=== PATIENT | male | born 1940 | race Caucasian/White ===

== ENCOUNTER 2020-04-26 23:43 | Inpatient (IN) | payer MEDICARE, SELFPAY ==
--- NOTE | ~2020-04-26 | CT_ITS ---
EXAMINATION: CT brain wo con INDICATION: Right-sided facial droop COMPARISON: None TECHNIQUE: Standard unenhanced head CT. The dose-length product (DLP) was 681.00 mGy-cm. The mA was a djusted according to patient size. Iterative reconstruction technique was employed. FINDINGS: There is no acute intraparenchymal hemorrhage. No evidence of mass lesion. No evidence of a cute infarction. There is moderate periventricular and subcortical hypodensity probably related to sm all vessel ischemic disease. There is moderate prominence of the sulci and ventricles related to cere bral atrophy. Intracranial calcified cerebral atherosclerosis is noted. There are no extra-axial henry ections. There is no mass effect or midline shift. The orbits and soft tissues are unremarkable. The re is mild mucosal thickening of the paranasal sinuses. IMPRESSION: 1. No acute intracranial abnormality. 2. Age related findings. As per stroke protocol, I called these results to the Emergency Department, and discussed with Dr. Yolanda Guajardo MD at 2350 hours on 04/26/2020. Reviewed, dictated and finalized at location A. E MANUFACTURE SUPERVISOR IMPRESSION: 1. No acute intracranial abnormality. 2. Age related findings. As per stroke protocol, I called these results to the Emergency Department, and discussed with Dr. Donte Guajardo MD at 2350 hours on 04/26/2020.
--- NOTE | ~2020-04-26 | XR_ITS ---
EXAMINATION: XR chest 1V portable DATE: 04/28/2020 08:43 INDICATION: COVID-19 pneumonia. Congestive heart failure. TECHNIQUE: A single frontal view of the chest was obtained. COMPARISON: Chest 2 views 04/27/2020 FINDINGS: There are airspace opacities in all lung zones bilaterally with a peripheral and lower lung predominance. No pleural effusion or pneumothorax. The heart size is normal. IMPRESSION: 1. Worsened diffuse lung disease, consistent with pneumonia. Reviewed, dictated and finalized at location B. ING MACHINE OPERATOR HELPER
--- NOTE | ~2020-04-26 | XR_ITS ---
EXAMINATION: XR chest 2V DATE: 04/27/2020 01:08 INDICATION: Shortness of breath TECHNIQUE: frontal and lateral views of the chest were obtained. COMPARISON: None FINDINGS: Evaluation particularly at the lower lung zones mildly limited by patient body habitus. Mild opacitie s at the lung bases which is better appreciated on the lateral projection. No pleural effusion or pne umothorax. The cardiomediastinal silhouette is within normal limits for AP technique. Small sliding-t ype hiatal hernia. 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 IMPRESSION: 1. Mild bibasilar opacities which could represent atelectasis, mild pulmonary edema, pneumonia or juliocesar e combination thereof. 2. Moderate-sized hiatal hernia. Reviewed, dictated and finalized at location A. ET SWEEPER OPERATOR IMPRESSION: 1. Mild bibasilar opacities which could represent atelectasis, mild pulmonary e lynn, pneumonia or some combination thereof. 2. Moderate-sized hiatal hernia.
[2020-04-26 23:43] VITALS: BP 150/84; PULSE 71; RESP 25; TEMP 36.8; O2SAT 81
--- NOTE | 2020-04-26 23:56 | ECG_ITS ---
Measurements Intervals [place] Rate: 71 P: 0 MD: 212 QRS: 25 QRSD: 136 T: 157 QT: 438 QTc: 477 Interpretive Statements SINUS RHYTHM WITH FIRST DEGREE AV BLOCK LEFT BUNDLE BRANCH BLOCK BASELINE ARTIFACT- I, II, AVR, AVL, AVF ABNORMAL ECG Electronically Signed On 04-27-2020 6:54:43 CAB DRIVER by Angel Dawn D.O.
[2020-04-27] VITALS (8 sets, daily range): BP systolic 97–157; BP diastolic 48–76; PULSE 70–89; RESP 18–20; TEMP 36.6–37.1; O2SAT 90–95; BMI 37.3
[2020-04-27 00:08] LABS: Glucose Point of Care 55 (65-105)
[2020-04-27 00:08] LABS: Glucose Point of Care 136 (65-105)
[2020-04-27] MEDS: DEXTROSE 50% 25 GM/50 ML SYRINGE (00:08)
--- NOTE | 2020-04-27 00:29 | PCRCNOTE ---
RT in room for ABG draw at 0010. Pt unavailable and out of room and continues to be out of room past 20 minutes
[2020-04-27 00:33] LABS: Basophils Percent Auto 0.1 % (0.2-1.2); Eosinophils Percent Auto 0.1 % (0-4.4); Hematocrit 37.2 % (42.0-52.0); Hemoglobin 12.4 g/dL (14.0-18.0); Immature Granulocyte Absolute 0.05 K/mm3 (0.00-0.031); Immature Granulocyte Percent A 0.6 % (0-0.5); Immature Platelet Fraction Pct 6.6 % (0.9-11.2); Lymphocytes Absolute Auto 1.01 K/mm3 (0.9-3.2); Lymphocytes Percent Auto 13.1 % (18.3-44.2); Mean Corpuscular HGB Conc 33.3 g/dl (32-36); Mean Corpuscular Hemoglobin 28.9 pg (26-34); Mean Corpuscular Volume 86.7 fl (80-100); Mean Platelet Volume 11.1 fl (7.4-10.4); Monocytes Absolute Auto 0.7 K/mm3 (0.1-0.6); Monocytes Percent Auto 9.1 % (2.6-8.5); Platelet Count Result 118 k/mm3 (150-375); Red Blood Count 4.29 M/mm3 (4.6-6.20); Red Cell Distribution Width 12.8 % (11.5-14.5); White Blood Count 7.7 K/mm3 (4.5-10.0)
[2020-04-27 00:35] LABS: INR 1.1; Prothrombin Time 14.3 Seconds (11.1-14.7)
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
[2020-04-27 00:38] LABS: Alanine Aminotransferase 38 U/L (4-50); Albumin Level 3.5 g/dL (3.5-5.1); Alkaline Phosphatase 72 U/L (38-126); Anion Gap 10 mmol/L (8-16); Aspartate Amino Transferase 68 U/L (17-59); Bilirubin,Total 1.2 mg/dL (0.2-1.3); Blood Urea Nitrogen 22 mg/dL (9-20); Calcium 8.4 mg/dL (8.4-10.2); Carbon Dioxide 22 mmol/L (22-30); Chloride 100 mmol/L (98-107); Estimated Glomerular Filt Rate > 60; Glucose 150 mg/dL (75-110); Potassium 4.6 mmol/L (3.4-5.0); Sodium 132 mmol/L (137-145)
[2020-04-27 00:47] LABS: NT Pro B Type Natriuretic Pept 1350 PG/ML (5-100)
[2020-04-27 00:50] LABS: Troponin I 0.022 ng/mL (0.000-0.034)
[2020-04-27 01:09] LABS: Atypical Lymphocytes Present
[2020-04-27 01:15] LABS: Base Excess ABG -1.6 mEq/l (+/-2.0); Carboxyhemoglobin 0.5 % THb (0-2.0); Fractional Inspired Oxygen 40 %; HCO3 ABG 20.6 mEq/l (22.0-26.0); Methemoglobin ABG 0.1 %THb (0-1.5); Oxygen Content ABG 17.3 %vol (16.0-22.0); Oxygen Saturation ABG 91.1 % (95.0-100.0); Oxyhemoglobin 89.7 % THb (90.0-100.0); PCO2 ABG 28.3 mmHg (35.0-45.0); PO2 ABG 54.7 mmHg (80.0-100.0); PO2 FiO2 Ratio Arterial Blood 1.37 %; Reduced Hemoglobin 9.7 %THb (0-5.0); Total Hemoglobin 13.7 g/dL (12.0-18.0)
[2020-04-27 01:16] LABS: Modified Allen's Test Pass; Site Drawn LEFT RADIAL
[2020-04-27 01:17] LABS: Device NASAL CANNULA
[2020-04-27 01:34] LABS: Glucose Point of Care 105 (65-105)
--- NOTE | 2020-04-27 02:12 | PC.NURSE ---
report to 3rd floor, room not ready.
[2020-04-27] MEDS: FUROSEMIDE INJ 40 MG/4 ML VIAL IV PUSH ×3 (02:23→20:54)
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
[2020-04-27 05:34] LABS: Add Urine Microscopic? YES; Appearance Urine Clear (Clear); Bilirubin Urine Negative (Negative); Blood Urine 1+ (Negative); Color Urine Straw (Yellow); Glucose Urine UA Negative (Negative); Ketones Urine Negative (Negative); Leukocyte Esterase Ur Negative LEU/UL (Negative); Mucus Urine Rare /lpf; Nitrate Urine Negative (Negative); Protein Urine 1+ mg/dL (Negative); RBC Urine 0-2 /hpf (0-2); Specific Grav Ur 1.008 (1.001-1.035); Urobilinogen Urine Negative mg/dL (<2.0); WBC Urine 0-3 /hpf
--- NOTE | 2020-04-27 05:42 | ADMGEN ---
This patient, Sae Wing, was admitted to [facility] Surg Room 306-01. Patient/family oriented to hospital policies and general routines including ID bracelet, bed and alarms, visiting hours, pain management, procedures, bathroom and other care routines, personal items, smoking policy, room service/diet, and visiting hours. Information on how to activate the Rapid Response Team has been discussed. Patient/Family are encouraged to report perceived risks to care and to ask questions if they do not understand what they are told or what they should do.
--- NOTE | 2020-04-27 06:09 | PC.NURSE ---
ATTEMPTS MADE X3 TO CALL PT'S SPOUSE TO CONFIRM MEDS AND VERIFY PT'S REPORTED HEALTH HX UPON ADMISSION, PT IS POOR HISTORIAN.
[2020-04-27 10:08] LABS: Thyroid Stimulating Hormone Reflex 0.801 uIU/mL (0.465-4.68)
[2020-04-27] MEDS: ATORVASTATIN 40 MG TABLET PO (10:35)
[2020-04-27] MEDS: CITALOPRAM HYDROBROMIDE 20 MG TABLET PO (10:35)
[2020-04-27] MEDS: GLIMEPIRIDE 2 MG TABLET 4 MG PO (10:35)
[2020-04-27] MEDS: FAMOTIDINE 20 MG TABLET PO (10:36)
[2020-04-27] MEDS: PANTOPRAZOLE 40 MG TABLET PO (10:36)
[2020-04-27] MEDS: lisinopriL 10 MG TABLET PO (10:36)
[2020-04-27] MEDS: ASPIRIN 325 MG TABLET PO (10:36)
[2020-04-27] MEDS: amLODIPine BESYLATE 5 MG TABLET PO (10:36)
[2020-04-27] MEDS: ENOXAPARIN 40 MG/0.4 ML SYRINGE SUB-Q (10:37)
[2020-04-27 11:21] LABS: Folic Acid > 20.0 ng/mL (2.76->20)
[2020-04-27 12:48] LABS: Glucose Point of Care 143 (65-105)
--- NOTE | 2020-04-27 16:16 | PM.IMPN ---
Progress Note: A&P Assessment and Plan (1) Acute respiratory failure with hypoxemia: Code(s): J96.01 - Acute respiratory failure with hypoxia Status: Acute Assessment and Plan: -noted on ABG on admission -chest x-ray shows pulmonary edema versus pneumonia -because of his lower extremity swelling, I suspect this is CHF. Will continue Lasix b.i.d. await echo -intake and output does not appear to be accurate at this time but I have asked nursing staff to record these -he was not on any oxygen during my exam although it was charted that he was 91% on 4 L earlier today -COVID-19 seems less likely, will await testing -no leukocytosis or fever, pneumonia seems less likely. No antibiotics needed at this time (2) Acute encephalopathy: Code(s): G93.40 - Encephalopathy, unspecified Status: Acute Assessment and Plan: Likely secondary to hypoglycemia -CT of the brain did not show any acute abnormalities -TSH normal -monitor neuro checks and obtain MRI if he continues to be confused (3) CHF exacerbation: Qualifiers: Heart failure type: unspecified Qualified Code(s): I50.9 - Heart failure, unspecified Code(s): I50.9 - Heart failure, unspecified Status: Acute Assessment and Plan: Unknown history - Continue IV lasix. -continue 2gram sodium prudent, fluid restricted diet. -Monitor fluid status, Daily weights, Is and O -await echo (4) Generalized weakness: Code(s): R53.1 - Weakness Status: Acute Assessment and Plan: PT and OT ordered (5) Person under investigation for COVID-19: Code(s): Z20.828 - Contact with and (suspected) exposure to other viral communicable diseases Status: Acute Assessment and Plan: Awaiting COVID-19 testing - Continue droplet isolation. - Continue supportive measures. Bronchodilators. (6) Normocytic anemia: Code(s): D64.9 - Anemia, unspecified Status: Acute Assessment and Plan: Stable monitor hemoglobin (7) Thrombocytopenia: Code(s): D69.6 - Thrombocytopenia, unspecified Status: Acute Assessment and Plan: Mildly low, will monitor especially while on Lovenox. If drops less than 100, will hold Lovenox (8) Diabetes: Qualifiers: Diabetes mellitus type: type 2 Diabetes mellitus terminal block assembler insulin use: with terminal block assembler use Diabetes mellitus complication status: without complication Qualified Code(s): E11.9 - Type 2 diabetes mellitus without complications; Z79.4 - terminal carman (current) use of insulin Code(s): E11.9 - Type 2 diabetes mellitus without complications Status: Chronic Assessment and Plan: Patient had hypoglycemia the day of admission -will draw A1c in the morning and possibly adjust medications -continue Accuchecks, SSI coverage, hypoglycemic protocol. (9) GERD (gastroesophageal reflux disease): Qualifiers: Esophagitis presence: esophagitis presence not specified Qualified Code(s): K21.9 - Gastro-esophageal reflux disease without esophagitis Code(s): K21.9 - Gastro-esophageal reflux disease without esophagitis Status: Chronic Assessment and Plan: Continue PPI therapy. (10) Hyperlipidemia: Qualifiers: Hyperlipidemia type: unspecified Qualified Code(s): E78.5 - Hyperlipidemia, unspecified Code(s): E78.5 - Hyperlipidemia, unspecified Status: Chronic Assessment and Plan: Continue atorvastatin PO. (11) Hypertension: Qualifiers: Hypertension type: unspecified Qualified Code(s): I10 - Essential (primary) hypertension Code(s): I10 - Essential (primary) hypertension Status: Chronic Assessment and Plan: Last blood pressure 111/59 -continue Lasix, Norvasc, and lisinopril Time Spent With Patient Time with patient: 25 - 35 minutes Subjective Date/time seen: 04/27/
[2020-04-27 18:52] LABS: SARS-CoV-2 RNA PCR Positive
[2020-04-27 21:38] LABS: Glucose Point of Care 128 (65-105)
[2020-04-28] VITALS (9 sets, daily range): BP systolic 93–147; BP diastolic 60–83; PULSE 66–89; RESP 18–20; TEMP 36–36.6; O2SAT 90–97
--- NOTE | 2020-04-28 04:43 | ECHO_ITS ---
Patient Info Name: Sae Wing Age: 79 years : 1940 Gender: Male Ht: 71 in Wt: 267 lbs BSA: 2.51 m2 HR: 84 bpm BP: 157 / 75 mmHg Technical Quality: Poor Exam Date: 04/28/2020 7:57 AM Exam Location: [facility] Patient Status: Inpatient Admit Date: 04/27/2020 Staff Ordering Physician: Sergio Rodriguez MD Check Viewer: Axel Das, JOSS, RT Attending Provider: Ирина Mcintosh PA-C Referring Physician: Jennifer SOMMER; Exam Type: CA echo doppler color flow Study Info Indications I50.9 - Heart failure, unspecified Complete two-dimensional, color flow and Doppler transthoracic echocardiogram is performed. Summary 1. Complete two-dimensional, color flow and Doppler transthoracic echocardiogram is performed. 2. Technically suboptimal study due to poor sonographic images. Definity contrast was not utilized. 3. Left ventricular chamber dimension is moderately enlarged. 4. Left ventricular systolic function is grossly estimated to be moderately reduced, estimated at 40-45%. 5. There is moderately increased left ventricular wall thickness. 6. Left ventricular septal wall motion is abnormal with septal motion related to bundle branch block. 7. The left ventricular diastolic function is grade I diastolic dysfunction. 8. E/e' 14 is mildly elevated. 9. Left atrial chamber dimension is mildly enlarged. 10. The aortic valve is not well visualized. 11. There is moderate aortic valve sclerosis. 12. The mitral valve has severely calcified annulus. 13. There is mild tricuspid valve regurgitation. Left Ventricle Technically suboptimal study due to poor sonographic images. Definity contrast was not utilized. E/e' 14 is mildly elevated. Left ventricular systolic function is grossly estimated to be moderately reduced, estimated at 40-45%. Left ventricular chamber dimension is moderately enlarged. There is moderately increased left ventricular wall thickness. Left ventricular septal wall motion is abnormal with septal motion related to bundle branch block. The left ventricular diastolic function is grade I diastolic dysfunction. Right Ventricle Right ventricular chamber dimension is not well visualized. Left Atria Left atrial chamber dimension is mildly enlarged. Right Atria Right atrial chamber dimension is not well visualized. Aortic Valve There is no aortic valve stenosis, based on valve area and peak velocity. Cannot determine number of aortic valve leaflets. The aortic valve is not well visualized. There is moderate aortic valve sclerosis. There is no aortic valve regurgitation. Pulmonic Valve There is no pulmonic regurgitation. Mitral Valve The mitral valve has severely calcified annulus. There is no mitral valve stenosis. There is no mitral valve regurgitation. Tricuspid Valve RVSP is not calculated due to an inadequate TR jet. There is mild tricuspid valve regurgitation. Pericardium/Pleural There is no pericardial effusion. Inferior Vena Cava Normal inferior vena cava with >50% collapse upon inspiration consistent with normal right atrial pressure, 5 mmHg. Aorta The aortic root size at the sinus of Valsalva is normal. Left Ventricular Outflow Tract Name Value Normal LVOT 2D
[2020-04-28 06:10] LABS: Hemoglobin 12.6 g/dL (14.0-18.0); Immature Platelet Fraction Pct 6.8 % (0.9-11.2); Mean Corpuscular HGB Conc 34.1 g/dl (32-36); Mean Corpuscular Hemoglobin 29.6 pg (26-34); Mean Corpuscular Volume 87.1 fl (80-100); Mean Platelet Volume 10.8 fl (7.4-10.4); Platelet Count Result 123 k/mm3 (150-375); Red Blood Count 4.25 M/mm3 (4.6-6.20); Red Cell Distribution Width 12.7 % (11.5-14.5); White Blood Count 7.6 K/mm3 (4.5-10.0)
[2020-04-28 06:24] LABS: Anion Gap 9 mmol/L (8-16); Blood Urea Nitrogen 27 mg/dL (9-20); Calcium 8.1 mg/dL (8.4-10.2); Carbon Dioxide 24 mmol/L (22-30); Chloride 101 mmol/L (98-107); Estimated CRCL calculation 61 ml/min; Estimated Glomerular Filt Rate 59; Glucose 100 mg/dL (75-110); Magnesium 1.8 mg/dL (1.6-2.3); Sodium 134 mmol/L (137-145)
[2020-04-28 06:25] LABS: Hemoglobin A1C 8.3 % (<5.7)
[2020-04-28 08:44] LABS: Alanine Aminotransferase 44 U/L (4-50)
[2020-04-28] MEDS: DEXAMETHASONE SOD PHOS INJ 4 MG/ML VIAL 6 MG IV PUSH (10:37)
[2020-04-28] MEDS: FUROSEMIDE INJ 40 MG/4 ML VIAL IV PUSH (10:38)
[2020-04-28] MEDS: ASPIRIN 325 MG TABLET PO (10:38)
[2020-04-28] MEDS: ENOXAPARIN 40 MG/0.4 ML SYRINGE SUB-Q (10:38)
[2020-04-28] MEDS: REMDESIVIR 200 MG/NS 250 ML 200 MG/250 ML BAG 250 MG IVPB (10:38)
[2020-04-28] MEDS: GLIMEPIRIDE 2 MG TABLET PO (10:39)
[2020-04-28] MEDS: CITALOPRAM HYDROBROMIDE 20 MG TABLET PO (10:39)
[2020-04-28] MEDS: ATORVASTATIN 40 MG TABLET PO (10:39)
[2020-04-28] MEDS: FAMOTIDINE 20 MG TABLET PO (10:40)
[2020-04-28] MEDS: PANTOPRAZOLE 40 MG TABLET PO (10:40)
[2020-04-28 12:40] LABS: Glucose Point of Care 137 (65-105)
--- NOTE | 2020-04-28 15:09 | PM.IMPN ---
Progress Note: A&P Assessment and Plan (1) Pneumonia due to COVID-19 virus: Code(s): U07.1 - COVID-19; J12.89 - Other viral pneumonia Status: Acute Assessment and Plan: Continue Remdesivir and Decadron -patient is currently on 4 L of oxygen and appears stable at this time (2) Acute respiratory failure with hypoxemia: Code(s): J96.01 - Acute respiratory failure with hypoxia Status: Acute Assessment and Plan: -due to COVID-19 pneumonia -patient is on 4 L of oxygen and appears stable at this time -will wean oxygen as tolerated -chest x-ray shows pulmonary edema versus pneumonia--likely a combination of both but mostly COVID-19 pneumonia -will adjust Lasix to daily. Echo shows EF of 40% (3) Acute encephalopathy: Code(s): G93.40 - Encephalopathy, unspecified Status: Acute Assessment and Plan: Likely secondary to hypoglycemia -CT of the brain did not show any acute abnormalities -TSH normal -no worsening confusion noted (4) Generalized weakness: Code(s): R53.1 - Weakness Status: Acute Assessment and Plan: PT and OT ordered (5) Normocytic anemia: Code(s): D64.9 - Anemia, unspecified Status: Acute Assessment and Plan: Stable monitor hemoglobin (6) Thrombocytopenia: Code(s): D69.6 - Thrombocytopenia, unspecified Status: Acute Assessment and Plan: Mildly low, will monitor especially while on Lovenox. If drops less than 100, will hold Lovenox (7) Diabetes: Qualifiers: Diabetes mellitus type: type 2 Diabetes mellitus terminal operations manager insulin use: with correction use Diabetes mellitus complication status: without complication Qualified Code(s): E11.9 - Type 2 diabetes mellitus without complications; Z79.4 - MCC (current) use of insulin Code(s): E11.9 - Type 2 diabetes mellitus without complications Status: Chronic Assessment and Plan: Patient had hypoglycemia the day of admission -likely due to decreased appetite due to COVID-19 -Last A1c 8.3 -continue Accuchecks, SSI coverage, hypoglycemic protocol. (8) GERD (gastroesophageal reflux disease): Qualifiers: Esophagitis presence: esophagitis presence not specified Qualified Code(s): K21.9 - Gastro-esophageal reflux disease without esophagitis Code(s): K21.9 - Gastro-esophageal reflux disease without esophagitis Status: Chronic Assessment and Plan: Continue PPI therapy. (9) Hyperlipidemia: Qualifiers: Hyperlipidemia type: unspecified Qualified Code(s): E78.5 - Hyperlipidemia, unspecified Code(s): E78.5 - Hyperlipidemia, unspecified Status: Chronic Assessment and Plan: Continue atorvastatin PO. (10) Hypertension: Qualifiers: Hypertension type: unspecified Qualified Code(s): I10 - Essential (primary) hypertension Code(s): I10 - Essential (primary) hypertension Status: Chronic Assessment and Plan: Last blood pressure 129/65 -continue Lasix, Norvasc, and lisinopril (11) Acute systolic heart failure: Code(s): I50.21 - Acute systolic (congestive) heart failure Status: Acute Assessment and Plan: Echo reveals systolic CHF with the ejection fraction of 40-45% -medical records show Dr. griffith in 2016 had records from [place] which showed an echo in 2006 within normal EF. That is the latest echo that I can find in the chart -should follow up with Dr. griffith outpatient after his recovery -will start Coreg low dose and monitor him -continue home lisinopril and lovastatin Subjective Date/time seen: 04/28/20 15:09 Interval history: Pt is a 79-year-old male here for likely CHF. Patient was seen today and has no complaints. He denies nausea, vomiting, fevers, chills, cough, chest pain, or shortness of breath. He states he can lay flat without any issues.
[2020-04-28 16:39] LABS: Glucose Point of Care 263 (65-105)
[2020-04-28] MEDS: INSULIN ASPART (*BKC) 100 UNITS/ML SUB-Q (17:57)
[2020-04-28] MEDS: carvediloL 3.125 MG TABLET PO (21:13)
[2020-04-28 21:31] LABS: Glucose Point of Care 319 (65-105)
[2020-04-29] VITALS (10 sets, daily range): BP systolic 124–150; BP diastolic 44–73; PULSE 54–78; RESP 18–20; TEMP 36.2–36.6; O2SAT 90–95
[2020-04-29 06:44] LABS: Alanine Aminotransferase 43 U/L (4-50)
[2020-04-29 06:58] LABS: Alanine Aminotransferase 42 U/L (4-50); Albumin Level 3.4 g/dL (3.5-5.1); Alkaline Phosphatase 83 U/L (38-126); Anion Gap 10 mmol/L (8-16); Aspartate Amino Transferase 61 U/L (17-59); Blood Urea Nitrogen 36 mg/dL (9-20); Calcium 8.1 mg/dL (8.4-10.2); Carbon Dioxide 25 mmol/L (22-30); Chloride 101 mmol/L (98-107); Estimated CRCL calculation 57 ml/min; Estimated Glomerular Filt Rate 54; Glucose 276 mg/dL (75-110); Potassium 4.3 mmol/L (3.4-5.0); Sodium 136 mmol/L (137-145)
[2020-04-29 07:16] LABS: CRP 15.6 mg/dL (<1.0)
[2020-04-29] MEDS: FAMOTIDINE 20 MG TABLET PO (09:24)
[2020-04-29] MEDS: CITALOPRAM HYDROBROMIDE 20 MG TABLET PO (09:24)
[2020-04-29] MEDS: PANTOPRAZOLE 40 MG TABLET PO (09:24)
[2020-04-29] MEDS: ATORVASTATIN 40 MG TABLET PO (09:24)
[2020-04-29] MEDS: ASPIRIN 325 MG TABLET PO (09:27)
[2020-04-29] MEDS: carvediloL 3.125 MG TABLET PO ×2 (09:28→20:58)
[2020-04-29] MEDS: ENOXAPARIN 40 MG/0.4 ML SYRINGE SUB-Q ×2 (09:29→20:59)
[2020-04-29] MEDS: DEXAMETHASONE SOD PHOS INJ 4 MG/ML VIAL 6 MG IV PUSH (09:29)
[2020-04-29] MEDS: FUROSEMIDE INJ 40 MG/4 ML VIAL IV PUSH (09:30)
[2020-04-29] MEDS: INSULIN ASPART (*BKC) 100 UNITS/ML SUB-Q ×3 (09:48→17:52)
[2020-04-29 09:56] LABS: Glucose Point of Care 340 (65-105)
[2020-04-29] MEDS: REMDESIVIR 100 MG/NS 250 ML 100 MG/250 ML BAG 250 MG IVPB (11:44)
--- NOTE | 2020-04-29 16:31 | PM.IMPN ---
Progress Note: A&P Assessment and Plan (1) Pneumonia due to COVID-19 virus: Code(s): U07.1 - COVID-19; J12.89 - Other viral pneumonia Status: Acute Assessment and Plan: Continue Remdesivir and Decadron -patient is currently on 4 L of oxygen and appears stable at this time -will wean oxygen as tolerated (2) Acute respiratory failure with hypoxemia: Code(s): J96.01 - Acute respiratory failure with hypoxia Status: Acute Assessment and Plan: -due to COVID-19 pneumonia -patient is on 4 L of oxygen and appears stable at this time -will wean oxygen as tolerated -chest x-ray shows pulmonary edema versus pneumonia--likely a combination of both but mostly COVID-19 pneumonia -continue Lasix daily. Echo shows EF of 40% (3) Acute encephalopathy: Code(s): G93.40 - Encephalopathy, unspecified Status: Acute Assessment and Plan: Likely secondary to hypoglycemia -CT of the brain did not show any acute abnormalities -TSH normal -no worsening confusion noted (4) Generalized weakness: Code(s): R53.1 - Weakness Status: Acute Assessment and Plan: PT and OT ordered (5) Normocytic anemia: Code(s): D64.9 - Anemia, unspecified Status: Acute Assessment and Plan: Stable monitor hemoglobin (6) Thrombocytopenia: Code(s): D69.6 - Thrombocytopenia, unspecified Status: Acute Assessment and Plan: Mildly low, will monitor especially while on Lovenox. If drops less than 100, will hold Lovenox (7) Diabetes: Qualifiers: Diabetes mellitus complication status: without complication Diabetes mellitus supervisor maintenance and custodians insulin use: with supervisor maintenance and custodians use Diabetes mellitus type: type 2 Qualified Code(s): E11.9 - Type 2 diabetes mellitus without complications; Z79.4 - penitentiary (current) use of insulin Code(s): E11.9 - Type 2 diabetes mellitus without complications Status: Chronic Assessment and Plan: Patient had hypoglycemia the day of admission -likely due to decreased appetite due to COVID-19 -patient is now hyperglycemic due to steroids and eating more. Will add back Lantus and continue Amaryl. Amaryl may be increased if he continues to run high -Last A1c 8.3 -continue Accuchecks, SSI coverage, hypoglycemic protocol. (8) GERD (gastroesophageal reflux disease): Qualifiers: Esophagitis presence: esophagitis presence not specified Qualified Code(s): K21.9 - Gastro-esophageal reflux disease without esophagitis Code(s): K21.9 - Gastro-esophageal reflux disease without esophagitis Status: Chronic Assessment and Plan: Continue PPI therapy. (9) Hyperlipidemia: Qualifiers: Hyperlipidemia type: unspecified Qualified Code(s): E78.5 - Hyperlipidemia, unspecified Code(s): E78.5 - Hyperlipidemia, unspecified Status: Chronic Assessment and Plan: Continue atorvastatin PO. (10) Hypertension: Qualifiers: Hypertension type: unspecified Qualified Code(s): I10 - Essential (primary) hypertension Code(s): I10 - Essential (primary) hypertension Status: Chronic Assessment and Plan: Last blood pressure 132/62 -continue Lasix, carvedilol, Norvasc, and lisinopril (11) Acute systolic heart failure: Code(s): I50.21 - Acute systolic (congestive) heart failure Status: Acute Assessment and Plan: Echo reveals systolic CHF with the ejection fraction of 40-45% -medical records show Dr. griffith in 2016 had records from [place] which showed an echo in 2006 within normal EF. That is the latest echo that I can find in the chart -should follow up with Dr. griffith outpatient after his recovery -low-dose Coreg started 04/28 -continue home lisinopril and atorvastatin Subjective Date/time seen: 04/29/20 16:31 Interval history: Pt is a 79-year-old male here for likely CHF
[2020-04-29 17:57] LABS: Glucose Point of Care 351 (65-105)
[2020-04-29 17:57] LABS: Glucose Point of Care 419 (65-105)
[2020-04-29] MEDS: INSULIN GLARGINE (*BKC) 100 UNITS/ML 10 UNITS SUB-Q ×2 (18:00→20:58)
[2020-04-29 21:37] LABS: Glucose Point of Care 429 (65-105)
[2020-04-29] MEDS: INSULIN ASPART (*BKC) 100 UNITS/ML 6 UNITS SUB-Q (22:09)
[2020-04-30] VITALS (10 sets, daily range): BP systolic 125–140; BP diastolic 50–61; PULSE 55–67; RESP 16–22; TEMP 36.1–36.7; O2SAT 91–98
[2020-04-30 04:04] LABS: Glucose Point of Care 340 (65-105)
[2020-04-30 06:26] LABS: Hematocrit 34.8 % (42.0-52.0); Mean Corpuscular HGB Conc 34.5 g/dl (32-36); Mean Corpuscular Hemoglobin 29.9 pg (26-34); Mean Corpuscular Volume 86.6 fl (80-100); Mean Platelet Volume 10.8 fl (7.4-10.4); Platelet Count Result 165 k/mm3 (150-375); Red Blood Count 4.02 M/mm3 (4.6-6.20); Red Cell Distribution Width 12.4 % (11.5-14.5)
[2020-04-30 06:58] LABS: Alanine Aminotransferase 35 U/L (4-50); Albumin Level 3.1 g/dL (3.5-5.1); Alkaline Phosphatase 80 U/L (38-126); Anion Gap 9 mmol/L (8-16); Aspartate Amino Transferase 41 U/L (17-59); Bilirubin,Total 0.9 mg/dL (0.2-1.3); Blood Urea Nitrogen 41 mg/dL (9-20); CRP 6.9 mg/dL (<1.0); Calcium 8.2 mg/dL (8.4-10.2); Carbon Dioxide 26 mmol/L (22-30); Chloride 101 mmol/L (98-107); Estimated CRCL calculation 56 ml/min; Estimated Glomerular Filt Rate 54; Glucose 295 mg/dL (75-110); Potassium 4.1 mmol/L (3.4-5.0); Sodium 136 mmol/L (137-145)
[2020-04-30] MEDS: GLIMEPIRIDE 2 MG TABLET PO (08:46)
[2020-04-30] MEDS: INSULIN ASPART (*BKC) 100 UNITS/ML SUB-Q ×3 (08:46→18:03)
[2020-04-30] MEDS: FAMOTIDINE 20 MG TABLET PO (08:46)
[2020-04-30] MEDS: ASPIRIN 325 MG TABLET PO (08:46)
[2020-04-30] MEDS: CITALOPRAM HYDROBROMIDE 20 MG TABLET PO (08:47)
[2020-04-30] MEDS: carvediloL 3.125 MG TABLET PO ×2 (08:47→20:12)
[2020-04-30] MEDS: ENOXAPARIN 40 MG/0.4 ML SYRINGE SUB-Q ×2 (08:47→20:12)
[2020-04-30] MEDS: FUROSEMIDE INJ 40 MG/4 ML VIAL IV PUSH (08:47)
[2020-04-30] MEDS: PANTOPRAZOLE 40 MG TABLET PO (08:47)
[2020-04-30] MEDS: DEXAMETHASONE SOD PHOS INJ 4 MG/ML VIAL 6 MG IV PUSH (08:47)
[2020-04-30] MEDS: ATORVASTATIN 40 MG TABLET PO (08:47)
[2020-04-30 09:08] LABS: Glucose Point of Care 276 (65-105)
[2020-04-30] MEDS: REMDESIVIR 100 MG/NS 250 ML 100 MG/250 ML BAG 250 MG IVPB (10:46)
[2020-04-30] MEDS: INSULIN ASPART (*BKC) 100 UNITS/ML 10 UNITS SUB-Q (13:11)
[2020-04-30 14:26] LABS: Glucose Point of Care 434 (65-105)
[2020-04-30 14:56] LABS: Glucose Point of Care 446 (65-105)
--- NOTE | 2020-04-30 16:04 | PM.IMPN ---
Progress Note: A&P Assessment and Plan (1) Pneumonia due to COVID-19 virus: Code(s): U07.1 - COVID-19; J12.89 - Other viral pneumonia Status: Acute Assessment and Plan: Continue Remdesivir and Decadron -patient is currently on room air and doing well -will likely discharge tomorrow once glucose has improved (2) Acute respiratory failure with hypoxemia: Code(s): J96.01 - Acute respiratory failure with hypoxia Status: Acute Assessment and Plan: -due to COVID-19 pneumonia -currently on room air -chest x-ray shows pulmonary edema versus pneumonia--likely a combination of both but mostly COVID-19 pneumonia -continue Lasix daily. Echo shows EF of 40% (3) Acute encephalopathy: Code(s): G93.40 - Encephalopathy, unspecified Status: Acute Assessment and Plan: Likely secondary to hypoglycemia -CT of the brain did not show any acute abnormalities -TSH normal -no worsening confusion noted (4) Generalized weakness: Code(s): R53.1 - Weakness Status: Acute Assessment and Plan: PT and OT ordered (5) Normocytic anemia: Code(s): D64.9 - Anemia, unspecified Status: Acute Assessment and Plan: Stable monitor hemoglobin (6) Thrombocytopenia: Code(s): D69.6 - Thrombocytopenia, unspecified Status: Acute Assessment and Plan: Within normal limits today -monitor while on Lovenox (7) Diabetes: Qualifiers: Diabetes mellitus type: type 2 Diabetes mellitus correction insulin use: with correction use Diabetes mellitus complication status: without complication Qualified Code(s): E11.9 - Type 2 diabetes mellitus without complications; Z79.4 - jail (current) use of insulin Code(s): E11.9 - Type 2 diabetes mellitus without complications Status: Chronic Assessment and Plan: Patient had hypoglycemia the day of admission -likely due to decreased appetite due to COVID-19 -patient is now hyperglycemic due to steroids and eating more. Sliding scale and long-acting insulin increased. -Amaryl may be increased if he continues to run high tomorrow. I do not want is overcorrect as he was hypoglycemic on admission -Last A1c 8.3 -continue Accuchecks, SSI coverage, hypoglycemic protocol. (8) GERD (gastroesophageal reflux disease): Qualifiers: Esophagitis presence: esophagitis presence not specified Qualified Code(s): K21.9 - Gastro-esophageal reflux disease without esophagitis Code(s): K21.9 - Gastro-esophageal reflux disease without esophagitis Status: Chronic Assessment and Plan: Continue PPI therapy. (9) Hyperlipidemia: Qualifiers: Hyperlipidemia type: unspecified Qualified Code(s): E78.5 - Hyperlipidemia, unspecified Code(s): E78.5 - Hyperlipidemia, unspecified Status: Chronic Assessment and Plan: Continue atorvastatin PO. (10) Hypertension: Qualifiers: Hypertension type: unspecified Qualified Code(s): I10 - Essential (primary) hypertension Code(s): I10 - Essential (primary) hypertension Status: Chronic Assessment and Plan: Last blood pressure 140/56 -continue Lasix, carvedilol, Norvasc, and lisinopril (11) Acute systolic heart failure: Code(s): I50.21 - Acute systolic (congestive) heart failure Status: Acute Assessment and Plan: Echo reveals systolic CHF with the ejection fraction of 40-45% -medical records show Dr. griffith in 2016 had records from [place] which showed an echo in 2006 within normal EF. That is the latest echo that I can find in the chart -should follow up with Dr. griffith outpatient after his recovery -low-dose Coreg started 04/28 -continue home lisinopril and atorvastatin Subjective Date/time seen: 04/30/20 16:04 Interval history: Pt is a 79-year-old male here for COVID-19 and CHF. Patient was see
[2020-04-30] MEDS: BISACODYL 5 MG TABLET EC PO (16:20)
[2020-04-30 17:29] LABS: Glucose Point of Care 474 (65-105)
[2020-04-30] MEDS: INSULIN GLARGINE (*BKC) 100 UNITS/ML 10 UNITS SUB-Q (18:02)
[2020-04-30] MEDS: SENNOSIDES 8.6 MG TABLET PO (20:12)
[2020-04-30] MEDS: INSULIN GLARGINE (*BKC) 100 UNITS/ML 16 UNITS SUB-Q (20:13)
[2020-04-30] MEDS: INSULIN ASPART (*BKC) 100 UNITS/ML 12 UNITS SUB-Q (21:06)
[2020-04-30 21:36] LABS: Glucose Point of Care 459 (65-105)
[2020-05-01] VITALS: BP 143/60; PULSE 55; RESP 18; TEMP 36.2; O2SAT 90
[2020-05-01 01:13] LABS: Glucose Point of Care 329 (65-105)
[2020-05-01 04:00] VITALS: BP 144/78; PULSE 62; RESP 18; TEMP 36.2; O2SAT 91
[2020-05-01 07:25] LABS: Alanine Aminotransferase 29 U/L (4-50); Anion Gap 7 mmol/L (8-16); Blood Urea Nitrogen 39 mg/dL (9-20); Calcium 8.4 mg/dL (8.4-10.2); Carbon Dioxide 26 mmol/L (22-30); Chloride 102 mmol/L (98-107); Estimated CRCL calculation 65 ml/min; Estimated Glomerular Filt Rate > 60; Glucose 234 mg/dL (75-110); Potassium 4.1 mmol/L (3.4-5.0); Sodium 135 mmol/L (137-145)
[2020-05-01 08:00] VITALS: BP 151/63; PULSE 61; PULSE 67; RESP 18; RESP 20; TEMP 36.3; O2SAT 90; O2SAT 92
[2020-05-01 09:34] LABS: Glucose Point of Care 194 (65-105)
[2020-05-01] MEDS: ASPIRIN 325 MG TABLET PO (09:41)
[2020-05-01] MEDS: GLIMEPIRIDE 2 MG TABLET PO (09:42)
[2020-05-01] MEDS: ATORVASTATIN 40 MG TABLET PO (09:42)
[2020-05-01] MEDS: CITALOPRAM HYDROBROMIDE 20 MG TABLET PO (09:42)
[2020-05-01] MEDS: FAMOTIDINE 20 MG TABLET PO (09:42)
[2020-05-01 09:43] VITALS: PULSE 61
[2020-05-01] MEDS: carvediloL 3.125 MG TABLET PO (09:43)
[2020-05-01] MEDS: PANTOPRAZOLE 40 MG TABLET PO (09:43)
[2020-05-01] MEDS: BISACODYL 5 MG TABLET EC PO (09:43)
[2020-05-01] MEDS: ENOXAPARIN 40 MG/0.4 ML SYRINGE SUB-Q (09:43)
[2020-05-01] MEDS: DEXAMETHASONE SOD PHOS INJ 4 MG/ML VIAL 6 MG IV PUSH (09:43)
[2020-05-01] MEDS: FUROSEMIDE INJ 40 MG/4 ML VIAL IV PUSH (09:44)
[2020-05-01] MEDS: REMDESIVIR 100 MG/NS 250 ML 100 MG/250 ML BAG 250 MG IVPB (09:44)
[2020-05-01 12:00] VITALS: BP 176/64; PULSE 67; RESP 20; TEMP 36.4; O2SAT 92
[2020-05-01 12:15] LABS: Glucose Point of Care 345 (65-105)
--- NOTE | 2020-05-01 12:17 | PM.DS ---
DS: Admitting Diagnosis Admitting Diagnosis Admitting Diagnosis: covid pui, hypoxia, chf, metabolic encephalopathy DS: Discharge Diagnosis Discharge Diagnosis (1) Pneumonia due to COVID-19 virus: Code(s): U07.1 - COVID-19; J12.89 - Other viral pneumonia Status: Acute Assessment and Plan: Patient received Remdesivir and Decadron while hospitalized -he was weaned off oxygen before discharge -educated the patient and on quaranting guidelines (2) Acute respiratory failure with hypoxemia: Code(s): J96.01 - Acute respiratory failure with hypoxia Status: Acute Assessment and Plan: -due to COVID-19 pneumonia -on room air at discharge -chest x-ray shows pulmonary edema versus pneumonia--likely a combination of both but mostly COVID-19 pneumonia (3) Acute encephalopathy: Code(s): G93.40 - Encephalopathy, unspecified Status: Acute Assessment and Plan: Likely secondary to hypoglycemia -CT of the brain did not show any acute abnormalities -TSH normal -no worsening confusion noted (4) Generalized weakness: Code(s): R53.1 - Weakness Status: Acute Assessment and Plan: PT and OT ordered (5) Normocytic anemia: Code(s): D64.9 - Anemia, unspecified Status: Acute Assessment and Plan: Stable monitor hemoglobin (6) Thrombocytopenia: Code(s): D69.6 - Thrombocytopenia, unspecified Status: Acute Assessment and Plan: Within normal limits (7) Diabetes: Qualifiers: Diabetes mellitus complication status: without complication Diabetes mellitus group home insulin use: with intermediate manager use Diabetes mellitus type: type 2 Qualified Code(s): E11.9 - Type 2 diabetes mellitus without complications; Z79.4 - correction (current) use of insulin Code(s): E11.9 - Type 2 diabetes mellitus without complications Status: Chronic Assessment and Plan: Patient had hypoglycemia the day of admission -likely due to decreased appetite due to COVID-19 -patient is now hyperglycemic due to steroids and eating more. Glucose 345 but Decadron was stopped at discharge -continue home meds -Last A1c 8.3 (8) GERD (gastroesophageal reflux disease): Qualifiers: Esophagitis presence: esophagitis presence not specified Qualified Code(s): K21.9 - Gastro-esophageal reflux disease without esophagitis Code(s): K21.9 - Gastro-esophageal reflux disease without esophagitis Status: Chronic Assessment and Plan: Continue PPI therapy. (9) Hyperlipidemia: Qualifiers: Hyperlipidemia type: unspecified Qualified Code(s): E78.5 - Hyperlipidemia, unspecified Code(s): E78.5 - Hyperlipidemia, unspecified Status: Chronic Assessment and Plan: Continue atorvastatin PO. (10) Hypertension: Qualifiers: Hypertension type: unspecified Qualified Code(s): I10 - Essential (primary) hypertension Code(s): I10 - Essential (primary) hypertension Status: Chronic Assessment and Plan: Last blood pressure 176/64 -continue Lasix, carvedilol, Norvasc, and lisinopril (11) Acute systolic heart failure: Code(s): I50.21 - Acute systolic (congestive) heart failure Status: Acute Assessment and Plan: Echo reveals systolic CHF with the ejection fraction of 40-45% -medical records show Dr. griffith in 2016 had records from [place] which showed an echo in 2006 within normal EF. That is the latest echo that I can find in the chart -should follow up with Dr. griffith outpatient after his recovery. I spoke to his about this -low-dose Coreg started 04/28 -continue home lisinopril and atorvastatin -he was given Lasix during his stay. He is to follow with his primary care physician and/or poacher operator to see if this needs to be a routine medication. He was euvolemic at discharge DS: Summar
[2020-05-01] MEDS: INSULIN ASPART (*BKC) 100 UNITS/ML SUB-Q (12:35)
== END 2020-05-01 14:30 | disposition home health service (06) | DRG 177 ==
LOC: ANHED 04-27 01:39 → ANH3MEDSUR 04-27 01:45
PROVIDERS: Physician Assistant; Admitting Provider Family Medicine; Emergency Provider Emergency Medicine; PCP Internal Medicine; Visit Provider Family Medicine
DX: U07.1 COVID-19 (principal); J12.89 Other viral pneumonia; J96.01 Acute respiratory failure with hypoxia; G93.41 Metabolic encephalopathy; I50.21 Acute systolic (congestive) heart failure; I11.0 Hypertensive heart disease with heart failure; E11.649 Type 2 diabetes mellitus with hypoglycemia without coma; D64.9 Anemia, unspecified; D69.6 Thrombocytopenia, unspecified; K21.9 Gastro-esophageal reflux disease without esophagitis; E78.5 Hyperlipidemia, unspecified; G47.33 Obstructive sleep apnea (adult) (pediatric); Z96.653 Presence of artificial knee joint, bilateral; Z79.4 Long term (current) use of insulin; Z87.891 Personal history of nicotine dependence
CPT/HCPCS: 36415; 36600; 70450; 71045; 71046; 80048; 80053; 80076; 81001; 82375; 82607; 82746; 82805; 82948; 83036; 83050; 83735; 83880; 84443; 84460; 84484; 85025; 85027; 85055; 85610; 85730; 86140; 87635; 93005; 93306; 96372; 96374; 96375; 96376; 97110; 97116; 97161; 97165; 97530; 97535; 99285; A9270; C9803; G0378; J1100; J1650; J1815; J1940; U0003

== ENCOUNTER 2022-04-19 12:03 | Emergency (ER) | payer MEDICARE, SELFPAY ==
[2022-04-19] VITALS (10 sets, daily range): BP systolic 158–193; BP diastolic 69–85; PULSE 68–80; RESP 14–20; TEMP 36.1–36.4; O2SAT 94–98
--- NOTE | ~2022-04-19 | CT_ITS ---
EXAMINATION: CT brain wo con DATE: 04/19/2022 16:19 INDICATION: falls . TECHNIQUE: Computed tomography (CT) of the head was performed without intravenous contrast. The mA wa s adjusted according to patient size. Iterative reconstruction technique was employed. The dose-lengt h product was 681.00 mGy-cm. COMPARISON: 04/26/2020. FINDINGS: No acute intracranial hemorrhage or extra-axial fluid collection. No hydrocephalus, mass, or herniation. No acute ischemic infarct. Unremarkable dural venous sinus attenuation. No acute osseous abnormality. Mild mucosal thickening in the anterior ethmoid sinuses and bilateral maxillary sinuses, the remainin g aerated spaces are clear. Moderate atrophy and chronic white matter change. Atherosclerotic intracranial calcification. Bilater al lens replacements. Bilateral basal ganglia calcification. IMPRESSION: No acute intracranial process. Reviewed, dictated and finalized at location K. SITTER
--- NOTE | ~2022-04-19 | XR_ITS ---
XR chest 2V 04/19/2022 13:20 Indication: Productive cough Procedure: 2 view chest Comparison: 04/28/2020 Findings: There is chronic bibasilar airspace disease. Heart size normal. No significant effusion or pneumothorax. No acute osseous abnormality. Impression: 1: Chronic bibasilar airspace disease may represent atelectasis/fibrosis, atypical pneumonia and/or e lynn. Reviewed, dictated and finalized at location A. OPERATIONS INTELLIGENCE OFFICER Impression: 1: Chronic bibasilar airspace disease may represent atelectasis/fibrosis, atypi daiana pneumonia and/or edema.
--- NOTE | ~2022-04-19 | CT_ITS ---
EXAMINATION: CT cervical spine wo con DATE: 04/19/2022 16:24 INDICATION: falls TECHNIQUE: Computed tomography (CT) of the cervical spine was performed without intravenous contrast. Automated exposure control and iterative reconstruction technique were employed. The dose-length pro duct was 527.50 mGy-cm. COMPARISON: None FINDINGS: Vertebral Body Alignment: Intact. Craniocervical and atlantoaxial alignment: Moderate degenerative change, with pannus. Alignment intac t. Osseous structures/fracture: No evidence of a lytic or blastic process in the visualized spine. No e vidence of acute fracture. Degenerative changes at the bilateral sternoclavicular joints. Possible ol d medial left clavicular fracture. Cervical soft tissues: The paraspinal soft tissues planes are maintained. Atherosclerotic calcificati ons in the carotid bifurcations. Degenerative changes: Multilevel severe degenerative disc disease. No severe central canal or neural foraminal narrowing. Posteriorly directed disc protrusion/osteophyte complex at C4-5 ircausing mild c entral canal stenosis. IMPRESSION: No acute fracture or traumatic malalignment in the cervical spine. Reviewed, dictated and finalized at location K. GE RUNNER
--- NOTE | 2022-04-19 13:04 | ECG_ITS ---
Measurements Intervals [place] Rate: 77 P: -11 RI: 216 QRS: 23 QRSD: 142 T: 111 QT: 431 QTc: 489 Interpretive Statements SINUS RHYTHM WITH FIRST DEGREE AV BLOCK LEFT BUNDLE BRANCH BLOCK BASELINE ARTIFACT- I, II, III, AVR, AVL, AVF ABNORMAL ECG COMPARED TO ECG 04/26/2020 23:47:12 NO SIGNIFICANT CHANGES Electronically Signed On 04-19-2022 16:11:42 INTERFACE CONTROL OFFICER by Angel Dawn D.O.
[2022-04-19 15:23] LABS: Basophils Absolute Auto 0.1 K/mm3 (0.0-0.1); Basophils Percent Auto 0.5 % (0.2-1.2); Eosinophils Absolute Auto 0.3 K/mm3 (0-0.3); Eosinophils Percent Auto 2.2 % (0-4.4); Hematocrit 33.4 % (42.0-52.0); Hemoglobin 10.6 g/dL (14.0-18.0); Immature Granulocyte Absolute 0.09 K/mm3 (0.00-0.031); Immature Granulocyte Percent A 0.8 % (0-0.5); Lymphocytes Absolute Auto 1.84 K/mm3 (0.9-3.2); Lymphocytes Percent Auto 16.3 % (18.3-44.2); Mean Corpuscular HGB Conc 31.7 g/dl (32-36); Mean Corpuscular Hemoglobin 28.9 pg (26-34); Mean Platelet Volume 9.5 fl (7.4-10.4); Monocytes Absolute Auto 1.1 K/mm3 (0.1-0.6); Monocytes Percent Auto 9.8 % (2.6-8.5); Neutrophils Absolute Auto 7.9 K/mm3 (1.3-6.7); Neutrophils Percent Auto 70.4 % (45.5-73.1); Platelet Count Result 346 k/mm3 (150-375); Red Blood Count 3.67 M/mm3 (4.6-6.20); Red Cell Distribution Width 13.5 % (11.5-14.5); White Blood Count 11.3 K/mm3 (4.5-10.0)
--- NOTE | 2022-04-19 15:56 | ED.SOB ---
HPI - SOB/Dyspnea General Chief Complaint: Shortness of Breath/Dyspnea Stated Complaint: sent by pcp, she thinks I have pneumonia Time Seen by Provider: 04/19/22 14:56 History of Present Illness HPI Narrative: Patient is a 81-year-old male with a history of hypertension, hyperlipidemia, diabetes presenting with cough. Patient states that he has had a productive cough for the last 5 days. He was given an antibiotic by his PCP but unfortunately his symptoms have continued. States that he has had multiple falls with the last being approximately 2 to 3 days ago. States that after the fall he experienced some floaters in his vision which she does not currently have. States that he has had a headache since then. He was seen by his PCP earlier today who advised he come in for further evaluation given the multiple falls. There is concerned he has pneumonia. Currently, he states his only complaint is that he has to pee. He denies fevers, chest pain, shortness of breath, abdominal pain, nausea or vomiting, diarrhea, leg swelling. Related Data Home Medications Medication Instructions Recorded Confirmed aspirin 325 mg tablet 325 mg PO DAILY 04/27/20 04/19/22 glimepiride 4 mg tablet 4 mg PO DAILY 04/27/20 04/19/22 insulin detemir U-100 100 unit/mL 50 unit subcut DAILY 04/27/20 04/19/22 (3 mL) subcutaneous pen (Levemir FlexTouch U-100 Insulin) cholecalciferol (vitamin D3) 25 25 mcg PO DAILY 05/20/20 04/19/22 mcg (1,000 unit) capsule multivitamin 1 tablet PO DAILY 05/20/20 04/19/22 omega-3 fatty acids 1,000 mg 1,000 mg PO DAILY 05/20/20 04/19/22 capsule (Fish Oil Concentrate) famotidine 20 mg tablet 20 mg PO DAILY 03/17/22 04/19/22 insulin lispro 100 unit/mL 1 sliding scale dose subcut 03/17/22 04/19/22 subcutaneous pen (Humalog KwikPen USEASDIRECTD (U-100) Insulin) budesonide 160 mcg-glycopyr 9 2 inh inhalation QAM AND QPM 04/14/22 04/19/22 mcg-formot 4.8 mcg/actuation HFA inhaler (Breztri Aerosphere) Allergies Allergy/AdvReac Type Severity Reaction Status Date / Time No Known Allergies Allergy Verified 04/19/22 13:00 Review of Systems Review of Systems: All systems reviewed & are unremarkable except as noted in HPI and below PMFSH Past Medical History Medical History Arthritis Charcot foot due to diabetes mellitus Contusion of left hip, initial encounter Diabetes Diabetes 1.5, managed as type 1 Dyslipidemia Essential hypertension Fatigue GERD (gastroesophageal reflux disease) Hyperlipidemia Hypersomnia Hypertension LBBB (left bundle branch block) Obesity Obesity, Class III, BMI 40-49.9 (morbid obesity) Obstructive sleep apnea Obstructive sleep apnea, adult Peripheral neuropathy due to metabolic disorder Primary osteoarthritis of left hip Primary osteoarthritis of right hip Surgical History Surgical History History of facial surgery History of knee surgery History of repair of rotator cuff History of shoulder surgery History of total bilateral knee replacement Presence of left artificial knee joint Family History Family History Mother Family history of colonic diverticulitis Father Cerebrovascular accident Social History Social History Smoking packs per day: 3 Smoking cigarettes per day: 60.0 Years smoked: 3 Smoking pack-years: 9.00 Smoking status: Former smoker Tobacco type: cigarettes Second hand tobacco smoke exposure: No Alcohol intake: never Substance use: never Substance use type: does not use Gender identity (if verbalized by the patient): Male Sexual Orientation (if Verbalized by the Patient): Straight or Heterosexual Spiritual care concerns: No Exam Narrative: GENERAL: Well-appearing, well-nourished, and in no acute dis
[2022-04-19 16:55] LABS: Influenza A QL RT-PCR Negative (Negative); Influenza B QL RT-PCR Negative (Negative); SARS-CoV-2 RNA PCR Negative
[2022-04-19 17:05] LABS: Alanine Aminotransferase 53 U/L (6-50); Albumin Level 3.6 g/dL (3.5-5.1); Alkaline Phosphatase 133 U/L (38-126); Anion Gap 7 mmol/L (8-16); Aspartate Amino Transferase 50 U/L (17-59); Bilirubin,Total 0.8 mg/dL (0.2-1.3); Blood Urea Nitrogen 27 mg/dL (9-20); Calcium 8.5 mg/dL (8.4-10.2); Carbon Dioxide 26 mmol/L (22-30); Chloride 104 mmol/L (98-107); Estimated CRCL calculation 58 ml/min; Estimated Glomerular Filt Rate 58; Glucose 91 mg/dL (65-110); Sodium 137 mmol/L (137-145)
[2022-04-19] MEDS: SODIUM CHLORIDE 0.9% IV 1,000 ML 999 ML IV CONT (17:48)
[2022-04-19] MEDS: DOXYCYCLINE HYCLATE 100 MG TABLET PO (18:16)
== END 2022-04-19 19:28 | disposition home or self-care (01) ==
PROVIDERS: Emergency Provider Emergency Medicine; PCP Physician Assistant Medical
DX: J18.9 Pneumonia, unspecified organism (principal); Z20.822 Contact with and (suspected) exposure to COVID-19; M19.90 Unspecified osteoarthritis, unspecified site; E10.9 Type 1 diabetes mellitus without complications; I10 Essential (primary) hypertension; K21.9 Gastro-esophageal reflux disease without esophagitis; Z79.4 Long term (current) use of insulin
CPT/HCPCS: 36415; 70450; 71046; 72125; 80053; 85025; 87636; 93005; 96360; 99284; A9270; J7030

== ENCOUNTER 2023-06-01 23:31 | Inpatient (IN) | payer MEDICARE, SELFPAY ==
--- NOTE | ~2023-06-01 | MR_ITS ---
EXAMINATION: MR brain/brain stem wo/w con DATE: 06/08/2023 14:45 INDICATION: Encephalopathy. Slurred speech. TECHNIQUE: Magnetic resonance imaging (MRI) of the brain and brainstem was performed without and with 20 mL MultiHance intravenous contrast. COMPARISON: Brain MRI 06/04/2023, head CT 06/02/2023 FINDINGS: There is a small old infarct in left cerebellum. There is a small old infarct in left cauda te nucleus. There are scattered areas of nonspecific increased T2-weighted signal intensity in the ce rebral white matter, which is within normal limits for the patient's age. There is no intracranial he morrhage, acute infarction, or abnormal intracranial mass lesion. The ventricles are normal in size. There is mild mucosal thickening in the paranasal sinuses. There is a trace left mastoid effusion. Th ere are likely changes of ocular lens replacement surgeries. IMPRESSION: 1. 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 Reviewed, dictated and finalized at location E. E MACHINE OPERATOR
--- NOTE | ~2023-06-01 | XR_ITS ---
EXAMINATION: XR elbow RT 2V DATE: 06/07/2023 13:49 INDICATION: Right elbow swelling and limited range of motion TECHNIQUE: Anteroposterior, two oblique and lateral views of the right elbow were obtained. COMPARISON: None. FINDINGS: Alignment is normal. No fracture or joint effusion. 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 There is soft tissue swelling with some subcutaneous edema posterior to the elbow and proximal forearm. Pe ripheral IV at the volar aspect of the proximal right forearm. IMPRESSION: 1. 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 Reviewed, dictated and finalized at location A. CIPAL WEB DEVELOPER
--- NOTE | ~2023-06-01 | XR_ITS ---
EXAMINATION: XR lumbar puncture diagnostic DATE: 06/04/2023 12:47 INDICATION: Altered mental status TECHNIQUE: The procedure including the risks and benefits including spinal headache, cerebrospinal fl uid leak, bleeding, and infection were discussed with the patient's family who agreed to proceed. A timeout was performed to verify the patient's name, date of , and procedure to be performed. The skin overlying the L2-L3 level was prepped and draped in usual sterile fashion. Subcutaneous 1% lidocaine was used for local anesthesia. A 5 inch, 22 gauge spinal needle was advanced under fluoros copic guidance. The needle was removed and the entry site was cleaned and dressed. There were no imm ediate complications. A total of 2 fluoroscopic images and one crosstable lateral radiograph were obt ained. The amount of fluoroscopy time used during this procedure was 0.3 minutes. Total DAP was 19.11 8 Gycm^2. There were no immediate complications. FINDINGS: Real-time fluoroscopy demonstrates the needle at the L2-L3 level. Opening pressure was 20 c m water. (Normal range is variably defined as 6-20 cm water and up to 25 cm water in obese patients. Pressure >25 cm water is one of the modified Dandy criteria for idiopathic intracranial hypertension) . 12 mL of clear, colorless fluid was collected in 4 tubes. IMPRESSION: 1. Successful fluoro-guided lumbar puncture. Reviewed, dictated and finalized at location A. CTOR MEDIA
--- NOTE | ~2023-06-01 | XR_ITS ---
Portable chest x-ray Comparison: 06/02/2023 Clinical History: Shortness of breath Findings: There is mild nonspecific haziness left lung base. Right lung clear. Cardiomediastinal si lhouette is stable. Bones and soft tissues are unremarkable. Impression: Mild nonspecific haziness left lung base. Reviewed, dictated and finalized at [facility]. NG FACTORY WORKER Impression: Mild nonspecific haziness left lung base.
--- NOTE | ~2023-06-01 | CT_ITS ---
EXAMINATION: CTA chest PE abdomen pel DATE: 06/02/2023 02:48 INDICATION: Altered mental status and shortness of breath TECHNIQUE: Computed tomography angiography (CTA) of the chest was performed with 100 mL Omnipaque-350 intravenous contrast timed to evaluate the pulmonary arteries. Subsequent postcontrast images of the abdomen and pelvis are obtained. Coronal maximum intensity projection 3D-reconstructions were create d by the technologist. The dose-length product (DLP) was 3164.26 mGy-cm. Automated exposure control a nd iterative reconstruction technique were employed. COMPARISON: None. FINDINGS: CTA CHEST: Respiratory motion artifact limits the examination. The pulmonary arteries are well-opacif ied. No central pulmonary embolism is identified. There is smooth interlobular septal thickening of t he lungs. There are dependent airspace opacities in the lower lobes. No pleural effusion or pneumotho rax. The heart size is normal. There is mild mediastinal and hilar lymphadenopathy. There is severe t horacic spondylosis. There is an old fracture of the medial left clavicle. A sclerotic lesion of the left humeral head likely reflects an enchondroma. ABDOMEN/PELVIS CT: The liver, spleen, pancreas, gallbladder, and adrenal glands are normal. Streak an d motion artifact limits evaluation of the kidneys which appear grossly normal. There is calcified at herosclerosis of the aorta and many of the other arteries. No pathologically enlarged abdominal or pe lvic lymph nodes are identified. No free intraperitoneal gas or evidence of bowel obstruction. There is severe lumbar spondylosis. IMPRESSION: 1. No central pulmonary embolus identified, sensitivity limited by motion artifact. 2. Mild pulmonary edema. 3. Dependent airspace opacities of the lower lobes, consistent with atelectasis and pneumonia. 4. Mild mediastinal and hilar lymphadenopathy, likely reactive. 5. No acute abnormality of the abdomen or pelvis. Reviewed, dictated and finalized at location F. ING WAITER OR WAITRESS IMPRESSION: 1. No central pulmonary embolus identified, sensitivity limited by motion artif act. 2. Mild pulmonary edema. 3. Dependent airspace opacities of the lower lobes, consistent with atelectasis and pneumonia. 4. Mild mediastinal and hilar lymphadenopathy, likely reactive. 5. No acute abnormality of the abdomen or pelvis.
--- NOTE | ~2023-06-01 | CT_ITS ---
EXAMINATION: CT brain wo con INDICATION: Altered mental status COMPARISON: 04/19/2022 TECHNIQUE: Standard unenhanced head CT. The dose-length product (DLP) was 1362.00 mGy-cm. The mA was adjusted according to patient size. Iterative reconstruction technique was employed. FINDINGS: Motion artifact limits the examination. No acute intraparenchymal hemorrhage. No evidence o f mass lesion. No evidence of acute infarction. There is moderate periventricular and subcortical hyp odensity probably related to small vessel ischemic disease. There is moderate prominence of the sulci and ventricles related to cerebral atrophy. Intracranial calcified cerebral atherosclerosis is noted . No extra-axial collections. No mass effect or midline shift. The orbits and soft tissues are unrema rkable. The visualized sinuses and mastoid air cells are well aerated. IMPRESSION: 1. No acute intracranial abnormality, sensitivity limited by motion. 2. Age related findings. Reviewed, dictated and finalized at location F. CHEMIST
--- NOTE | ~2023-06-01 | MR_ITS ---
EXAMINATION: MR brain/brain stem wo con DATE: 06/04/2023 13:12 INDICATION: Altered mental status TECHNIQUE: Magnetic resonance imaging (MRI) of the brain and brainstem was performed without intraven ous contrast. Sequences included sagittal and axial T1-weighted SE, axial diffusion-weighted FS SE, a xial T2*-weighted GRE, axial T2-weighted FLAIR, and axial T2-weighted FSE. Apparent diffusion coeffic ient (ADC) maps were created. COMPARISON: Head CT dated 06/02/2023 FINDINGS: There are no areas of restricted diffusion to suggest acute infarction. No intracranial hemorrhage or abnormal intracranial mass lesion. There are scattered areas of nonspecific increased T2-weighted si gnal intensity in the cerebral white matter, predominantly involving the deep and periventricular whi te matter which is within normal limits for age and likely sequela of chronic small vessel ischemic d isease. There are no intraparenchymal signal abnormalities seen on the other pulse sequences. Symmetr ic prominence of the sulci and ventricles consistent with mild age-appropriate diffuse cerebral volum e loss. There are no abnormal extra-axial fluid collections. Flow voids are seen in the cerebral colin chris on the T2-weighted sequences consistent with their expected patency. Changes of bilateral intrao cular lens replacement. Visualized orbits and soft tissues are unremarkable. Mild mucosal thickening in the bilateral ethmoid sinuses. There is metallic magnetic field artifact associated with dental re storations along the maxilla. IMPRESSION: 1. Normal aging brain. No acute intracranial process. Reviewed, dictated and finalized at location A. D REPRESENTATIVE/HEALTH EDUCATION
--- NOTE | ~2023-06-01 | XR_ITS ---
EXAMINATION: XR chest PICC line Exam Date/Time: 06/09/2023 20:10 RAILWAY TRACTION LINE WORKER HISTORY: PICC LINE PLACEMENT Comparison: 06/04/2023. RESULT: Lines, tubes, and devices: In the initial image the PICC is looped in the proximal SVC with the tip directed superiorly, after repositioning the tip terminates in the proximal SVC. Lungs and pleura: Mild diffuse reticular opacities. Streaky subsegmental left basilar opacities. Mil d left costophrenic angle blunting Cardiomediastinal silhouette: Stable. Other: No acute osseous or upper abdominal finding. IMPRESSION: Right upper extremity PICC terminates in the proximal SVC. Mild interstitial edema. Subsegmental left basilar atelectasis/consolidation. Possible small left pleural effusion. Reviewed, dictated and finalized at location K. WAY TRACTION LINE WORKER IMPRESSION: Right upper extremity PICC terminates in the proximal SVC. Mild interstitial ed jamee. Subsegmental left basilar atelectasis/consolidation. Possible small left p leural effusion.
--- NOTE | ~2023-06-01 | XR_ITS ---
EXAMINATION: XR chest 1V portable INDICATION: Altered mental status TECHNIQUE: Portable AP chest at 0136 hours COMPARISON: 12/06/2022 FINDINGS: There is a mild diffuse interstitial pattern. No pleural effusion or pneumothorax. The card iomediastinal silhouette is normal. There are minimal airspace opacities of the lung bases. IMPRESSION: 1. Mild pulmonary edema. 2. Bibasilar airspace opacities, consistent with atelectasis versus pneumonia. Reviewed, dictated and finalized at location F. LEADER GLUING
--- NOTE | ~2023-06-01 | MR_ITS ---
EXAMINATION: MR cervical spine wo/w con DATE: 06/10/2023 11:12 INDICATION: Upper extremity weakness TECHNIQUE: Magnetic resonance imaging (MRI) of the cervical spine was performed 20 mL MultiHance intr avenous contrast. Sequences included sagittal T2-weighted FSE, sagittal T2 STIR FSE, sagittal T1-weig hted FSE, axial MERGE, and axial T2 propeller and postcontrast sagittal and axial T1 FSE. Phase array coil used due to body habitus. COMPARISON: C-spine 04/19/2022 FINDINGS: Craniocervical association and atlantoaxial joint are intact. Moderate degenerative change at the atlantodental interval and mild pannus formation about the dens. Cervical straightening. 2 mm anterolisthesis at C7-T1. Alignment otherwise intact. Vertebral body heights are maintained. Multilev el loss of disc height and hydration, severe at C5-6 and C6-7, with prominent anterior osteophytes at C4-5 through C6-7. Mild thinning of the cervical cord, with mild abnormal cord signal spanning C3-4 through C7. Mild diffuse central canal narrowing likely on a congenital basis. Normal cervicomedulary junction. The following disc levels are specifically discussed: C2-C3: The disc does not extend beyond the endplate margin. There is mild uncovertebral joint osteoar thritis. There is mild right and moderate left facet joint osteoarthritis. There is no neural foramin al stenosis. There is no central canal stenosis. C3-C4: Mild disc bulge. There is moderate uncovertebral joint osteoarthritis. There is mild facet pb nt osteoarthritis. There is no right and mild left neural foraminal stenosis. There is no central can al stenosis. C4-C5: Moderate diffuse bulge, with superimposed 3 mm right paracentral extrusion. There is moderate uncovertebral joint osteoarthritis. There is mild facet joint osteoarthritis. There is no neural fora priti stenosis. There is mild central canal stenosis. C5-C6: Moderate diffuse bulge. There is moderate uncovertebral joint osteoarthritis. There is mild fa cet joint osteoarthritis. There is mild right and no left neural foraminal stenosis. There is mild ce ntral canal stenosis. C6-C7: Mild diffuse bulge. There is mild uncovertebral joint osteoarthritis. There is mild facet join t osteoarthritis. There is no neural foraminal stenosis. There is no central canal stenosis. C7-T1: The disc does not extend beyond the endplate margin. There is mild uncovertebral joint osteoar thritis. There is moderate facet joint osteoarthritis. There is moderate bilateral neural foraminal s tenosis. There is no central canal stenosis. 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 3 mm right paracentral disc extrusion at C4-5. Grade 1 anterolisthesis at C7-T1. Multilevel moderate-severe degenerative disc disease. Multilevel facet arthropathy. Moderate bilateral neural foraminal narrowing at C7-T1. Reviewed, dictated and finalized at location K. 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 3 mm right paracentral disc extrusion at C4-5. Grade 1 anterolisthesis at C7-T1. Multilevel moderate-severe degenerative disc disease. Multilevel facet arthropa thy. Moderate bilateral neural foraminal narrowing at C7-T1.
--- NOTE | ~2023-06-01 | US_ITS ---
EXAMINATION: US venous doppler E DATE: 06/10/2023 16:17 INDICATION: edema . TECHNIQUE: Grayscale ultrasound images without and with compression and Doppler ultrasound images of the bilateral upper extremity veins were obtained. COMPARISON: None. FINDINGS: Right proximal brachial vein not evaluated as it was covered by bandage material. Noncompressible dil ated left axillary and basilic veins. The bilateral radial and ulnar veins were not evaluated. The visualized portions of the bilateral internal jugular vein, bilateral subclavian vein, right axil sajan vein, right mid and distal brachial veins, left brachial veins, right basilic vein, and bilatera l cephalic veins are patent. IMPRESSION: Acute DVT in the left axillary and basilic veins. Right proximal brachial vein covered by bandage material and not evaluated. The bilateral radial and ulnar veins were not evaluated. Results reported telephonically to Hema Lopez RN by Dr. Ordaz at 4:40 PM on 06/10/2023. Reviewed, dictated and finalized at location K. MOFORMING OPERATOR
[2023-06-01 23:39] VITALS: PULSE 101; RESP 20; TEMP 37.8; O2SAT 94
[2023-06-02] VITALS (15 sets, daily range): BP systolic 123–182; BP diastolic 68–85; PULSE 54–108; RESP 15–20; TEMP 36.4–36.6; O2SAT 92–100
--- NOTE | 2023-06-02 00:01 | ECG_ITS ---
Measurements Intervals [place] Rate: 110 P: 227 MD: 117 QRS: 33 QRSD: 142 T: 174 QT: 368 QTc: 498 Interpretive Statements SINUS OR ECTOPIC ATRIAL TACHYCARDIA BORDERLINE AV CONDUCTION DELAY LEFT BUNDLE BRANCH BLOCK ABNORMAL ECG COMPARED TO ECG 04/19/2022 15:15:01 SINUS TACHYCARDIA NOW PRESENT Electronically Signed On 06-02-2023 12:22:29 FORMULA WEIGHER by Angel Dawn D.O.
[2023-06-02] MEDS: HALOPERIDOL LACTATE 5 MG/ML VIAL IM ×3 (00:09→10:50)
[2023-06-02 00:11] LABS: Basophils Percent Auto 0.4 % (0.2-1.2); Eosinophils Percent Auto 0.2 % (0-4.4); Hematocrit 38.5 % (42.0-52.0); Hemoglobin 11.9 g/dL (14.0-18.0); Immature Granulocyte Absolute 0.04 K/mm3 (0.00-0.031); Immature Granulocyte Percent A 0.4 % (0-0.5); Lymphocytes Absolute Auto 1.13 K/mm3 (0.9-3.2); Lymphocytes Percent Auto 10.2 % (18.3-44.2); Mean Corpuscular HGB Conc 30.9 g/dl (32-36); Mean Corpuscular Hemoglobin 28.5 pg (26-34); Mean Corpuscular Volume 92.3 fl (80-100); Mean Platelet Volume 10.1 fl (7.4-10.4); Monocytes Absolute Auto 0.6 K/mm3 (0.1-0.6); Monocytes Percent Auto 5.5 % (2.6-8.5); Neutrophils Absolute Auto 9.2 K/mm3 (1.3-6.7); Neutrophils Percent Auto 83.3 % (45.5-73.1); Platelet Count Result 301 k/mm3 (150-375); Red Blood Count 4.17 M/mm3 (4.6-6.20); Red Cell Distribution Width 13.7 % (11.5-14.5); White Blood Count 11.1 K/mm3 (4.5-10.0)
[2023-06-02] MEDS: SODIUM CHLORIDE 0.9% IV 1,000 ML 999 ML IV CONT (00:11)
[2023-06-02] MEDS: LORazepam INJ (*CRX) 2 MG/ML VIAL 1 MG IM (00:12)
[2023-06-02] MEDS: LORazepam INJ (*CRX) 2 MG/ML VIAL 1 MG IV PUSH ×2 (00:12→10:49)
[2023-06-02 00:19] LABS: Appearance Urine Clear (Clear); Bacteria Urine None Seen /hpf; Bilirubin Urine Negative (Negative); Blood Urine Trace (Negative); Color Urine Yellow (Yellow); Glucose Urine UA 2+ mg/dL (Negative); Ketones Urine Trace mg/dL (Negative); Leukocyte Esterase Ur Negative LEU/UL (Negative); Nitrate Urine Negative (Negative); Non Pathogenic Casts 0-2; Protein Urine 3+ mg/dL (Negative); RBC Urine 0-2 /hpf (0-2); Specific Grav Ur 1.022 (1.001-1.035); Squamous Epithelial Cell Urine None seen /hpf (Few); WBC Urine 0-5 /hpf; pH Urine 7.5 (5.0-9.0)
[2023-06-02 00:22] LABS: Ethanol < 10 mg/dL (<10)
[2023-06-02 00:23] LABS: Alanine Aminotransferase 18 U/L (6-50); Albumin Level 3.8 g/dL (3.5-5.1); Alkaline Phosphatase 97 U/L (38-126); Anion Gap 7 mmol/L (8-16); Aspartate Amino Transferase 29 U/L (17-59); Bilirubin,Total 1.2 mg/dL (0.2-1.3); Blood Urea Nitrogen 27 mg/dL (9-20); Calcium 9.2 mg/dL (8.4-10.2); Carbon Dioxide 26 mmol/L (22-30); Chloride 104 mmol/L (98-107); Creatine Kinase 180 U/L (55-170); Estimated CRCL calculation 61 ml/min; Estimated Glomerular Filt Rate > 60; Glucose 241 mg/dL (65-110); Lipase 47 U/L (23-300); Magnesium 1.6 mg/dL (1.6-2.3); Phosphorus 3.6 mg/dL (2.5-4.5); Potassium 5.4 mmol/L (3.4-5.0); Sodium 137 mmol/L (137-145)
[2023-06-02 00:24] LABS: Lactic Acid Reflex 2.1 mmol/L (0.7-2.0)
[2023-06-02 00:28] LABS: Add Urine Microscopic? YES
[2023-06-02 00:32] LABS: Amphetamine Screen Urine Negative (Negative); Barbiturate Screen Urine Negative (Negative); Benzodiazepines Screen Urine Negative (Negative); Cannabinoid Screen Urine Negative (Negative); Cocaine Screen Urine Negative (Negative); Methadone Screen Urine Negative (Negative); Opiate Screen Urine Negative (Negative); Phencyclidine Screen Urine Negative (Negative)
[2023-06-02 00:34] LABS: Prothrombin Time 13.2 Seconds (11.1-14.7)
[2023-06-02 00:35] LABS: Partial Thromboplastin Time 46.8 SECONDS (22.3-36.8)
[2023-06-02 00:54] LABS: NT Pro B Type Natriuretic Pept 2950 pg/mL (19.9-100); Troponin I 0.052 ng/mL (0.000-0.034)
[2023-06-02 01:00] LABS: Influenza A QL RT-PCR Negative (Negative); Influenza B QL RT-PCR Negative (Negative); RSV RNA, RT-PCR Negative (Negative); SARS-CoV-2 RNA PCR Negative (Negative)
--- NOTE | 2023-06-02 02:32 | ECG_ITS ---
Measurements Intervals [place] Rate: 108 P: IN: 0 QRS: 28 QRSD: 141 T: 108 QT: 371 QTc: 498 Interpretive Statements SINUS OR ECTOPIC ATRIAL TACHYCARDIA BORDERLINE AV CONDUCTION DELAY LEFT BUNDLE BRANCH BLOCK ABNORMAL ECG COMPARED TO ECG 06/02/2023 01:05:44 NO SIGNIFICANT CHANGES Electronically Signed On 06-03-2023 11:03:11 SUPPLY CHAIN SPECIALIST by Angel Dawn D.O.
[2023-06-02 02:59] LABS: Reflex Lactic Acid Yes or No Add Lactic
[2023-06-02 03:20] LABS: Troponin I 0.142 ng/mL (0.000-0.034)
[2023-06-02] MEDS: FUROSEMIDE INJ 40 MG/4 ML VIAL IV PUSH (05:05)
[2023-06-02] MEDS: MIDAZOLAM HCL (*CRX) 2 MG/2 ML VIAL IV PUSH ×2 (05:15→05:27)
--- NOTE | 2023-06-02 05:35 | PC.NURSE ---
Since pt arrival pt has continued initial behaviors of thrashing, kicking. Pt is a&ox1 at this time. Pt unable to answer questions or follow commands. No improvements to pts mental status.
--- NOTE | 2023-06-02 05:39 | PC.NURSE ---
pt continues to pull of leads/cords. Pt placed on 2L nasal cannula at this time due to o2 sat of 90. pt 97% on 2L.
[2023-06-02] MEDS: cefTRIAXone 2 GM/NS 100 ML 2 GM/100 ML BAG IVPB ×2 (05:44→18:24)
--- NOTE | 2023-06-02 06:02 | ED.GENADULT ---
HPI - General Adult General Chief complaint: Altered Mental Status Stated complaint: ams Time Seen by Provider: 06/01/23 23:32 History of Present Illness HPI narrative: This is an 82-year-old male presenting for altered mental status. Per the patient's family it had some cough and congestion and then he developed acute alteration in mental status. He said that he was trying to climb the fireplace in the house and was not making any sense. They called EMS and was brought to the hospital. This time he is altered, continuously trying to get out of bed and irate with staff. Patient states he has a headache but denies any other symptoms. Patient's family says that in the past when he has had pneumonia he has become confused like this. Related Data Home Medications Medication Instructions Recorded Confirmed aspirin 325 mg tablet 325 mg PO DAILY 04/27/20 03/05/23 cholecalciferol (vitamin D3) 25 25 mcg PO DAILY 05/20/20 03/05/23 mcg (1,000 unit) capsule multivitamin 1 tablet PO DAILY 05/20/20 03/05/23 omega-3 fatty acids 1,000 mg 1,000 mg PO DAILY 05/20/20 03/05/23 capsule (Fish Oil Concentrate) cyanocobalamin (vitamin B-12) 2,000 mcg sublingual DAILY 01/23/23 03/05/23 1,000 mcg sublingual tablet insulin lispro 100 unit/mL See Rx Instructions .Route .COMPLEX 03/05/23 03/05/23 subcutaneous pen (Humalog KwikPen (U-100) Insulin) Allergies Allergy/AdvReac Type Severity Reaction Status Date / Time No Known Allergies Allergy Verified 03/05/23 09:09 [facility] Past Medical History Medical History Arthritis BMI 38.0-38.9,adult CAP (community acquired pneumonia) Charcot foot due to diabetes mellitus Decubitus ulcer of right buttock Diabetes Dyslipidemia Family history of skin cancer Fatigue GERD (gastroesophageal reflux disease) History of skin cancer Hypersomnia Hypertension Hypoxia LBBB (left bundle branch block) Obesity, Class III, BMI 40-49.9 (morbid obesity) Obstructive sleep apnea Peripheral neuropathy due to metabolic disorder Primary osteoarthritis of left hip Primary osteoarthritis of right hip Surgical History Surgical History History of facial surgery History of knee surgery History of repair of rotator cuff History of shoulder surgery History of total bilateral knee replacement Presence of left artificial knee joint Family History Family History Mother Family history of colonic diverticulitis Father Cerebrovascular accident Social History Social History Smoking packs per day: 3 Smoking cigarettes per day: 60.0 Years smoked: 3 Smoking pack-years: 9.00 Smoking status: Former smoker Tobacco type: cigarettes Second hand tobacco smoke exposure: No Alcohol intake: never Substance use: never Substance use type: does not use Lack of Transportation: No Lack of Food: Never True Current Housing: I Have Housing Concerned About Future Housing: No Difficulty Paying Gas/Electric Bills: No Difficulty Paying for Meds: No Currently Unemployed: No Education: High School Diploma/GED Difficulty w/ Childcare or Family Care: No Living arrangements: with family Occupation/Education: occupation Gender identity (if verbalized by the patient): Male Sexual Orientation (if Verbalized by the Patient): Straight or Heterosexual Spiritual care concerns: No Exam Narrative: APPEARANCE: A&O x1, requires constant redirection, Head: atraumatic. EYES: EOMI, NOSE: Atraumatic NECK: Trachea midline, supple RESPIRATORY: Scattered crackles CARDIOVASCULAR: tachycardic, no pitting edema ABDOMINAL: Non-distended, soft no guarding or rebound MUSCULOSKELETAl: No obvious deformities NEURO: Alert. Moving 4/4 extremities SKIN:: Warm, dry. Normal color PSYCHIATRIC:
[2023-06-02] MEDS: AMPICILLIN 2 GM/NS 100 ML 2 GM/100 ML BAG IVPB ×3 (06:04→23:22)
[2023-06-02 06:20] LABS: Lactic Acid 1.1 mmol/L (0.7-2.0)
[2023-06-02] MEDS: VANCOMYCIN 1,250 MG/NS 250 ML 1,250 MG/250 ML BAG 166.67 MG IVPB ×2 (06:29→08:23)
[2023-06-02] MEDS: DOXYCYCLINE 100 MG/NS 100 ML 100 MG/100 ML BAG IVPB ×2 (06:29→17:20)
[2023-06-02 07:53] LABS: CRP < 0.5 mg/dL (<1.0)
[2023-06-02 08:00] LABS: Procalcitonin 0.1 ng/mL
[2023-06-02 08:39] LABS: MRSA (PCR) NOT DETECTED (NOT DETECTE)
--- NOTE | 2023-06-02 10:29 | PC.NURSE ---
Pt refusing to keep on O2 and monitors. When placed on pt he keeps taking them off and tries to grab bedrail and nurses. EDP and electrical discharge machine operator made aware.
--- NOTE | 2023-06-02 12:44 | ADMGEN ---
This patient, Sae Wing, was admitted to IMU Room 205-02. Patient/family oriented to hospital policies and general routines including ID bracelet, bed and alarms, visiting hours, pain management, procedures, bathroom and other care routines, personal items, smoking policy, room service/diet, and visiting hours. Information on how to activate the Rapid Response Team has been discussed. Patient/Family are encouraged to report perceived risks to care and to ask questions if they do not understand what they are told or what they should do.
--- NOTE | 2023-06-02 13:08 | PM.IMHP ---
H&P: HPI History of Present Illness Date/Time: 06/02/23 13:05 Chief Complaint: Altered mental status. Narrative: This is an 82-year-old male with combined systolic and diastolic congestive heart failure, hypertension, hyperlipidemia, insulin-dependent type 2 diabetes mellitus, chronic obstructive pulmonary disease, untreated obstructive sleep apnea, and benign prostatic hyperplasia who presented to the emergency department via EMS from home for evaluation of altered mental status. The patient is not able to provide much in the way of history given his clinical condition (confused and combative on arrival, now asleep in somnolent after receiving medication) and thus a majority the following is obtained via a review of his EMR as well as information provided by his who is at bedside. Yesterday morning he complained of chills but had no other specific complaints. He ate breakfast and went to rest thereafter as he was once again feeling chilled. Later in the afternoon he mentioned a back ache briefly. As the day progressed he became increasingly more confused. For instance he went outside without his cane or a jacket in order to go to the bathroom. He was attempting to climb up the kitchen cabinets and up the fireplace. could not redirect him and he was not making sense when questioned. He had a similar episode of confusion when he had pneumonia previously. has not noticed any symptoms to suggest pneumonia however. He has not had any falls or head trauma. denies sick contacts. No recent travel or change in medications. He does not consume significant quantities of alcohol and she denies that he uses illicit substances. No open wounds to the 's knowledge. In the ED: Temperature was 100.1? F on arrival. Heart rate and blood pressures have been stable. Labs were significant for a WBC count of 11.1, hemoglobin 11.9, sodium 137, potassium 5.4, BUN 27, creatinine 1.10, glucose 241, lactic acid 2.1, total CK 180, proBNP 2950, troponin 0.052, CRP less than 0.5, procalcitonin 0.1. Urine was positive for 3+ protein, 2+ glucose, trace ketones. He tested negative for influenza, RSV, and COVID. Ethyl alcohol was undetected. Urine drug screen was negative. Brain CT showed no acute findings though somewhat limited due to motion. Chest x-ray showed mild pulmonary edema bibasilar airspace opacities consistent with atelectasis versus pneumonia. CT of the chest, abdomen, and pelvis showed no evidence of central pulmonary embolus though sensitivity limited by motion artifact, mild pulmonary edema, and dependent airspace opacities consistent with atelectasis and pneumonia. He received 1 L normal saline. Over the course of multiple hours in the ER he received several doses of lorazepam, haloperidol, and midazolam for agitation and combativeness. He also received IV furosemide 40 mg x 1, 2 g ceftriaxone, 2 g ampicillin, 100 mg doxycycline, and 1250 mg vancomycin. He is being admitted in this setting for further workup of altered mental status. Lumbar puncture has been ordered but not yet done. Review of Systems Review of Systems: Unable to obtain given clinical condition. [facility] Past Medical History Medical History (Updated 06/02/23 @ 13:14 by Kary Coughlin PA-C) Arthritis Charcot foot due to diabetes mellitus Chronic obstructive pulmonary disease Combined systolic and diastolic congestive heart failure Echo in April 2020 showed moderate moderately reduced LV systolic function with an EF of 40 to 45% and grade 1 diastolic dysfunction. Dyslipidemia Gastroesophageal reflux disease History of skin cancer Hypertension Insulin dependent type 2 diabetes mellitus Left bundle branch block Obstructive sleep apnea Does not use CPAP. Transient ischemic attack Surgical History Surgical History (Updated 06/02/23 @ 13:12 by Kary Coughlin PA-C) History of bilateral knee arthroplasty History of facial surgery History of knee surgery History of repa
[2023-06-02 14:13] LABS: Ammonia < 9 umol/L (9-30)
[2023-06-02 14:15] LABS: Anion Gap 7 mmol/L (8-16); Blood Urea Nitrogen 22 mg/dL (9-20); Calcium 8.9 mg/dL (8.4-10.2); Carbon Dioxide 26 mmol/L (22-30); Chloride 107 mmol/L (98-107); Creatine Kinase 428 U/L (55-170); Estimated CRCL calculation 56 ml/min; Estimated Glomerular Filt Rate 58; Glucose 162 mg/dL (65-110); Potassium 4.2 mmol/L (3.4-5.0); Sodium 140 mmol/L (137-145)
[2023-06-02 14:26] LABS: Erythrocyte Sedimentation Rate 66 mm/hr (0-20)
[2023-06-02 16:41] LABS: Glucose Point of Care 151 mg/dl (65-105)
[2023-06-02 20:11] LABS: Glucose Point of Care 146 mg/dl (65-105)
[2023-06-02] MEDS: ACYCLOVIR SODIUM IVPB 800 MG in DEXTROSE 5% IN WATER 250 ML 266 MG IVPB (22:05)
[2023-06-03] VITALS (17 sets, daily range): BP systolic 131–181; BP diastolic 51–92; PULSE 62–91; RESP 16–24; TEMP 36.2–36.8; O2SAT 91–98
[2023-06-03] MEDS: VANCOMYCIN 1,500 MG/NS 500 ML 1,500 MG/500 ML BAG 250 MG IVPB ×2 (00:23→18:50)
[2023-06-03] MEDS: LORazepam INJ (*CRX) 2 MG/ML VIAL 1 MG IV PUSH (02:41)
[2023-06-03] MEDS: diphenhydrAMINE HCl INJ 50 MG/ML VIAL IV PUSH (02:41)
[2023-06-03 04:03] LABS: Basophils Absolute Auto 0.1 K/mm3 (0.0-0.1); Basophils Percent Auto 0.5 % (0.2-1.2); Eosinophils Absolute Auto 0.3 K/mm3 (0-0.3); Eosinophils Percent Auto 2.2 % (0-4.4); Hematocrit 37.6 % (42.0-52.0); Hemoglobin 11.7 g/dL (14.0-18.0); Immature Granulocyte Absolute 0.04 K/mm3 (0.00-0.031); Immature Granulocyte Percent A 0.3 % (0-0.5); Lymphocytes Percent Auto 12.8 % (18.3-44.2); Mean Corpuscular HGB Conc 31.1 g/dl (32-36); Mean Corpuscular Volume 93.1 fl (80-100); Mean Platelet Volume 9.8 fl (7.4-10.4); Monocytes Absolute Auto 1.1 K/mm3 (0.1-0.6); Monocytes Percent Auto 9.5 % (2.6-8.5); Neutrophils Absolute Auto 8.8 K/mm3 (1.3-6.7); Neutrophils Percent Auto 74.7 % (45.5-73.1); Platelet Count Result 259 k/mm3 (150-375); Red Blood Count 4.04 M/mm3 (4.6-6.20); Red Cell Distribution Width 13.7 % (11.5-14.5); White Blood Count 11.8 K/mm3 (4.5-10.0)
[2023-06-03 04:20] LABS: Alanine Aminotransferase 17 U/L (6-50); Albumin Level 3.4 g/dL (3.5-5.1); Alkaline Phosphatase 97 U/L (38-126); Anion Gap 8 mmol/L (8-16); Aspartate Amino Transferase 36 U/L (17-59); Bilirubin,Total 1.7 mg/dL (0.2-1.3); Blood Urea Nitrogen 20 mg/dL (9-20); Calcium 8.7 mg/dL (8.4-10.2); Carbon Dioxide 24 mmol/L (22-30); Chloride 108 mmol/L (98-107); Creatine Kinase 463 U/L (55-170); Estimated CRCL calculation 61 ml/min; Estimated Glomerular Filt Rate > 60; Glucose 170 mg/dL (65-110); Magnesium 1.6 mg/dL (1.6-2.3); Potassium 3.7 mmol/L (3.4-5.0); Sodium 140 mmol/L (137-145)
[2023-06-03] MEDS: AMPICILLIN 2 GM/NS 100 ML 2 GM/100 ML BAG IVPB ×5 (04:30→20:54)
[2023-06-03] MEDS: ACYCLOVIR SODIUM IVPB 800 MG in DEXTROSE 5% IN WATER 250 ML 266 MG IVPB ×3 (05:07→21:51)
[2023-06-03] MEDS: cefTRIAXone 2 GM/NS 100 ML 2 GM/100 ML BAG IVPB ×2 (05:07→15:20)
[2023-06-03] MEDS: DOXYCYCLINE 100 MG/NS 100 ML 100 MG/100 ML BAG IVPB ×2 (06:46→17:30)
[2023-06-03 08:21] LABS: Glucose Point of Care 198 mg/dl (65-105)
--- NOTE | 2023-06-03 09:24 | PC.NURSE ---
BG 198, scheduled for 50 units of Lantus which is home dose. Pt currently NPO with AMS. Detailed message left with Dr. Hurley requesting review of insulin orders considering NPO status.
--- NOTE | 2023-06-03 09:37 | PM.IMPN ---
Progress Note: A&P Assessment and Plan (1) Altered mental status: Code(s): R41.82 - Altered mental status, unspecified Status: Acute Assessment and Plan: Unsure of etiology, continue antibiotics, follow-up blood cultures Procalcitonin 0.1 Started on vancomycin, doxycycline, ampicillin, ceftriaxone, and valacyclovir 06/02 for infection of unknown etiology, possible meningitis due to altered mental status Symptoms continue to worsen, will check MRI and LP Neuro consult placed and pending Haldol as needed, avoid sedating agents (2) Pneumonia: Code(s): J18.9 - Pneumonia, unspecified organism Status: Acute Assessment and Plan: Pneumonia versus atelectasis, continue antibiotics, monitor response (3) Elevated troponin: Code(s): R79.89 - Other specified abnormal findings of blood chemistry Status: Acute Assessment and Plan: Troponin continues to elevate, consult Cardiology pending ECG showed atrial flutter with RVR, left bundle branch block (4) Combined systolic and diastolic congestive heart failure: Code(s): I50.40 - Unspecified combined systolic (congestive) and diastolic (congestive) heart failure Status: Acute Assessment and Plan: Appears euvolemic (5) Insulin dependent type 2 diabetes mellitus: Code(s): E11.9 - Type 2 diabetes mellitus without complications; Z79.4 - USP (current) use of insulin Status: Acute Assessment and Plan: Accu-Cheks, sliding scale insulin, check A1c Decrease dose lantus while npo, usually on 50 units at home, will give 30 units here and monitor Blood glucose reviewed 06/03 (6) Hypertension: Qualifiers: Hypertension type: unspecified Qualified Code(s): I10 - Essential (primary) hypertension Code(s): I10 - Essential (primary) hypertension Status: Chronic Assessment and Plan: Blood pressure reviewed 06/03 Plan DVT prophylaxis with SCDs GI prophylaxis not indicated Code status full code Subjective Date/time seen: 06/03/23 09:37 Interval history: 82-year-old male with history of heart failure, hypertension, hyperlipidemia, diabetes, COPD is presenting with altered mental status. Noted agitation overnight, given benadryl + ativan x 1, now more sedated today. No chest pain or shortness of breath. No nausea, vomiting or diarrhea. No fevers or chills. Review of Systems Review of Systems: ROS unobtainable: Yes unobtainable due to mental status Exam Narrative: General: No acute distress, somnolent HEENT: Atraumatic, normocephalic, mucous membranes moist CV: Regular rate and rhythm, S1, S2 Lungs: Diminished throughout, no wheeze Abdomen: Soft, nontender, nondistended Extremities: Normal to inspection Skin: No rashes noted, no lesions or wounds seen Psych: Unable to assess Objective Data Vital Signs Vital Signs: Vital Signs - 24 hr 06/02/23 10:55 06/02/23 14:00 06/02/23 16:00 Temperature 97.6 F Pulse Rate 78 85 54 L Respiratory Rate 20 16 Blood Pressure 139/68 123/72 Pulse Oximetry 94 96 Oxygen Delivery 06/02/23 16:00 06/02/23 16:00 06/02/23 18:00 Temperature Pulse Rate 66 66 88 Respiratory Rate 16 Blood Pressure Pulse Oximetry 96 Oxygen Delivery Room Air 06/02/23 19:22 06/02/23 20:00 06/02/23 23:41 Temperature 97.9 F 97.5 F L Pulse Rate 80 85 Respiratory Rate 16 16 Blood Pressure 182/81 H 171/68 H Pulse Oximetry 100 98 Oxygen Delivery Room Air 06/03/23 00:00 06/02/23 20:00 06/02/23 22:00 Temperature Pulse Rate 85 85 Respiratory Rate Blood Pressure Pulse Oximetry Oxygen Delivery Room Air 06/03/23 00:00 06/03/23 02:00 06/03/23 04:00 Temperature Pulse Rate 80 77 81 Respiratory Rate Blood Pressure Pulse Oximetry Oxygen Delivery 06/03/23 04:23 06/03/23 04:00 06/03/23 06:00 Temperature 97.2 F L Pulse Rate 85 80 Re
--- NOTE | 2023-06-03 10:32 | PC.NURSE ---
Dr. Hurley made aware that AM meds were held due to pts inability to swallow.
--- NOTE | 2023-06-03 11:41 | PM.CNCAR ---
Assessment and Plan Assessment and plan (1) Elevated troponin: Code(s): R79.89 - Other specified abnormal findings of blood chemistry Status: Acute Assessment and Plan: Continues to rise up at 1.57. Probably related to infection/confusion. Doubt ACS given no symptoms to suggest it. Check troponin in AM. Obtain echo tomorrow. (2) Pneumonia: Code(s): J18.9 - Pneumonia, unspecified organism Status: Acute Assessment and Plan: On antibitotics as per hospitalist. (3) Insulin dependent type 2 diabetes mellitus: Code(s): E11.9 - Type 2 diabetes mellitus without complications; Z79.4 - correction (current) use of insulin Status: Acute Assessment and Plan: Managed as per hospitalits. (4) Hypertension: Qualifiers: Hypertension type: unspecified Qualified Code(s): I10 - Essential (primary) hypertension Code(s): I10 - Essential (primary) hypertension Status: Chronic Assessment and Plan: High as home PO meds are on hold. Start Enalapril 1.25 mg IV every 6 hrs with parameters. (5) Dyslipidemia: Code(s): E78.5 - Hyperlipidemia, unspecified Status: Acute Assessment and Plan: Normally on Atorvastatin. (6) Altered mental status: Code(s): R41.82 - Altered mental status, unspecified Status: Acute Assessment and Plan: Workup underway. Neurology was consulted. Plan on doing LP and MRI brain. (7) Left bundle branch block: Code(s): I44.7 - Left bundle-branch block, unspecified Status: Acute Assessment and Plan: Chronic. History of Present Illness History of Present Illness Consult date/time: 06/03/23 11:41 Reason For Visit: AMS Narrative: 82 yr old man who I saw one time May 2020 presents to ER with mental status changes. He has a history of DM, hypertension, dyslipidemia, SOLO not on treatment, LBBB, obesity, covid infection on 04/27/20. Step-son is at bedside providing history as patient is very somnolent, eyes open to command but shuts immediately. Per chart and his step son he was confused and he was brought in to ER by EMS. He had chills at home. It was found he has pneumonia and elevated troponin. He did not have any chest pains. He had pneumonia in past and had confusion with it also. He can walk about 1 block before he has ELENA.? Denies chest pain. In pas he had sleep study that showed severe SOLO.? He was unhappy that he has to go back for a titration study. 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 atherosclerotic aorta; mild anterior right hemidiaphragm elevation of uncertain etiology.) - 10/27/2014 Sleep Study (Severe SOLO.) - 11/03/2015 Review of Systems Review of Systems: ROS unobtainable: Yes unobtainable due to mental status Constitutional: Constitutional: Reports as per HPI, Reports chills and Denies fever(s) Cardiovascular: Cardiovascular: Reports as per HPI and Denies chest pain Respiratory: Respiratory: Reports as per HPI and Denies dyspnea Gastrointestinal: Gastrointestinal: Reports as per HPI and Denies abdominal pain Genitourinary: Genitourinary: Reports as per HPI and Denies dysuria Musculoskeletal: Musculoskeletal: Reports as per HPI Neurologic: Reports as per HPI and Denies syncope [facility] Past Medical History Medical History (Updated 06/03/23 @ 11:57 by Angel Dwan DO) Arthritis Charcot foot due to diabetes mellitus Chronic obstructive pulmonary disease Combined systolic and diastolic congestive heart failure Echo in April 2020 showed mod
[2023-06-03] MEDS: INSULIN GLARGINE (*BKC) 100 UNITS/ML 30 UNITS SUB-Q (11:50)
[2023-06-03 11:55] LABS: Glucose Point of Care 175 mg/dl (65-105)
[2023-06-03] MEDS: ENALAPRILAT 1.25 MG/ML VIAL IV PUSH ×2 (12:46→17:30)
--- NOTE | 2023-06-03 15:10 | PC.NURSE ---
Felicita Germaine, daughter in law, is ok to receive updates per Tobin Herron.
[2023-06-03 18:09] LABS: Vancomycin Trough 17.1 ug/mL (10.0-20.0)
[2023-06-03 20:27] LABS: Glucose Point of Care 175 mg/dl (65-105)
[2023-06-04] VITALS (18 sets, daily range): BP systolic 142–175; BP diastolic 51–92; PULSE 69–104; RESP 16–22; TEMP 36.2–37.5; O2SAT 91–98
[2023-06-04] MEDS: AMPICILLIN 2 GM/NS 100 ML 2 GM/100 ML BAG IVPB ×5 (00:14→20:21)
[2023-06-04] MEDS: ENALAPRILAT 1.25 MG/ML VIAL IV PUSH ×2 (00:14→05:45)
[2023-06-04] MEDS: cefTRIAXone 2 GM/NS 100 ML 2 GM/100 ML BAG IVPB ×2 (03:37→16:44)
[2023-06-04 04:43] LABS: Basophils Absolute Auto 0.1 K/mm3 (0.0-0.1); Basophils Percent Auto 0.4 % (0.2-1.2); Hematocrit 35.7 % (42.0-52.0); Hemoglobin 11.2 g/dL (14.0-18.0); Immature Granulocyte Absolute 0.07 K/mm3 (0.00-0.031); Immature Granulocyte Percent A 0.5 % (0-0.5); Lymphocytes Absolute Auto 0.88 K/mm3 (0.9-3.2); Lymphocytes Percent Auto 6.7 % (18.3-44.2); Mean Corpuscular HGB Conc 31.4 g/dl (32-36); Mean Corpuscular Hemoglobin 29.1 pg (26-34); Mean Corpuscular Volume 92.7 fl (80-100); Monocytes Absolute Auto 1.4 K/mm3 (0.1-0.6); Monocytes Percent Auto 10.3 % (2.6-8.5); Neutrophils Absolute Auto 10.7 K/mm3 (1.3-6.7); Neutrophils Percent Auto 82.1 % (45.5-73.1); Platelet Count Result 259 k/mm3 (150-375); Red Blood Count 3.85 M/mm3 (4.6-6.20); Red Cell Distribution Width 13.8 % (11.5-14.5); White Blood Count 13.1 K/mm3 (4.5-10.0)
[2023-06-04 04:55] LABS: Alanine Aminotransferase 15 U/L (6-50); Albumin Level 3.4 g/dL (3.5-5.1); Alkaline Phosphatase 87 U/L (38-126); Anion Gap 11 mmol/L (8-16); Aspartate Amino Transferase 26 U/L (17-59); Bilirubin,Total 1.5 mg/dL (0.2-1.3); Blood Urea Nitrogen 26 mg/dL (9-20); Calcium 8.3 mg/dL (8.4-10.2); Carbon Dioxide 21 mmol/L (22-30); Chloride 109 mmol/L (98-107); Estimated CRCL calculation 47 ml/min; Estimated Glomerular Filt Rate 45; Glucose 212 mg/dL (65-110); Potassium 3.7 mmol/L (3.4-5.0); Sodium 141 mmol/L (137-145)
[2023-06-04] MEDS: DOXYCYCLINE 100 MG/NS 100 ML 100 MG/100 ML BAG IVPB ×2 (05:11→17:51)
[2023-06-04] MEDS: ACYCLOVIR SODIUM IVPB 800 MG in DEXTROSE 5% IN WATER 250 ML 266 MG IVPB ×3 (06:12→22:15)
--- NOTE | 2023-06-04 07:23 | PM.PNCARD ---
Progress Note: A&P Assessment and Plan (1) Elevated troponin: Code(s): R79.89 - Other specified abnormal findings of blood chemistry Status: Acute Assessment and Plan: Peaked at 1.57. Probably related to infection/confusion. Doubt ACS given no symptoms to suggest it. Obtain echo today. (2) Pneumonia: Code(s): J18.9 - Pneumonia, unspecified organism Status: Acute Assessment and Plan: On antibitotics as per hospitalist. (3) Insulin dependent type 2 diabetes mellitus: Code(s): E11.9 - Type 2 diabetes mellitus without complications; Z79.4 - senior care (current) use of insulin Status: Acute Assessment and Plan: Managed as per hospitalits. (4) Hypertension: Qualifiers: Hypertension type: unspecified Qualified Code(s): I10 - Essential (primary) hypertension Code(s): I10 - Essential (primary) hypertension Status: Chronic Assessment and Plan: High as home PO meds are on hold. Increase Enalapril 2.5 mg IV every 6 hrs with parameters. (5) Dyslipidemia: Code(s): E78.5 - Hyperlipidemia, unspecified Status: Acute Assessment and Plan: Normally on Atorvastatin. (6) Altered mental status: Code(s): R41.82 - Altered mental status, unspecified Status: Acute Assessment and Plan: Workup underway. Neurology was consulted. Plan on doing LP and MRI brain. (7) Left bundle branch block: Code(s): I44.7 - Left bundle-branch block, unspecified Status: Acute Assessment and Plan: Chronic. Subjective Date/time seen: 06/04/23 07:23 Interval history: Somnolent, but opens eyes and answers appropriately. No chest pain or sob. Exam Const: General: cooperative, comfortable, obese and other (somnolent) Nutritional Appearance: obese Resp: Auscultation: clear to auscultation bilaterally, no crackles, no rales, no rhonchi and no wheezes Cardio: Rate: regular rate Rhythm: regular rhythm Heart sounds: no murmurs Peripheral pulses: dorsalis pedis present Extrem: Right lower extremity: no edema Left lower extremity: no edema Objective Data Vital Signs Vital Signs: Vital Signs - 24 hr 06/03/23 08:00 06/03/23 08:00 06/03/23 10:00 Temperature 97.2 F L Pulse Rate 62 80 78 Respiratory Rate 24 H Blood Pressure 146/92 H Pulse Oximetry 97 Oxygen Delivery 06/03/23 08:00 06/03/23 11:50 06/03/23 14:45 Temperature 98.1 F Pulse Rate 80 Respiratory Rate 20 Blood Pressure 175/75 H 147/68 H Pulse Oximetry 94 Oxygen Delivery Room Air 06/03/23 12:00 06/03/23 14:00 06/03/23 16:00 Temperature Pulse Rate 80 80 80 Respiratory Rate Blood Pressure Pulse Oximetry Oxygen Delivery 06/03/23 12:00 06/03/23 16:00 06/03/23 16:00 Temperature 98.2 F Pulse Rate 62 Respiratory Rate 24 H Blood Pressure 131/54 L Pulse Oximetry 92 Oxygen Delivery Room Air Room Air 06/03/23 18:00 06/03/23 20:00 06/03/23 20:06 Temperature 97.6 F Pulse Rate 91 91 81 Respiratory Rate 24 H 22 H Blood Pressure 150/51 H Pulse Oximetry 92 93 Oxygen Delivery Room Air 06/03/23 20:00 06/03/23 22:00 06/03/23 23:47 Temperature 98.2 F Pulse Rate 87 79 87 Respiratory Rate 22 H Blood Pressure 181/78 H Pulse Oximetry 91 Oxygen Delivery 06/04/23 00:00 06/04/23 00:00 06/04/23 02:00 Temperature Pulse Rate 87 82 91 Respiratory Rate 22 H Blood Pressure Pulse Oximetry 91 Oxygen Delivery Room Air 06/04/23 03:53 06/04/23 04:00 06/04/23 06:07 Temperature Pulse Rate 91 82 81 Respiratory Rate 22 H Blood Pressure Pulse Oximetry 91 Oxygen Delivery Room Air 06/04/23 05:45 Temperature 97.8 F Pulse Rate 78 Respiratory Rate 22 H Blood Pressure 150/51 H Pulse Oximetry 96 Oxygen Delivery Intake/Output Intake/Output: Intake & Output 06/01/23 06/02/23 06/03/23 06/04/23 23:59 23:59 23:59 23:59 Intake Total
[2023-06-04 08:31] LABS: Glucose Point of Care 219 mg/dl (65-105)
[2023-06-04] MEDS: INSULIN ASPART (*BKC) 100 UNITS/ML SUB-Q (08:39)
[2023-06-04] MEDS: INSULIN GLARGINE (*BKC) 100 UNITS/ML 30 UNITS SUB-Q (08:39)
--- NOTE | 2023-06-04 09:02 | WPDNEURCNPN ---
Assessment and Plan Assessment and plan (1) Altered mental status: Code(s): R41.82 - Altered mental status, unspecified Status: Acute (2) Encephalopathy due to infection: Code(s): G93.49 - Other encephalopathy; B99.9 - Unspecified infectious disease Status: Acute Plan Sae Wing is a 82 year old male with a history of diabetes, hypertension, CHF, COPD, hyperlipidemia presenting for altered mental status. Started on meningitic antibiotics and acylcovir, but mental status has not improved significantly. WBC is uptrending as well. Source of infection is not clear, but meningitis/encephalitis is a concern. Preliminary blood cultures are pending. - Agree with MRI brain with and without contrast - Agree with LP with CSF studies -- ordered Consult date: 06/04/23 Reason for consult: Altered mental status HPI: Sae Wing is a 82 year old male with a history of diabetes, hypertension, CHF, COPD, hyperlipidemia presenting for altered mental status. On day before presentation patient was complaining of chills. Patient seemed to be increasingly more confused throughout the day -- went outside without his cane or jacket. He was also attempting to climb up the kitchen cabinets and the fireplace. was not able to redirect him. Patient previously has had similar behavior with pneumonia in the past. Patient was taken to [place] ED for further evaluation. In the ED his temperature was 100.1 on arrival. His labs were significant for WBC of 11.1. CRP was wnl. UA not suggestive of infection. URI panel was negative. Alcohol and UDS was negative. CT head did not show any acute findings. CXR read as bibasilar airspace opacities suggestive of atelectasis vs pneumonia. CT chest abdomen pelvis did not show any infectious source. He was quite agitated in the ED so he received several doses of Ativa, Haldol, and Versed. He was started on Rocephin, ampicillin, vancomycin, and most recently acyclovir. LP was attempted but unsuccessful in the ED due to patient's body habitus. Since admission, it seems that there has not been any significant improvement in patient's mental status. Preliminary blood cultures have been negative so far. WBC is uptrending, with it being 13 today. Review of Systems Review of Systems: ROS unobtainable: Yes unobtainable due to mental status [facility] Past Medical History Medical History Arthritis Charcot foot due to diabetes mellitus Chronic obstructive pulmonary disease Combined systolic and diastolic congestive heart failure Echo in April 2020 showed moderate moderately reduced LV systolic function with an EF of 40 to 45% and grade 1 diastolic dysfunction. Dyslipidemia Gastroesophageal reflux disease History of skin cancer Hypertension Insulin dependent type 2 diabetes mellitus Left bundle branch block Obstructive sleep apnea Does not use CPAP. Transient ischemic attack Surgical History Surgical History History of bilateral knee arthroplasty History of facial surgery History of knee surgery History of repair of rotator cuff History of shoulder surgery Family History Family History Mother Family history of colonic diverticulitis Father Cerebrovascular accident Social History Social History Social History: Surrogate medical decision maker: Claudetteainsley Wing, spouse. Code status: Full code. Smoking packs per day: 3 Smoking cigarettes per day: 60.0 Years smoked: 3 Smoking pack-years: 9.00 Smoking status: Former smoker Tobacco type: cigarettes Second hand tobacco smoke exposure: No Alcohol intake: never Substance use: never Substance use type: does not use Lack of Transportation: No Lack of Food: Never True Current Housing: I Have Housing Concerned About Futur
--- NOTE | 2023-06-04 09:46 | PM.IMPN ---
Progress Note: A&P Assessment and Plan (1) Altered mental status: Code(s): R41.82 - Altered mental status, unspecified Status: Acute Assessment and Plan: Unsure of etiology, continue antibiotics, follow-up blood cultures Procalcitonin 0.1 Started on vancomycin, doxycycline, ampicillin, ceftriaxone, and valacyclovir 06/02 for infection of unknown etiology, possible meningitis due to altered mental status Symptoms continue to worsen, will check MRI and LP per neuro recs Neuro consult placed and appreciated Haldol as needed, avoid sedating agents (2) Pneumonia: Code(s): J18.9 - Pneumonia, unspecified organism Status: Acute Assessment and Plan: Pneumonia versus atelectasis, continue antibiotics, monitor response (3) Elevated troponin: Code(s): R79.89 - Other specified abnormal findings of blood chemistry Status: Acute Assessment and Plan: Troponin continues to elevate, consult Cardiology appreciated ECG showed atrial flutter with RVR, left bundle branch block Echo pending (4) Combined systolic and diastolic congestive heart failure: Code(s): I50.40 - Unspecified combined systolic (congestive) and diastolic (congestive) heart failure Status: Acute Assessment and Plan: Appears euvolemic (5) Insulin dependent type 2 diabetes mellitus: Code(s): E11.9 - Type 2 diabetes mellitus without complications; Z79.4 - detention (current) use of insulin Status: Acute Assessment and Plan: Accu-Cheks, sliding scale insulin, check A1c Decrease dose lantus while npo, usually on 50 units at home, will give 30 units here and monitor Blood glucose reviewed 06/04 (6) Hypertension: Qualifiers: Hypertension type: unspecified Qualified Code(s): I10 - Essential (primary) hypertension Code(s): I10 - Essential (primary) hypertension Status: Chronic Assessment and Plan: Blood pressure reviewed 06/04 Plan DVT prophylaxis with SCDs GI prophylaxis not indicated Code status full code Subjective Date/time seen: 06/04/23 09:46 Interval history: 82-year-old male with history of heart failure, hypertension, hyperlipidemia, diabetes, COPD is presenting with altered mental status. 06/03: Noted agitation overnight, given benadryl + ativan x 1, now more sedated today. No chest pain or shortness of breath. No nausea, vomiting or diarrhea. No fevers or chills. 06/04: no more sedating meds, no more benadryl or ativan, haldol as needed, not needed yet. no events, family in the room and state patient is much more alert today and closer to baseline, still slightly confused. no fevers. Review of Systems Review of Systems: ROS unobtainable: Yes unobtainable due to mental status Exam Narrative: General: No acute distress, sleeping, easily arousable HEENT: Atraumatic, normocephalic, mucous membranes moist CV: Regular rate and rhythm, S1, S2 Lungs: Improved air entry, soft crackles at bases, no wheeze Abdomen: Soft, nontender, nondistended Extremities: Normal to inspection Skin: No rashes noted, no lesions or wounds seen Psych: Unable to assess Objective Data Vital Signs Vital Signs: Vital Signs - 24 hr 06/03/23 10:00 06/03/23 11:50 06/03/23 14:45 Temperature 98.1 F Pulse Rate 78 80 Respiratory Rate 20 Blood Pressure 175/75 H 147/68 H Pulse Oximetry 94 Oxygen Delivery 06/03/23 12:00 06/03/23 14:00 06/03/23 16:00 Temperature Pulse Rate 80 80 80 Respiratory Rate Blood Pressure Pulse Oximetry Oxygen Delivery 06/03/23 12:00 06/03/23 16:00 06/03/23 16:00 Temperature 98.2 F Pulse Rate 62 Respiratory Rate 24 H Blood Pressure 131/54 L Pulse Oximetry 92 Oxygen Delivery Room Air Room Air 06/03/23 18:00 06/03/23 20:00 06/03/23 20:06 Temperature 97.6 F Pulse Rate 91 91 81 Respiratory Rate 24 H 22 H Blood Pressure 150/51 H Pulse Oxi
[2023-06-04] MEDS: PERFLUTREN LIPID MICROSPHERES 1.5 ML VIAL DILUTED TO 10 ML TOTAL VOLUME IV PUSH (10:35)
[2023-06-04 11:36] LABS: Vancomycin Trough 19.9 ug/mL (10.0-20.0)
[2023-06-04 12:57] LABS: Glucose CSF 118 mg/dL (40-70); Total Protein CSF 90 mg/dL (12-60)
[2023-06-04 13:08] LABS: Appearance CSF Clear (Clear); CSF source CSF; Color CSF Colorless (Colorless)
--- NOTE | 2023-06-04 13:19 | ECHO_ITS ---
Patient Info Name: Sae Wing Age: 82 years : 1940 Gender: Male Ht: 69 in Wt: 265 lbs BSA: 2.47 m2 HR: 80 bpm BP: 150 / 51 mmHg Heart Rhythm: Left Bundle Branch Block Technical Quality: Poor Exam Date: 06/04/2023 8:14 AM Exam Location: Echo Lab Patient Status: Inpatient Admit Date: 06/02/2023 Staff Ordering Physician: Kary Coughlin PA-C Attending Provider: Helena Hurley DO Referring Physician: Madyson BHAKTA; Exam Type: CA echo dop color flow w con Study Info Indications - elevated trop I50.43 - Acute on chronic combined systolic (congestive) and diastolic (congestive) heart failure Complete two-dimensional, color flow and Doppler transthoracic echocardiogram is performed with contrast to opacify the left ventricle and to improve the deliniation of the left ventricle endocardial borders. Contrast/Agitated Saline Contrast/Ag. Saline: Definity Amount: 2.00 ml Existing IV Access: Yes IV Access Condition: patent with no signs of infiltration Reason for Poor Study: patient body habitus Summary 1. Definity contrast administered improved wall motion interpretation. 2. Left ventricular chamber dimension is normal. 3. Left ventricular systolic function is mildly reduced, estimated at 45-50%. 4. There is mild concentric increased left ventricular wall thickness. 5. The left ventricular diastolic function is grade I diastolic dysfunction. 6. E/e' 19 is elevated. 7. Left atrial chamber dimension is moderately enlarged. 8. 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 9. There is mild aortic valve stenosis with a peak velocity of 230.39 cm/s, mean gradient of 11 mmHg, and aortic valve area of 1.72 cm2. 10. The mitral valve has mildly calcified leaflets and moderately calcified annulus. 11. There is trace tricuspid valve regurgitation. 12. RVSP is not calculated due to an inadequate TR jet. Left Ventricle E/e' 19 is elevated. Definity contrast administered improved wall motion interpretation. Left ventricular chamber dimension is normal. Left ventricular systolic function is mildly reduced, estimated at 45-50%. There is mild concentric increased left ventricular wall thickness. The left ventricular diastolic function is grade I diastolic dysfunction. Right Ventricle Right ventricular systolic function is normal and with normal TAPSE 1.9 cm. Right ventricular chamber dimension is normal. Left Atria Left atrial chamber dimension is moderately enlarged. Right Atria Right atrial chamber dimension is normal. Aortic Valve The aortic valve is trileaflet. 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 There is mild aortic valve stenosis with a peak velocity of 230.39 cm/s, mean gradient of 11 mmHg, and aortic valve area of 1.72 cm2. There is no aortic valve regurgitation. Pulmonic Valve There is no pulmonic regurgitation. Mitral Valve The mitral valve has mildly calcified leaflets and moderately calcified annulus. There is no mitral valve stenosis. There is no mitral valve regurgitation. Tricuspid Valve There is trace tricuspid valve regurgitation. RVSP is not calculated due to an inadequate TR jet. Pericardium/Pleural There is no pericardial effusion. Inferior Vena Cava Normal inferior vena cava with >50% collapse upon inspiration consistent with normal right atrial pressure, 5 mmHg. Aorta The aortic root size at the sinus of Valsalva is normal. Left Ventricular Outflow Tract Name Valu
[2023-06-04] MEDS: ENALAPRILAT 1.25 MG/ML VIAL 2.5 MG IV PUSH (13:36)
[2023-06-04 13:38] LABS: Nucleated Cell CSF 2 /uL (0-5)
[2023-06-04 13:39] LABS: Red Blood Cell CSF 6 (0-2)
[2023-06-04] MEDS: VANCOMYCIN 1,500 MG/NS 500 ML 1,500 MG/500 ML BAG 250 MG IVPB (13:40)
[2023-06-04 13:55] LABS: Glucose Point of Care 170 mg/dl (65-105)
[2023-06-04 14:00] LABS: Lymphocytes CSF 60 % (40-80); Monocytes CSF 24 % (15-45); Other Cells CSF 16 %
[2023-06-04 16:45] LABS: Glucose Point of Care 194 mg/dl (65-105)
[2023-06-04] MEDS: SODIUM CHLORIDE 0.9% IV 250 ML 10 ML (20:22)
[2023-06-04 21:01] LABS: Glucose Point of Care 133 mg/dl (65-105)
[2023-06-05] VITALS (16 sets, daily range): BP systolic 160–185; BP diastolic 62–96; PULSE 77–94; RESP 16–24; TEMP 36.4–36.9; O2SAT 93–100; BMI 11.0; BMI 10.0
[2023-06-05] MEDS: AMPICILLIN 2 GM/NS 100 ML 2 GM/100 ML BAG IVPB ×6 (00:14→20:46)
[2023-06-05] MEDS: ENALAPRILAT 1.25 MG/ML VIAL 2.5 MG IV PUSH ×4 (02:59→17:03)
[2023-06-05] MEDS: cefTRIAXone 2 GM/NS 100 ML 2 GM/100 ML BAG IVPB ×2 (05:00→16:59)
[2023-06-05 05:21] LABS: Basophils Absolute Auto 0.1 K/mm3 (0.0-0.1); Basophils Percent Auto 0.4 % (0.2-1.2); Eosinophils Absolute Auto 0.1 K/mm3 (0-0.3); Eosinophils Percent Auto 0.4 % (0-4.4); Hematocrit 35.1 % (42.0-52.0); Hemoglobin 10.9 g/dL (14.0-18.0); Immature Granulocyte Absolute 0.09 K/mm3 (0.00-0.031); Immature Granulocyte Percent A 0.7 % (0-0.5); Lymphocytes Absolute Auto 1.28 K/mm3 (0.9-3.2); Lymphocytes Percent Auto 9.3 % (18.3-44.2); Mean Corpuscular HGB Conc 31.1 g/dl (32-36); Mean Corpuscular Volume 93.4 fl (80-100); Mean Platelet Volume 9.7 fl (7.4-10.4); Monocytes Absolute Auto 1.6 K/mm3 (0.1-0.6); Monocytes Percent Auto 11.5 % (2.6-8.5); Neutrophils Absolute Auto 10.7 K/mm3 (1.3-6.7); Neutrophils Percent Auto 77.7 % (45.5-73.1); Platelet Count Result 232 k/mm3 (150-375); Red Blood Count 3.76 M/mm3 (4.6-6.20); White Blood Count 13.7 K/mm3 (4.5-10.0)
[2023-06-05 05:33] LABS: Alanine Aminotransferase 15 U/L (6-50); Albumin Level 3.1 g/dL (3.5-5.1); Alkaline Phosphatase 88 U/L (38-126); Anion Gap 9 mmol/L (8-16); Aspartate Amino Transferase 25 U/L (17-59); Bilirubin,Total 1.4 mg/dL (0.2-1.3); Blood Urea Nitrogen 31 mg/dL (9-20); Calcium 8.1 mg/dL (8.4-10.2); Carbon Dioxide 23 mmol/L (22-30); Chloride 110 mmol/L (98-107); Estimated CRCL calculation 45 ml/min; Estimated Glomerular Filt Rate 42; Glucose 147 mg/dL (65-110); Potassium 3.6 mmol/L (3.4-5.0); Sodium 142 mmol/L (137-145)
--- NOTE | 2023-06-05 05:59 | PCRCNOTE ---
Pt was able to actively expectorate this am without a hypertonic neb txt. Sample given to ISABEL.
[2023-06-05] MEDS: DOXYCYCLINE 100 MG/NS 100 ML 100 MG/100 ML BAG IVPB (06:02)
[2023-06-05] MEDS: ACYCLOVIR SODIUM IVPB 800 MG in DEXTROSE 5% IN WATER 250 ML 266 MG IVPB ×2 (06:57→13:31)
--- NOTE | 2023-06-05 07:39 | PM.PNCARD ---
Progress Note: A&P Assessment and Plan (1) Elevated troponin: Code(s): R79.89 - Other specified abnormal findings of blood chemistry Status: Acute Assessment and Plan: Peaked at 1.57. Probably related to infection/confusion. Doubt ACS given no symptoms to suggest it. 06/04/23 Echo: EF 45-50%, mild LVH, grade I diastolic dysfunction (E/e' 19), mod LAE, mild (PEACE 1.72 cm2), mod MAC, trace TR. EF improved compared to last echo. No further cardiac workup is needed. (2) Pneumonia: Code(s): J18.9 - Pneumonia, unspecified organism Status: Acute Assessment and Plan: On antibitotics as per hospitalist. (3) Insulin dependent type 2 diabetes mellitus: Code(s): E11.9 - Type 2 diabetes mellitus without complications; Z79.4 - manager long term care (current) use of insulin Status: Acute Assessment and Plan: Managed as per hospitalits. (4) Hypertension: Qualifiers: Hypertension type: unspecified Qualified Code(s): I10 - Essential (primary) hypertension Code(s): I10 - Essential (primary) hypertension Status: Chronic Assessment and Plan: Improved. Home PO meds are on hold. On Enalapril 2.5 mg IV every 6 hrs with parameters. (5) Dyslipidemia: Code(s): E78.5 - Hyperlipidemia, unspecified Status: Acute Assessment and Plan: Normally on Atorvastatin. (6) Altered mental status: Code(s): R41.82 - Altered mental status, unspecified Status: Acute Assessment and Plan: Workup underway. Neurology following. Completed LP and MRI brain. (7) Left bundle branch block: Code(s): I44.7 - Left bundle-branch block, unspecified Status: Acute Assessment and Plan: Chronic. Subjective Date/time seen: 06/05/23 07:39 Interval history: He is alert today but confused and does not know year. No chest pain or sob. Exam Const: General: cooperative, comfortable and obese Nutritional Appearance: obese Resp: Auscultation: clear to auscultation bilaterally, no crackles, no rales, no rhonchi and no wheezes Cardio: Rate: regular rate Rhythm: regular rhythm Heart sounds: no murmurs Peripheral pulses: dorsalis pedis present Neuro: General: oriented to person and oriented to place Extrem: Right lower extremity: no edema Left lower extremity: no edema Objective Data Vital Signs Vital Signs: Vital Signs - 24 hr 06/04/23 08:00 06/04/23 08:00 06/04/23 08:00 Temperature 97.4 F L Pulse Rate 85 104 H 85 Respiratory Rate 20 20 Blood Pressure 149/68 H Pulse Oximetry 96 96 Oxygen Delivery Room Air 06/04/23 10:00 06/04/23 11:33 06/04/23 12:35 Temperature Pulse Rate 83 69 72 Respiratory Rate 18 20 Blood Pressure 155/69 H 150/72 H Pulse Oximetry 93 95 Oxygen Delivery 06/04/23 12:00 06/04/23 13:10 06/04/23 13:10 Temperature 99.5 F Pulse Rate 78 95 95 Respiratory Rate 18 20 Blood Pressure 175/92 H Pulse Oximetry 98 95 Oxygen Delivery Room Air 06/04/23 15:59 06/04/23 16:00 06/04/23 16:00 Temperature 97.8 F Pulse Rate 83 87 87 Respiratory Rate 16 16 Blood Pressure 153/64 H Pulse Oximetry 95 95 Oxygen Delivery Room Air 06/04/23 18:00 06/04/23 20:00 06/04/23 20:00 Temperature 98.7 F Pulse Rate 73 87 87 Respiratory Rate 16 16 Blood Pressure 142/57 H Pulse Oximetry 93 93 Oxygen Delivery Room Air 06/04/23 23:29 06/04/23 20:00 06/04/23 22:00 Temperature 97.2 F L Pulse Rate 84 85 81 Respiratory Rate 18 Blood Pressure 143/52 H Pulse Oximetry 96 Oxygen Delivery 06/05/23 00:00 06/05/23 00:00 06/05/23 02:00 Temperature Pulse Rate 83 83 80 Respiratory Rate 18 Blood Pressure Pulse Oximetry 96 Oxygen Delivery Room Air 06/05/23 04:00 06/05/23 05:11 06/05/23 04:00 Temperature 97.5 F L Pulse Rate 80 87 77 Respiratory Rate 18 18 Blood Pressure 160/86 H Pulse Oximetry 96 100 Oxygen Delivery Room Air
[2023-06-05] MEDS: FAMOTIDINE 20 MG TABLET BY MOUTH (08:05)
[2023-06-05] MEDS: INSULIN GLARGINE (*BKC) 100 UNITS/ML 30 UNITS SUB-Q (08:06)
[2023-06-05 09:07] LABS: Glucose Point of Care 175 mg/dl (65-105)
--- NOTE | 2023-06-05 11:20 | PM.IMPN ---
Progress Note: A&P Assessment and Plan (1) Altered mental status: Code(s): R41.82 - Altered mental status, unspecified Status: Acute Assessment and Plan: Unsure of etiology, continue antibiotics, follow-up blood cultures Procalcitonin 0.1 Started on vancomycin, doxycycline, ampicillin, ceftriaxone, and valacyclovir 06/02 for infection of unknown etiology, possible meningitis due to altered mental status Symptoms improving, MRI wnl, LP pending Neuro consult placed and appreciated Haldol as needed, avoid sedating agents (2) Pneumonia: Code(s): J18.9 - Pneumonia, unspecified organism Status: Acute Assessment and Plan: Pneumonia versus atelectasis, continue antibiotics, monitor response (3) Elevated troponin: Code(s): R79.89 - Other specified abnormal findings of blood chemistry Status: Acute Assessment and Plan: Troponin continues to elevate, consult Cardiology appreciated ECG showed atrial flutter with RVR, left bundle branch block Echo pending (4) Combined systolic and diastolic congestive heart failure: Code(s): I50.40 - Unspecified combined systolic (congestive) and diastolic (congestive) heart failure Status: Acute Assessment and Plan: Appears euvolemic (5) Insulin dependent type 2 diabetes mellitus: Code(s): E11.9 - Type 2 diabetes mellitus without complications; Z79.4 - terminal superintendent (current) use of insulin Status: Acute Assessment and Plan: Accu-Cheks, sliding scale insulin, check A1c Decrease dose lantus while npo, usually on 50 units at home, will give 30 units here and monitor Blood glucose reviewed 06/05 (6) Hypertension: Qualifiers: Hypertension type: unspecified Qualified Code(s): I10 - Essential (primary) hypertension Code(s): I10 - Essential (primary) hypertension Status: Chronic Assessment and Plan: Blood pressure reviewed 06/05 Plan DVT prophylaxis with SCDs GI prophylaxis not indicated Code status full code Subjective Date/time seen: 06/05/23 11:20 Interval history: 82-year-old male with history of heart failure, hypertension, hyperlipidemia, diabetes, COPD is presenting with altered mental status. 06/03: Noted agitation overnight, given benadryl + ativan x 1, now more sedated today. No chest pain or shortness of breath. No nausea, vomiting or diarrhea. No fevers or chills. 06/04: no more sedating meds, no more benadryl or ativan, haldol as needed, not needed yet. no events, family in the room and state patient is much more alert today and closer to baseline, still slightly confused. no fevers. 06/05: mentation almost back to baseline. no events, no fevers. Review of Systems Review of Systems: 12 point review of systems was assessed and was negative except as noted in the HPI Exam Narrative: General: No acute distress, alert and oriented per baseline HEENT: Atraumatic, normocephalic, mucous membranes moist CV: Regular rate and rhythm, S1, S2 Lungs: Improved air entry, soft crackles at bases, no wheeze Abdomen: Soft, nontender, nondistended Extremities: Normal to inspection Skin: No rashes noted, no lesions or wounds seen Objective Data Vital Signs Vital Signs: Vital Signs - 24 hr 06/04/23 11:33 06/04/23 12:35 06/04/23 12:00 Temperature 99.5 F Pulse Rate 69 72 78 Respiratory Rate 18 20 18 Blood Pressure 155/69 H 150/72 H 175/92 H Pulse Oximetry 93 95 98 Oxygen Delivery 06/04/23 13:10 06/04/23 13:10 06/04/23 15:59 Temperature 97.8 F Pulse Rate 95 95 83 Respiratory Rate 20 16 Blood Pressure 153/64 H Pulse Oximetry 95 95 Oxygen Delivery Room Air 06/04/23 16:00 06/04/23 16:00 06/04/23 18:00 Temperature Pulse Rate 87 87 73 Respiratory Rate 16 Blood Pressure Pulse Oximetry 95 Oxygen Delivery Room Air 06/04/23 20:00 06/04/23 20:00 06/04/23 23:29 Temperature 98.7 F 97.2 F
[2023-06-05] MEDS: SODIUM CHLORIDE 0.9% IV 1,000 ML 999 ML IV CONT (11:37)
[2023-06-05 11:51] LABS: Glucose Point of Care 154 mg/dl (65-105)
--- NOTE | 2023-06-05 12:36 | P.CDI_ITS ---
CDI Query Clarification Request Documentation in the medical record indicates that this patient has : BMI 42.5 Based on your medical judgement, can you further clarify in the progress notes the diagnosis associated with these findings in the progress notes such as: * Overweight * Obesity * Morbid obesity * Other conditions (please specify) * None of the above/ Not applicable/ Unknown <Mari Dickerson RN - Last Filed: 06/05/23 12:40> Clarified Diagnosis Clarified Diagnosis: Morbid obesity <Helena Hurley DO - Last Filed: 06/08/23 13:54>
[2023-06-05] MEDS: VANCOMYCIN 1,500 MG/NS 500 ML 1,500 MG/500 ML BAG 250 MG IVPB (13:30)
[2023-06-05] MEDS: SODIUM CHLORIDE 0.9% IV 250 ML 15 ML (13:30)
[2023-06-05 16:28] LABS: Glucose Point of Care 255 mg/dl (65-105)
[2023-06-05] MEDS: INSULIN ASPART (*BKC) 100 UNITS/ML SUB-Q (17:00)
[2023-06-05 20:09] LABS: Glucose Point of Care 184 mg/dl (65-105)
[2023-06-06] VITALS (15 sets, daily range): BP systolic 147–180; BP diastolic 55–75; PULSE 78–89; RESP 18–24; TEMP 36.4–37.1; O2SAT 90–98
[2023-06-06] MEDS: AMPICILLIN 2 GM/NS 100 ML 2 GM/100 ML BAG IVPB ×7 (01:10→23:45)
[2023-06-06] MEDS: ENALAPRILAT 1.25 MG/ML VIAL 2.5 MG IV PUSH ×2 (01:10→05:16)
[2023-06-06 01:43] LABS: CMV DNA Quant PCR IU/mL Not Detected; Cytomegalovirus DNA Quant PCR Not Detected log IU/mL; Cytomegalovirus DNA Source Serum
[2023-06-06] MEDS: cefTRIAXone 2 GM/NS 100 ML 2 GM/100 ML BAG IVPB ×2 (03:45→16:06)
[2023-06-06 04:52] LABS: Basophils Absolute Auto 0.1 K/mm3 (0.0-0.1); Basophils Percent Auto 0.5 % (0.2-1.2); Eosinophils Absolute Auto 0.1 K/mm3 (0-0.3); Eosinophils Percent Auto 0.6 % (0-4.4); Hemoglobin 10.3 g/dL (14.0-18.0); Immature Granulocyte Absolute 0.07 K/mm3 (0.00-0.031); Immature Granulocyte Percent A 0.6 % (0-0.5); Immature Platelet Fraction Pct 2.9 % (0.9-11.2); Lymphocytes Absolute Auto 1.22 K/mm3 (0.9-3.2); Lymphocytes Percent Auto 9.6 % (18.3-44.2); Mean Corpuscular HGB Conc 30.3 g/dl (32-36); Mean Corpuscular Hemoglobin 28.9 pg (26-34); Mean Corpuscular Volume 95.5 fl (80-100); Mean Platelet Volume 10.6 fl (7.4-10.4); Monocytes Absolute Auto 1.3 K/mm3 (0.1-0.6); Monocytes Percent Auto 10.2 % (2.6-8.5); Neutrophils Percent Auto 78.5 % (45.5-73.1); Platelet Count Result 219 k/mm3 (150-375); Red Blood Count 3.56 M/mm3 (4.6-6.20); Red Cell Distribution Width 13.8 % (11.5-14.5); White Blood Count 12.7 K/mm3 (4.5-10.0)
[2023-06-06 04:59] LABS: Alanine Aminotransferase 17 U/L (6-50); Albumin Level 3.1 g/dL (3.5-5.1); Alkaline Phosphatase 84 U/L (38-126); Anion Gap 10 mmol/L (8-16); Aspartate Amino Transferase 27 U/L (17-59); Bilirubin,Total 1.1 mg/dL (0.2-1.3); Blood Urea Nitrogen 32 mg/dL (9-20); Calcium 7.8 mg/dL (8.4-10.2); Carbon Dioxide 20 mmol/L (22-30); Chloride 109 mmol/L (98-107); Estimated CRCL calculation 52 ml/min; Estimated Glomerular Filt Rate 49; Glucose 160 mg/dL (65-110); Potassium 3.6 mmol/L (3.4-5.0); Sodium 139 mmol/L (137-145)
[2023-06-06 05:22] LABS: Anisocytosis 1+ (NORMAL); Platelet Estimate Adequate (Adequate)
[2023-06-06 05:23] LABS: Hypochromasia 1+ (NORMAL); Ovalocytes 1+ (NORMAL); Schistocytes None Seen (NORMAL)
[2023-06-06] MEDS: SODIUM CHLOR 3% 15 ML NEB (RESPIRATORY THERAPY) 6 ML INHALATION (05:24)
--- NOTE | 2023-06-06 07:39 | PM.PNCARD ---
Progress Note: A&P Assessment and Plan (1) Elevated troponin: Code(s): R79.89 - Other specified abnormal findings of blood chemistry Status: Acute Assessment and Plan: Peaked at 1.57. Probably related to infection/confusion. Doubt ACS given no symptoms to suggest it. 06/04/23 Echo: EF 45-50%, mild LVH, grade I diastolic dysfunction (E/e' 19), mod LAE, mild (PEACE 1.72 cm2), mod MAC, trace TR. EF improved compared to last echo. No further cardiac workup is needed. (2) Pneumonia: Code(s): J18.9 - Pneumonia, unspecified organism Status: Acute Assessment and Plan: On antibitotics as per hospitalist. (3) Insulin dependent type 2 diabetes mellitus: Code(s): E11.9 - Type 2 diabetes mellitus without complications; Z79.4 - intermission coordinator (current) use of insulin Status: Acute Assessment and Plan: Managed as per hospitalits. (4) Hypertension: Qualifiers: Hypertension type: unspecified Qualified Code(s): I10 - Essential (primary) hypertension Code(s): I10 - Essential (primary) hypertension Status: Chronic Assessment and Plan: High. Resume home BP medication as he is no longer NPO and tolerating a diet. D/C Enalapril IV. Continue Hydralazine 10 mg IV prn. (5) Dyslipidemia: Code(s): E78.5 - Hyperlipidemia, unspecified Status: Acute Assessment and Plan: Resume Atorvastatin. (6) Altered mental status: Code(s): R41.82 - Altered mental status, unspecified Status: Acute Assessment and Plan: Improved. Neurology following. Completed LP and MRI brain. (7) Left bundle branch block: Code(s): I44.7 - Left bundle-branch block, unspecified Status: Acute Assessment and Plan: Chronic. Subjective Date/time seen: 06/06/23 07:39 Interval history: He is alert today but confused and does not know year. No chest pain or sob. Exam Const: General: cooperative, comfortable, obese and other (somnolent) Nutritional Appearance: obese Orientation/consciousness: oriented to person and oriented to place Resp: Auscultation: clear to auscultation bilaterally, no crackles, no rales, no rhonchi and no wheezes Cardio: Rate: regular rate Rhythm: regular rhythm Heart sounds: no murmurs Peripheral pulses: dorsalis pedis present Neuro: General: oriented to person and oriented to place Extrem: Right lower extremity: no edema Left lower extremity: no edema Objective Data Vital Signs Vital Signs: Vital Signs - 24 hr 06/05/23 08:05 06/05/23 08:00 06/05/23 08:00 Temperature 97.7 F Pulse Rate 85 94 87 Respiratory Rate 16 16 Blood Pressure 162/62 H Pulse Oximetry 96 96 Oxygen Delivery Room Air 06/05/23 12:00 06/05/23 12:20 06/05/23 15:19 Temperature 98.3 F 98.1 F Pulse Rate 88 88 Respiratory Rate 24 H 24 H Blood Pressure 185/96 H 172/73 H Pulse Oximetry 93 93 Oxygen Delivery Room Air 06/05/23 12:00 06/05/23 12:00 06/05/23 14:00 Temperature Pulse Rate 84 88 90 Respiratory Rate 24 H Blood Pressure Pulse Oximetry 93 Oxygen Delivery Room Air 06/05/23 16:00 06/05/23 16:00 06/05/23 20:22 Temperature 98.5 F Pulse Rate 91 88 84 Respiratory Rate 24 H 22 H Blood Pressure 178/76 H Pulse Oximetry 93 97 Oxygen Delivery Room Air 06/05/23 20:00 06/05/23 20:00 06/05/23 21:37 Temperature Pulse Rate 82 82 84 Respiratory Rate 22 H Blood Pressure Pulse Oximetry 97 Oxygen Delivery Room Air 06/05/23 23:46 06/05/23 23:46 06/05/23 23:55 Temperature 97.6 F Pulse Rate 87 87 87 Respiratory Rate 22 H 22 H Blood Pressure 168/66 H Pulse Oximetry 97 93 Oxygen Delivery Room Air 06/06/23 01:22 06/06/23 03:55 06/06/23 03:55 Temperature Pulse Rate 82 80 80 Respiratory Rate 22 H Blood Pressure Pulse Oximetry 93 Oxygen Delivery Room Air 06/06/23 04:05 06/06/23 05:28 06/06/23 05:34 Temperature 97.6 F Pulse Ra
[2023-06-06 08:15] LABS: Glucose Point of Care 148 mg/dl (65-105)
[2023-06-06] MEDS: amLODIPine BESYLATE 5 MG TABLET BY MOUTH (09:22)
[2023-06-06] MEDS: FAMOTIDINE 20 MG TABLET BY MOUTH (09:22)
[2023-06-06] MEDS: lisinopriL 10 MG TABLET PO ×2 (09:22→16:05)
[2023-06-06] MEDS: INSULIN GLARGINE (*BKC) 100 UNITS/ML 30 UNITS SUB-Q (09:36)
[2023-06-06 12:24] LABS: Glucose Point of Care 166 mg/dl (65-105)
[2023-06-06] MEDS: hydrALAZINE HCL 20 MG/ML VIAL 10 MG IV PUSH (12:25)
[2023-06-06 13:33] LABS: Mycoplasma IgM Antibody Titer 39 U/mL (<770)
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
[2023-06-06 13:55] LABS: Vancomycin Trough 16.8 ug/mL (10.0-20.0)
[2023-06-06] MEDS: VANCOMYCIN 1,500 MG/NS 500 ML 1,500 MG/500 ML BAG 250 MG IVPB (14:53)
[2023-06-06 15:13] LABS: VDRL Quantitative CSF Nonreactive (Nonreactive)
[2023-06-06 16:33] LABS: Varicella IgM Antibody <=0.90 (<=0.90)
[2023-06-06 16:57] LABS: Glucose Point of Care 212 mg/dl (65-105)
[2023-06-06] MEDS: INSULIN ASPART (*BKC) 100 UNITS/ML SUB-Q ×2 (17:14→20:19)
[2023-06-06 20:11] LABS: West Nile Virus, IgM <0.90 index (<0.90)
[2023-06-06] MEDS: carvediloL 3.125 MG TABLET PO (20:18)
[2023-06-06 20:26] LABS: Glucose Point of Care 213 mg/dl (65-105)
[2023-06-06 20:45] LABS: Pneumococcal Antigen Urine Not Detected (Not Detected)
[2023-06-07] VITALS (15 sets, daily range): BP systolic 125–184; BP diastolic 58–78; PULSE 71–96; RESP 18–22; TEMP 36.4–37.1; O2SAT 74–97; BMI 10.0
[2023-06-07 03:05] LABS: Legionella pneumophila Ag Ur Not Detected (Not Detected)
[2023-06-07] MEDS: AMPICILLIN 2 GM/NS 100 ML 2 GM/100 ML BAG IVPB ×5 (03:18→20:08)
[2023-06-07] MEDS: cefTRIAXone 2 GM/NS 100 ML 2 GM/100 ML BAG IVPB ×2 (03:19→16:56)
[2023-06-07 04:58] LABS: Basophils Percent Auto 0.3 % (0.2-1.2); Eosinophils Absolute Auto 0.1 K/mm3 (0-0.3); Hematocrit 32.5 % (42.0-52.0); Hemoglobin 10.2 g/dL (14.0-18.0); Immature Granulocyte Absolute 0.07 K/mm3 (0.00-0.031); Immature Granulocyte Percent A 0.6 % (0-0.5); Lymphocytes Absolute Auto 1.16 K/mm3 (0.9-3.2); Lymphocytes Percent Auto 9.3 % (18.3-44.2); Mean Corpuscular HGB Conc 31.4 g/dl (32-36); Mean Corpuscular Hemoglobin 29.1 pg (26-34); Mean Corpuscular Volume 92.6 fl (80-100); Mean Platelet Volume 10.1 fl (7.4-10.4); Monocytes Absolute Auto 1.2 K/mm3 (0.1-0.6); Monocytes Percent Auto 9.9 % (2.6-8.5); Neutrophils Absolute Auto 9.8 K/mm3 (1.3-6.7); Neutrophils Percent Auto 78.9 % (45.5-73.1); Platelet Count Result 239 k/mm3 (150-375); Red Blood Count 3.51 M/mm3 (4.6-6.20); Red Cell Distribution Width 13.7 % (11.5-14.5); White Blood Count 12.5 K/mm3 (4.5-10.0)
[2023-06-07 05:10] LABS: Alanine Aminotransferase 22 U/L (6-50); Albumin Level 2.8 g/dL (3.5-5.1); Alkaline Phosphatase 89 U/L (38-126); Anion Gap 5 mmol/L (8-16); Aspartate Amino Transferase 29 U/L (17-59); Bilirubin,Total 0.9 mg/dL (0.2-1.3); Blood Urea Nitrogen 33 mg/dL (9-20); Calcium 7.8 mg/dL (8.4-10.2); Carbon Dioxide 26 mmol/L (22-30); Chloride 107 mmol/L (98-107); Estimated CRCL calculation 55 ml/min; Estimated Glomerular Filt Rate 53; Glucose 142 mg/dL (65-110); Potassium 3.2 mmol/L (3.4-5.0); Sodium 138 mmol/L (137-145)
--- NOTE | 2023-06-07 08:00 | PM.PNCARD ---
Progress Note: A&P Assessment and Plan (1) Elevated troponin: Code(s): R79.89 - Other specified abnormal findings of blood chemistry Status: Acute Assessment and Plan: Peaked at 1.57. Probably related to infection/confusion. Doubt ACS given no symptoms to suggest it. 06/04/23 Echo: EF 45-50%, mild LVH, grade I diastolic dysfunction (E/e' 19), mod LAE, mild (PEACE 1.72 cm2), mod MAC, trace TR. EF improved compared to last echo. No further cardiac workup is needed. (2) Pneumonia: Code(s): J18.9 - Pneumonia, unspecified organism Status: Acute Assessment and Plan: On antibitotics as per hospitalist. (3) Insulin dependent type 2 diabetes mellitus: Code(s): E11.9 - Type 2 diabetes mellitus without complications; Z79.4 - extermination inspector (current) use of insulin Status: Acute Assessment and Plan: Managed as per hospitalits. (4) Hypertension: Qualifiers: Hypertension type: unspecified Qualified Code(s): I10 - Essential (primary) hypertension Code(s): I10 - Essential (primary) hypertension Status: Chronic Assessment and Plan: High. Resumed home BP medication but increased Lisinopril 10 mg BID and started Coreg 3.125 mg BID. Continue Hydralazine 10 mg IV prn. (5) Dyslipidemia: Code(s): E78.5 - Hyperlipidemia, unspecified Status: Acute Assessment and Plan: Resume Atorvastatin. (6) Altered mental status: Code(s): R41.82 - Altered mental status, unspecified Status: Acute Assessment and Plan: Improved. Neurology following. Completed LP and MRI brain. (7) Left bundle branch block: Code(s): I44.7 - Left bundle-branch block, unspecified Status: Acute Assessment and Plan: Chronic. Subjective Date/time seen: 06/07/23 08:00 Interval history: He is alert, but does not know year. No chest pain or sob. Exam Const: General: cooperative, comfortable, obese and other (somnolent) Nutritional Appearance: obese Orientation/consciousness: oriented to person and oriented to place Resp: Auscultation: clear to auscultation bilaterally, no crackles, no rales, no rhonchi and no wheezes Cardio: Rate: regular rate Rhythm: regular rhythm Heart sounds: no murmurs Peripheral pulses: dorsalis pedis present Neuro: General: oriented to person and oriented to place Extrem: Right lower extremity: no edema Left lower extremity: no edema Objective Data Vital Signs Vital Signs: Vital Signs - 24 hr 06/06/23 10:24 06/06/23 12:10 06/06/23 12:00 Temperature 98.7 F Pulse Rate 86 Respiratory Rate 22 H Blood Pressure 173/74 H Pulse Oximetry 90 Oxygen Delivery Room Air Room Air 06/06/23 16:00 06/06/23 16:00 06/06/23 16:00 Temperature 98.1 F Pulse Rate 89 83 Respiratory Rate 24 H Blood Pressure 162/72 H Pulse Oximetry 91 Oxygen Delivery Room Air 06/06/23 18:00 06/06/23 20:14 06/06/23 20:18 Temperature 97.7 F Pulse Rate 88 86 78 Respiratory Rate 22 H Blood Pressure 147/55 H Pulse Oximetry 95 Oxygen Delivery 06/06/23 20:00 06/06/23 20:00 06/06/23 21:12 Temperature Pulse Rate 86 86 84 Respiratory Rate 22 H Blood Pressure Pulse Oximetry 95 Oxygen Delivery Room Air 06/07/23 00:00 06/07/23 00:00 06/07/23 00:17 Temperature 97.6 F Pulse Rate 83 83 89 Respiratory Rate 22 H 22 H Blood Pressure 151/58 H Pulse Oximetry 95 94 Oxygen Delivery Room Air 06/07/23 02:00 06/07/23 03:28 06/07/23 03:28 Temperature 97.6 F Pulse Rate 84 80 78 Respiratory Rate 22 H Blood Pressure 163/75 H Pulse Oximetry 97 Oxygen Delivery 06/07/23 03:28 06/07/23 06:00 Temperature Pulse Rate 78 84 Respiratory Rate 22 H Blood Pressure Pulse Oximetry 94 Oxygen Delivery Room Air Intake/Output Intake/Output: Intake & Output 06/04/23 06/05/23 06/06/23 06/07/23 23:59 23:59 23:59 23:59 Intake Total 0527 [id number] 208
[2023-06-07 08:28] LABS: Glucose Point of Care 185 mg/dl (65-105)
[2023-06-07] MEDS: amLODIPine BESYLATE 5 MG TABLET BY MOUTH (08:57)
[2023-06-07] MEDS: carvediloL 3.125 MG TABLET PO ×2 (08:57→20:09)
[2023-06-07] MEDS: lisinopriL 10 MG TABLET PO ×2 (08:58→16:55)
[2023-06-07] MEDS: INSULIN GLARGINE (*BKC) 100 UNITS/ML 30 UNITS SUB-Q (08:58)
[2023-06-07] MEDS: FAMOTIDINE 20 MG TABLET BY MOUTH (08:58)
[2023-06-07] MEDS: POTASSIUM CHLORIDE 20 MEQ PACKET (FOR LIQUID) 40 MEQ PO (08:59)
--- NOTE | 2023-06-07 09:40 | WPDNEUROPN ---
Progress Note: A&P Assessment and Plan (1) Altered mental status: Code(s): R41.82 - Altered mental status, unspecified Status: Acute Plan Sae Wing is a 82 year old male with a history of diabetes, hypertension, CHF, COPD, hyperlipidemia presenting for altered mental status. Started on meningitic antibiotics and acyclovir. LP was done about two days after antibiotics were initiated. Normal CSF culture and CSF cell count is negative. Elevated protein CSF which may suggest an infectious meningitis/encephalitis presentation. WBC is still elevated but downtrending. There is also concern that he may have pneumonia, which he is being treated with the antibiotics he is currently on. Mental status seems to be better today. Will continue to monitor. Subjective Date/time seen: 06/07/23 09:40 Interval history: Sae Wing is a 82 year old male with a history of diabetes, hypertension, CHF, COPD, hyperlipidemia presenting for altered mental status. On day before presentation patient was complaining of chills. Patient seemed to be increasingly more confused throughout the day -- went outside without his cane or jacket. He was also attempting to climb up the kitchen cabinets and the fireplace. was not able to redirect him. Patient previously has had similar behavior with pneumonia in the past. Patient was taken to [place] ED for further evaluation. In the ED his temperature was 100.1 on arrival. His labs were significant for WBC of 11.1. CRP was wnl. UA not suggestive of infection. URI panel was negative. Alcohol and UDS was negative. CT head did not show any acute findings. CXR read as bibasilar airspace opacities suggestive of atelectasis vs pneumonia. CT chest abdomen pelvis did not show any infectious source. He was quite agitated in the ED so he received several doses of Ativan, Haldol, and Versed. He was started on Rocephin, ampicillin, vancomycin, and acyclovir. MRI brain w/o contrast read as normal. LP showed normal cell count but elevated protein of 90. He continues to remain on acyclovir, ampicillin, Rocephin, Vancomycin. CSF bacterial and fungal culture is negative. Blood culture is negative. CSF HSV is pending. at bedside this morning, she feels that he is more alert and his mentation is better today. WBC still elevated at 12.5 but slowly downtrending. Review of Systems Review of Systems: All systems reviewed & are unremarkable except as noted in HPI and below Exam Const: General: comfortable and no acute distress Eyes: Pupils: Equal, round and reactive pupils present EOM: EOMs intact bilaterally Resp: Effort & Inspection: normal respiratory effort Skin: Other: bruising in both upper extremities Neuro: Other: Awake, alert, oriented to self, knows he is at hospital. R lower face droop, L eye ptosis, 2/5 strength in all four extremities, Following commands well. Extrem: General: edema Objective Data Vital Signs Vital Signs: Vital Signs - 24 hr 06/06/23 10:24 06/06/23 12:10 06/06/23 12:00 Temperature 37.1 C Pulse Rate 86 Respiratory Rate 22 H Blood Pressure 173/74 H Pulse Oximetry 90 Oxygen Delivery Room Air Room Air 06/06/23 16:00 06/06/23 16:00 06/06/23 16:00 Temperature 36.7 C Pulse Rate 89 83 Respiratory Rate 24 H Blood Pressure 162/72 H Pulse Oximetry 91 Oxygen Delivery Room Air 06/06/23 18:00 06/06/23 20:14 06/06/23 20:18 Temperature 36.5 C Pulse Rate 88 86 78 Respiratory Rate 22 H Blood Pressure 147/55 H Pulse Oximetry 95 Oxygen Delivery 06/06/23 20:00 06/06/23 20:00 06/06/23 21:12 Temperature Pulse Rate 86 86 84 Respiratory Rate 22 H Blood Pressure Pulse Oximetry 95 Oxygen Delivery Room Air 06/07/23 00:00 06/07/23 00:00 06/07/23 00:17 Temperature 36.4 C Pulse Rate 83 83 89 Respiratory Rate 22 H 22 H Blood Pressure 151/58 H Pulse Oximetry 95 94 Oxygen Delivery Room Air
--- NOTE | 2023-06-07 11:47 | PM.IMPN ---
Progress Note: A&P Assessment and Plan (1) Altered mental status: Code(s): R41.82 - Altered mental status, unspecified Status: Acute Assessment and Plan: Patient presents to the ED with AMS. He was confusd, combative and somnolent at times. Unsure of etiology but consider infectious etiology. LP performed and started on vancomycin, ampicillin, ceftriaxone, and acyclovir 06/02 Procalcitonin 0.1 Brain MRI shownig no acute findings. BCx NGTD CSF Cx NGTD VZV IgM negative, CMV negative, VDRL nonreactive, Lyme pending, HSV pending Neuro consulted and appreciated their input. Consider brain stem CVA. Haldol as needed but otherwise no sedating medications. Symptoms improving Continue PT/OT (2) Pneumonia: Code(s): J18.9 - Pneumonia, unspecified organism Status: Acute Assessment and Plan: Chest CT showing dependent airspace opacities bilateral lower lobe c/w atelectasis vs PNA. WBC better but stable now Continue antibiotics. Continue to monitor response (3) Elevated troponin: Code(s): R79.89 - Other specified abnormal findings of blood chemistry Status: Acute Assessment and Plan: Troponin elevated and peaked at 1.57. ECG showed sinus or ectopic atrial tachycardia with Lt BBB. The BBB is old. Cardiology consulted who felt elevated Trop related to infectious process. Echo showing EF 40-45%with Grade I diastolic dysfunction, mild valvular disease. (EF improved per cardiology) No further cardiac workup recommended. (4) Combined systolic and diastolic congestive heart failure: Code(s): I50.40 - Unspecified combined systolic (congestive) and diastolic (congestive) heart failure Status: Acute Assessment and Plan: More edematous but feel this is more dependent edema from not moving his hands much. Will treat with low dose lasix Monitor (5) Insulin dependent type 2 diabetes mellitus: Code(s): E11.9 - Type 2 diabetes mellitus without complications; Z79.4 - bed bug exterminator (current) use of insulin Status: Acute Assessment and Plan: A1c 6.7 in Feb. The patient's blood glucose was reviewed on 06/07 Glucose remains reasonably well controlled. Continue AccuCheks covering with sliding scale. Hypoglycemia protocol available as needed. Continue to monitor (6) Hypertension: Qualifiers: Hypertension type: unspecified Qualified Code(s): I10 - Essential (primary) hypertension Code(s): I10 - Essential (primary) hypertension Status: Chronic Assessment and Plan: Patient's blood pressure was reviewed on 06/07 Blood pressure better controlled. Continue Norvasc, Coreg and Lisinopril Will continue to follow Plan DVT prophylaxis with SCDs; add Lovenox Code status full code Subjective Date/time seen: 06/07/23 11:47 Interval history: 82-year-old male with history of heart failure, hypertension, hyperlipidemia, diabetes, COPD is presenting with altered mental status. Feels better today. Able to sit at the side of the bed. Slept most of the day yesterday and so did not sleep well last night. No chest pain or shortness of breath. He is alert but confused. Review of Systems Review of Systems: ROS unobtainable: Yes unobtainable due to mental status Exam Narrative: AF 97.6 157/78 77 22 94% ra Gen - NARD HEENT - right facial droop Chest -bibasilar inspiratory crackles. CV - RRR S1/S2. Tele showing NSR, BBB and occasional PVCs Abd - Soft, obese, NT Ext - UE>LE pitting edema. Improved ROM to the UE. Left charcot foot Neuro - less somnolent. mildly garbled speech. 4+/5 bilateral knee felx/ext. AOx2 (not year or Kathy name) Psych - difficult to assess Skin - Warm and dry Objective Data Vital Signs Vital Signs: Vital Signs - 24 hr 06/06/23 12:10 06/06/23 12:00 06/06/23 16:00 Temperature 98.7 F Pulse Rate 86 89 Respiratory Rate 22 H Blood Pressure 173/74 H Pulse Oximetr
[2023-06-07 11:57] LABS: Glucose Point of Care 176 mg/dl (65-105)
[2023-06-07] MEDS: FUROSEMIDE INJ 40 MG/4 ML VIAL IV PUSH ×2 (12:25→16:55)
[2023-06-07] MEDS: ENOXAPARIN 40 MG/0.4 ML SYRINGE SUB-Q (12:25)
[2023-06-07] MEDS: VANCOMYCIN 1,500 MG/NS 500 ML 1,500 MG/500 ML BAG 250 MG IVPB (14:01)
[2023-06-07 14:54] LABS: Lyme Disease Ab (IgM), Blot Negative (Negative); Lyme Disease Ab(IgG), Blot Negative (Negative)
[2023-06-07 15:38] LABS: Glucose Point of Care 194 mg/dl (65-105)
--- NOTE | 2023-06-07 16:04 | PC.NURSE ---
Notified Dr. Cruz of Lyme IgG reactive results. She thinks this is chronic not acute since the IgM's are non reactive. She asked that I notify Dr. Guillaume of this. Dr. Guillaume also called and notified of results. He states that he will review them.
[2023-06-07] MEDS: ATORVASTATIN 40 MG TABLET PO (20:09)
[2023-06-07 20:23] LABS: Glucose Point of Care 173 mg/dl (65-105)
[2023-06-08] VITALS (8 sets, daily range): BP systolic 128–175; BP diastolic 54–73; PULSE 67–76; RESP 18–22; TEMP 36.2–36.7; O2SAT 93–97; BMI 44.8
[2023-06-08] MEDS: AMPICILLIN 2 GM/NS 100 ML 2 GM/100 ML BAG IVPB ×7 (01:00→23:59)
[2023-06-08] MEDS: cefTRIAXone 2 GM/NS 100 ML 2 GM/100 ML BAG IVPB ×2 (04:08→17:16)
[2023-06-08 04:55] LABS: Basophils Absolute Auto 0.1 K/mm3 (0.0-0.1); Basophils Percent Auto 0.7 % (0.2-1.2); Eosinophils Absolute Auto 0.6 K/mm3 (0-0.3); Eosinophils Percent Auto 5.2 % (0-4.4); Hematocrit 32.5 % (42.0-52.0); Hemoglobin 10.2 g/dL (14.0-18.0); Immature Granulocyte Absolute 0.05 K/mm3 (0.00-0.031); Immature Granulocyte Percent A 0.5 % (0-0.5); Lymphocytes Absolute Auto 1.63 K/mm3 (0.9-3.2); Lymphocytes Percent Auto 14.9 % (18.3-44.2); Mean Corpuscular HGB Conc 31.4 g/dl (32-36); Mean Corpuscular Hemoglobin 29.1 pg (26-34); Mean Corpuscular Volume 92.6 fl (80-100); Mean Platelet Volume 9.9 fl (7.4-10.4); Monocytes Absolute Auto 1.2 K/mm3 (0.1-0.6); Monocytes Percent Auto 10.6 % (2.6-8.5); Neutrophils Absolute Auto 7.4 K/mm3 (1.3-6.7); Neutrophils Percent Auto 68.1 % (45.5-73.1); Platelet Count Result 252 k/mm3 (150-375); Red Blood Count 3.51 M/mm3 (4.6-6.20); Red Cell Distribution Width 13.4 % (11.5-14.5); White Blood Count 10.9 K/mm3 (4.5-10.0)
--- NOTE | 2023-06-08 07:20 | PM.PNCARD ---
Progress Note: A&P Assessment and Plan (1) Elevated troponin: Code(s): R79.89 - Other specified abnormal findings of blood chemistry Status: Acute Assessment and Plan: Peaked at 1.57. Probably related to infection/confusion. Doubt ACS given no symptoms to suggest it. 06/04/23 Echo: EF 45-50%, mild LVH, grade I diastolic dysfunction (E/e' 19), mod LAE, mild (PEACE 1.72 cm2), mod MAC, trace TR. EF improved compared to last echo. No further cardiac workup is needed. (2) Pneumonia: Code(s): J18.9 - Pneumonia, unspecified organism Status: Acute Assessment and Plan: On antibitotics as per hospitalist. (3) Insulin dependent type 2 diabetes mellitus: Code(s): E11.9 - Type 2 diabetes mellitus without complications; Z79.4 - intermediate frame tender (current) use of insulin Status: Acute Assessment and Plan: Managed as per hospitalits. (4) Hypertension: Qualifiers: Hypertension type: unspecified Qualified Code(s): I10 - Essential (primary) hypertension Code(s): I10 - Essential (primary) hypertension Status: Chronic Assessment and Plan: High. On Amlodipine 5 mg daily. Increase Lisinopril 20 mg BID and increase Coreg 6.25 mg BID. Continue Hydralazine 10 mg IV prn. (5) Dyslipidemia: Code(s): E78.5 - Hyperlipidemia, unspecified Status: Acute Assessment and Plan: Resume Atorvastatin. (6) Altered mental status: Code(s): R41.82 - Altered mental status, unspecified Status: Acute Assessment and Plan: Improved. Neurology following. Completed LP and MRI brain. (7) Left bundle branch block: Code(s): I44.7 - Left bundle-branch block, unspecified Status: Acute Assessment and Plan: Chronic. Subjective Date/time seen: 06/08/23 07:20 Interval history: He is alert, but does not know year. No chest pain or sob. Exam Const: General: cooperative, comfortable, obese and other (somnolent) Nutritional Appearance: obese Orientation/consciousness: oriented to person and oriented to place Resp: Auscultation: clear to auscultation bilaterally, no crackles, no rales, no rhonchi and no wheezes Cardio: Rate: regular rate Rhythm: regular rhythm Heart sounds: no murmurs Peripheral pulses: dorsalis pedis present Neuro: General: oriented to person and oriented to place Extrem: Right lower extremity: no edema Left lower extremity: no edema Objective Data Vital Signs Vital Signs: Vital Signs - 24 hr 06/07/23 08:00 06/07/23 08:57 06/07/23 08:00 Temperature 98.1 F Pulse Rate 77 74 Respiratory Rate 18 Blood Pressure 125/65 Pulse Oximetry 95 Oxygen Delivery Room Air 06/07/23 08:00 06/07/23 10:00 06/07/23 11:45 Temperature 97.6 F Pulse Rate 77 74 77 Respiratory Rate 22 H Blood Pressure 157/78 H Pulse Oximetry 94 Oxygen Delivery 06/07/23 12:00 06/07/23 12:00 06/07/23 15:22 Temperature 98.7 F Pulse Rate 81 96 Respiratory Rate 18 Blood Pressure 165/71 H Pulse Oximetry 74 L Oxygen Delivery Room Air 06/07/23 16:00 06/07/23 16:00 06/07/23 20:09 Temperature Pulse Rate 71 74 Respiratory Rate Blood Pressure Pulse Oximetry Oxygen Delivery Room Air 06/07/23 20:13 06/07/23 23:45 06/08/23 03:29 Temperature 97.7 F 97.8 F 97.6 F Pulse Rate 74 72 73 Respiratory Rate 18 18 18 Blood Pressure 177/73 H 184/74 H 175/73 H Pulse Oximetry 96 96 97 Oxygen Delivery Intake/Output Intake/Output: Intake & Output 06/05/23 06/06/23 06/07/23 06/08/23 23:59 23:59 23:59 23:59 Intake Total 2555 2589 2488 738 Output Total 960 180 9678 400 Balance 1630 1839 863 338 Meds/Results Medications: Active Medications Generic Name Dose Route Start Last Admin Trade Name Freq PRN Reason Stop Dose Admin Amlodipine Besylate 5 mg 06/03/23 09:00 06/07/23 08:57 Amlodipine Besylate 5 Mg Tablet BY MOUTH 5 mg DAILY DRISS Administration
[2023-06-08 08:00] LABS: Glucose Point of Care 153 mg/dl (65-105)
[2023-06-08 08:25] LABS: Alanine Aminotransferase 28 U/L (6-50); Albumin Level 2.6 g/dL (3.5-5.1); Alkaline Phosphatase 85 U/L (38-126); Anion Gap 5 mmol/L (8-16); Aspartate Amino Transferase 34 U/L (17-59); Bilirubin,Total 0.5 mg/dL (0.2-1.3); Blood Urea Nitrogen 32 mg/dL (9-20); Carbon Dioxide 27 mmol/L (22-30); Chloride 107 mmol/L (98-107); Estimated CRCL calculation 55 ml/min; Estimated Glomerular Filt Rate 53; Glucose 156 mg/dL (65-110); Potassium 3.3 mmol/L (3.4-5.0); Sodium 139 mmol/L (137-145)
[2023-06-08] MEDS: ENOXAPARIN 40 MG/0.4 ML SYRINGE SUB-Q (08:44)
[2023-06-08] MEDS: lisinopriL 20 MG TABLET PO ×2 (08:44→17:18)
[2023-06-08] MEDS: FAMOTIDINE 20 MG TABLET BY MOUTH (08:44)
[2023-06-08] MEDS: FUROSEMIDE INJ 40 MG/4 ML VIAL IV PUSH ×2 (08:45→17:18)
[2023-06-08] MEDS: carvediloL 6.25 MG TABLET PO ×2 (08:52→20:26)
[2023-06-08] MEDS: amLODIPine BESYLATE 5 MG TABLET BY MOUTH (08:52)
[2023-06-08] MEDS: INSULIN GLARGINE (*BKC) 100 UNITS/ML 30 UNITS SUB-Q (08:53)
--- NOTE | 2023-06-08 09:22 | WPDNEUROPN ---
Progress Note: A&P Assessment and Plan (1) Altered mental status: Code(s): R41.82 - Altered mental status, unspecified Status: Acute Plan Sae Wing is a 82 year old male with a history of diabetes, hypertension, CHF, COPD, hyperlipidemia presenting for altered mental status. Started on meningitic antibiotics and acyclovir. LP was done about two days after antibiotics were initiated. Normal CSF culture and CSF cell count is negative. Elevated protein CSF which may suggest an infectious meningitis/encephalitis presentation. WBC is still slightly elevated but downtrending. Probably worth treating full course of meningitis (2 weeks) since we do not have any other source. Overall mentation seems somewhat improved since admission, but family has concerns regarding his speech and upper extremity strength. His MRI brain from 06/04 was unremarkable, worth repeating since speech has not improved dramatically. He has quite a bit of edema in the upper extremities which may be affecting mobility there but lower extremity strength is age appropriate and symmetric. Subjective Date/time seen: 06/08/23 09:22 Interval history: Sae Wing is a 82 year old male with a history of diabetes, hypertension, CHF, COPD, hyperlipidemia presenting for altered mental status. On day before presentation patient was complaining of chills. Patient seemed to be increasingly more confused throughout the day -- went outside without his cane or jacket. He was also attempting to climb up the kitchen cabinets and the fireplace. was not able to redirect him. Patient previously has had similar behavior with pneumonia in the past. Patient was taken to [place] ED for further evaluation. In the ED his temperature was 100.1 on arrival. His labs were significant for WBC of 11.1. CRP was wnl. UA not suggestive of infection. URI panel was negative. Alcohol and UDS was negative. CT head did not show any acute findings. CXR read as bibasilar airspace opacities suggestive of atelectasis vs pneumonia. CT chest abdomen pelvis did not show any infectious source. He was quite agitated in the ED so he received several doses of Ativan, Haldol, and Versed. He was started on Rocephin, ampicillin, vancomycin, and acyclovir. MRI brain w/o contrast read as normal. LP showed normal cell count but elevated protein of 90. He continues to remain on acyclovir, ampicillin, Rocephin, Vancomycin. CSF bacterial and fungal culture is negative. Blood culture is negative. CSF HSV is pending. Step-son is at bedside today. He feels that patient is worse compared to yesterday. His speech is more garbled and he seems more tired. He was sitting in a chair working with OT this morning, and they feel that he appears more drowsy as well. He is not moving his upper extremities as much with reduced sheet taker strength. Review of Systems Review of Systems: ROS unobtainable: Yes unobtainable due to medical condition and unobtainable due to mental status Exam Const: General: comfortable and no acute distress Eyes: Pupils: Equal, round and reactive pupils present EOM: EOMs intact bilaterally Resp: Effort & Inspection: normal respiratory effort Skin: Other: bruising in both upper extremities Neuro: Other: Drowsy, but easily arousable, oriented to self, knows he is at hospital but thinks he is in [place], knows that it is May 2023. PERRL, R lower face droop, upper extremity strength is 2/5 bilaterally, lower extremity strength is 5/5 with knee extension, flexion, and dorsiflexion, sensation is symmetric bilaterally, Following commands well, able to converse but speech is somewhat garbled. Extrem: General: edema Objective Data Vital Signs Vital Signs: Vital Signs - 24 hr 06/07/23 10:00 06/07/23 11:45 06/07/23 12:00 Temperature 36.4 C Pulse Rate 74 77 Respiratory Rate 22 H Blood Pressure 157/78 H Pulse Oximetry 94 Oxygen Delivery Room Air 06/07/23 1
[2023-06-08 11:48] LABS: Glucose Point of Care 151 mg/dl (65-105)
[2023-06-08 15:07] LABS: Herpes Simplex Type 1 DNA PCR Not Detected (Not Detected); Herpes Simplex Type 2 DNA PCR Not Detected (Not Detected)
[2023-06-08] MEDS: VANCOMYCIN 1,500 MG/NS 500 ML 1,500 MG/500 ML BAG 250 MG IVPB (15:15)
--- NOTE | 2023-06-08 15:34 | PM.IMPN ---
Progress Note: A&P Assessment and Plan (1) Altered mental status: Code(s): R41.82 - Altered mental status, unspecified Status: Acute Assessment and Plan: Patient presents to the ED with AMS on 06/02. He was confused, combative and somnolent at times. Unsure of etiology but consider infectious etiology. Started on vancomycin, ampicillin, ceftriaxone, and acyclovir 06/02 Procalcitonin 0.1. Ammonia <9. B12 620. TSH 1.11. Brain MRI 06/04 showing no acute findings. LP performed 06/04: 6RBC/2WBC 60% lymph, 24% mono. Glucose 118 and Protein 90. BCx Negative CSF Cx NGTD Sputum Cx test not performed WNV IgM negative, VZV IgM negative, CMV negative, VDRL nonreactive, Lyme nonreactive (only 2 bands), HSV PCR not detected Neuro consulted and appreciated their input. 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 Haldol as needed but otherwise no sedating medications. Symptoms waxing/waning but better overall. Continue PT/OT. Stop acyclovir but continue IV abx. (2) Pneumonia: Code(s): J18.9 - Pneumonia, unspecified organism Status: Acute Assessment and Plan: Chest CT showing dependent airspace opacities bilateral lower lobe c/w atelectasis vs PNA. Influenza, RSV and COVID PCR negative. WBC better Mycoplasma IgM, pneumococcal Ag and legionella Ag negative. BCx negative Continue antibiotics. Continue to monitor response (3) Elevated troponin: Code(s): R79.89 - Other specified abnormal findings of blood chemistry Status: Acute Assessment and Plan: Troponin elevated and peaked at 1.57. ECG showed sinus or ectopic atrial tachycardia with Lt BBB. The BBB is old. Cardiology consulted who felt elevated Trop related to infectious process. Echo showing EF 40-45%with Grade I diastolic dysfunction, mild valvular disease. (EF improved per cardiology) No further cardiac workup recommended. 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 Started on Coreg and losartan. 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 The patient's blood glucose was reviewed on 06/08 Glucose remains reasonably well controlled. Continue AccuCheks covering with sliding scale. Hypoglycemia protocol available as needed. Continue to monitor (6) Hypertension: Qualifiers: Hypertension type: unspecified Qualified Code(s): I10 - Essential (primary) hypertension Code(s): I10 - Essential (primary) hypertension Status: Chronic Assessment and Plan: Patient's blood pressure was reviewed on 06/08 Blood pressure better controlled. Continue Norvasc, Coreg and Lisinopril Will continue to follow (7) Obstructive sleep apnea, adult: Code(s): G47.33 - Obstructive sleep apnea (adult) (pediatric) Status: Acute Plan DVT prophylaxis with Lovenox Code status full code Subjective Date/time seen: 06/08/23 15:34 Interval history: 82-year-old male with history of heart failure, hypertension, hyperlipidemia, diabetes, COPD is presenting with altered mental status. More tired today. Still mildly confused. Able to stand with therapy. Family noted patient was confused especially with location Review of Systems Review of Systems: ROS unobtainable: Yes unobtainable due to mental status Exam Narrative: AF 98.0 128/54 6
[2023-06-08 17:06] LABS: Glucose Point of Care 191 mg/dl (65-105)
[2023-06-08] MEDS: POTASSIUM CHLORIDE 20 MEQ PACKET (FOR LIQUID) 40 MEQ PO (18:35)
[2023-06-08] MEDS: ATORVASTATIN 40 MG TABLET PO (20:25)
[2023-06-08 21:15] LABS: Glucose Point of Care 181 mg/dl (65-105)
[2023-06-08] MEDS: hydrALAZINE HCL 20 MG/ML VIAL 10 MG IV PUSH (22:19)
[2023-06-09] VITALS (17 sets, daily range): BP systolic 149–166; BP diastolic 53–66; PULSE 64–73; RESP 20–22; TEMP 36.1–37.2; O2SAT 93–96; BMI 45.3
[2023-06-09] MEDS: AMPICILLIN 2 GM/NS 100 ML 2 GM/100 ML BAG IVPB ×4 (03:28→21:05)
[2023-06-09] MEDS: cefTRIAXone 2 GM/NS 100 ML 2 GM/100 ML BAG IVPB ×2 (04:02→17:36)
[2023-06-09 07:03] LABS: Alanine Aminotransferase 32 U/L (6-50); Albumin Level 2.6 g/dL (3.5-5.1); Alkaline Phosphatase 115 U/L (38-126); Anion Gap 12 mmol/L (8-16); Aspartate Amino Transferase 81 U/L (17-59); Blood Urea Nitrogen 32 mg/dL (9-20); Calcium 8.2 mg/dL (8.4-10.2); Carbon Dioxide 18 mmol/L (22-30); Chloride 109 mmol/L (98-107); Estimated CRCL calculation 60 ml/min; Estimated Glomerular Filt Rate 58; Glucose 143 mg/dL (65-110); Potassium 4.2 mmol/L (3.4-5.0); Sodium 139 mmol/L (137-145)
--- NOTE | 2023-06-09 07:55 | PM.PNCARD ---
Progress Note: A&P Assessment and Plan (1) Elevated troponin: Code(s): R79.89 - Other specified abnormal findings of blood chemistry Status: Acute Assessment and Plan: Peaked at 1.57. Probably related to infection/confusion. Doubt ACS given no symptoms to suggest it. 06/04/23 Echo: EF 45-50%, mild LVH, grade I diastolic dysfunction (E/e' 19), mod LAE, mild (PEACE 1.72 cm2), mod MAC, trace TR. EF improved compared to last echo. No further cardiac workup is needed. (2) Pneumonia: Code(s): J18.9 - Pneumonia, unspecified organism Status: Acute Assessment and Plan: On antibitotics as per hospitalist. 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 (4) Hypertension: Qualifiers: Hypertension type: unspecified Qualified Code(s): I10 - Essential (primary) hypertension Code(s): I10 - Essential (primary) hypertension Status: Chronic Assessment and Plan: Improved. On Amlodipine 5 mg daily, Lisinopril 20 mg BID and on Coreg 6.25 mg BID. Continue Hydralazine 10 mg IV prn. Will sign off. Please call with any questions. (5) Dyslipidemia: Code(s): E78.5 - Hyperlipidemia, unspecified Status: Acute Assessment and Plan: Resume Atorvastatin. (6) Altered mental status: Code(s): R41.82 - Altered mental status, unspecified Status: Acute Assessment and Plan: Improved. Neurology following. Completed LP and MRI brain. (7) Left bundle branch block: Code(s): I44.7 - Left bundle-branch block, unspecified Status: Acute Assessment and Plan: Chronic. Subjective Date/time seen: 06/09/23 07:55 Interval history: He is alert, but does not know year. No chest pain or sob. Exam Const: General: cooperative, comfortable, obese and other (somnolent) Nutritional Appearance: obese Orientation/consciousness: oriented to person and oriented to place Resp: Auscultation: clear to auscultation bilaterally, no crackles, no rales, no rhonchi and no wheezes Cardio: Rate: regular rate Rhythm: regular rhythm Heart sounds: no murmurs Peripheral pulses: dorsalis pedis present Neuro: General: oriented to person and oriented to place Extrem: Right upper extremity: edema Left upper extremity: edema Right lower extremity: no edema Left lower extremity: no edema Objective Data Vital Signs Vital Signs: Vital Signs - 24 hr 06/08/23 08:41 06/08/23 08:00 06/08/23 11:39 Temperature 98.0 F Pulse Rate 67 Respiratory Rate 22 H Blood Pressure 128/54 L Pulse Oximetry 93 93 Oxygen Delivery Room Air Room Air 06/08/23 15:55 06/08/23 12:00 06/08/23 16:00 Temperature 97.8 F Pulse Rate 76 Respiratory Rate Blood Pressure 147/62 H Pulse Oximetry 93 Oxygen Delivery Room Air Room Air 06/08/23 20:26 06/08/23 20:00 06/08/23 20:00 Temperature 97.1 F L Pulse Rate 68 69 68 Respiratory Rate 22 H Blood Pressure 149/61 H Pulse Oximetry 93 Oxygen Delivery 06/08/23 22:00 06/08/23 20:00 06/09/23 00:00 Temperature 96.9 F L Pulse Rate 68 69 70 Respiratory Rate 22 H 20 Blood Pressure 165/53 H Pulse Oximetry 93 93 Oxygen Delivery Room Air 06/09/23 00:00 06/09/23 00:00 06/09/23 02:00 Temperature Pulse Rate 70 68 69 Respiratory Rate 20 Blood Pressure Pulse Oximetry 93 Oxygen Delivery Room Air 06/09/23 04:00 06/09/23 04:00 06/09/23 04:00 Temperature 97.6 F Pulse Rate 72 68 68 Respiratory Rate 22 H 22 H Blood Pressure 149/66 H Pulse Oximetry 93 93 Oxygen Delivery Room Air 06/09/23 05:22 06/09/23 07:26 Temperature 98.6 F Pulse Rate 66 70 Respiratory Rate 20 Blood Pressure 154/65 H Pulse Oximetry 94 Oxygen Delivery Intake/Output Intake/Output
[2023-06-09 08:04] LABS: Glucose Point of Care 154 mg/dl (65-105)
[2023-06-09] MEDS: carvediloL 6.25 MG TABLET PO ×2 (08:49→21:04)
[2023-06-09] MEDS: FUROSEMIDE INJ 40 MG/4 ML VIAL IV PUSH ×2 (08:49→17:35)
[2023-06-09] MEDS: lisinopriL 20 MG TABLET PO ×2 (08:49→17:35)
[2023-06-09] MEDS: ENOXAPARIN 40 MG/0.4 ML SYRINGE SUB-Q (08:49)
[2023-06-09] MEDS: FAMOTIDINE 20 MG TABLET BY MOUTH (08:50)
[2023-06-09] MEDS: amLODIPine BESYLATE 5 MG TABLET BY MOUTH (08:55)
[2023-06-09] MEDS: INSULIN GLARGINE (*BKC) 100 UNITS/ML 30 UNITS SUB-Q (08:56)
--- NOTE | 2023-06-09 09:41 | WPDNEUROPN ---
Progress Note: A&P Assessment and Plan (1) Altered mental status: Code(s): R41.82 - Altered mental status, unspecified Status: Acute Plan Sae Wing is a 82 year old male with a history of diabetes, hypertension, CHF, COPD, hyperlipidemia presenting for altered mental status. Started on meningitic antibiotics and acyclovir. LP was done about two days after antibiotics were initiated. Normal CSF culture and CSF cell count is negative. Elevated protein CSF which may suggest an infectious meningitis/encephalitis presentation. WBC is still slightly elevated but downtrending. Probably worth treating full course of meningitis (2 weeks) since we do not have any other source. Overall mentation seems somewhat improved since admission, but family has concerns regarding his speech and upper extremity strength. His MRI brain from 06/04 was unremarkable, and repeat MRI brain from 06/08 did not show any acute findings either. Mental status seems to be worse over the past two days. No obvious source of infection found. No significant improvement despite antibiotics. Consider autoimmune encephalitis. Will send serum autoimmune encephalitis panel. Consider starting high dose steroids if no improvement tomorrow. Subjective Date/time seen: 06/09/23 09:41 Interval history: Sae Wing is a 82 year old male with a history of diabetes, hypertension, CHF, COPD, hyperlipidemia presenting for altered mental status. On day before presentation patient was complaining of chills. Patient seemed to be increasingly more confused throughout the day -- went outside without his cane or jacket. He was also attempting to climb up the kitchen cabinets and the fireplace. was not able to redirect him. Patient previously has had similar behavior with pneumonia in the past. Patient was taken to [facility] ED for further evaluation. In the ED his temperature was 100.1 on arrival. His labs were significant for WBC of 11.1. CRP was wnl. UA not suggestive of infection. URI panel was negative. Alcohol and UDS was negative. CT head did not show any acute findings. CXR read as bibasilar airspace opacities suggestive of atelectasis vs pneumonia. CT chest abdomen pelvis did not show any infectious source. He was quite agitated in the ED so he received several doses of Ativan, Haldol, and Versed. He was started on Rocephin, ampicillin, vancomycin, and acyclovir. Initial MRI brain w/o contrast read as normal. LP showed normal cell count but elevated protein of 90. He was initially on acycylovir, ampicillin, Rocephin, Vancomycin. CSF bacterial and fungal culture is negative. Blood culture is negative. WNV IgM negative, VZV IgM negative, CMV negative, VDRL nonreactive, Lyme nonreactive, HSV PCR not detected. Acyclovir discontinued, antibiotics continued. MRI brain repeated yesterday which showed old infarcts in L cerebellum and L caudate but no acute findings. at bedside today, feels like patient is worse today. Review of Systems Review of Systems: ROS unobtainable: Yes unobtainable due to medical condition and unobtainable due to mental status Exam Const: General: comfortable and no acute distress Eyes: Pupils: Equal, round and reactive pupils present EOM: EOMs intact bilaterally Resp: Effort & Inspection: normal respiratory effort Skin: Other: bruising in both upper extremities Neuro: Other: Drowsy, but arousable, oriented to self, thinks he is in [place]. PERRL, R lower face droop, upper extremity strength is 2/5 bilaterally, equal antigravity strength in lower extremities, sensation is symmetric bilaterally, speech is dysarthric and garbbled. Extrem: General: edema Objective Data Vital Signs Vital Signs: Vital Signs - 24 hr 06/08/23 11:39 06/08/23 15:55 06/08/23 12:00 Temperature 36.7 C 36.6 C Pulse Rate 67 76 Respiratory Rate 22 H Blood Pressure 128/54 L 147/62 H Pulse Oximetry 93 93 Oxygen Delivery Room Air
[2023-06-09 11:38] LABS: Glucose Point of Care 173 mg/dl (65-105)
--- NOTE | 2023-06-09 13:20 | PCSTNOTE ---
Bedside swallowing evaluation completed. Patient seen bedside, with head of bed elevated to achieve upright positioning. and other family members present. Patient semi alert when seen by this DRAFTER this morning and again this afternoon. Cursory oral peripheral examination completed, results within functional limits. Patient experienced a witnessed choking episode yesterday. Currently patient is receiving regular diet texture (level 7) and thin liquids. During this evaluation patient was given water by straw which triggered a coughing episode. Regular texture food (vanilla wafers) were eaten without difficulty. However, due to prior choking episode and patient being easily fatigued, modified diet texture is recommended: soft and bite sized (level 6) and mildly thickened liquids (level 2). Swallowing precaution recommendations placed in chart and discussed with family and patient. Please note that silent aspiration cannot be ruled out at bedside and can be evaluated with a modified barium swallow study. No further speech therapy is recommended for this patient. Thank you for this referral.
[2023-06-09 13:25] LABS: Vancomycin Trough 16.9 ug/mL (10.0-20.0)
[2023-06-09] MEDS: VANCOMYCIN 1,500 MG/NS 500 ML 1,500 MG/500 ML BAG 250 MG IVPB (14:39)
--- NOTE | 2023-06-09 14:41 | PM.IMPN ---
Progress Note: A&P Assessment and Plan (1) Altered mental status: Code(s): R41.82 - Altered mental status, unspecified Status: Acute Assessment and Plan: Patient presents to the ED with AMS on 06/02. He was confused, combative and somnolent at times. Unsure of etiology but consider infectious etiology. Started on vancomycin, ampicillin, ceftriaxone, and acyclovir 06/02 Procalcitonin 0.1. Ammonia <9. B12 620. TSH 1.11. Brain MRI 06/04 showing no acute findings. LP performed 06/04: 6RBC/2WBC 60% lymph, 24% mono. Glucose 118 and Protein 90. BCx Negative CSF Cx NGTD Sputum Cx test not performed WNV IgM negative, VZV IgM negative, CMV negative, VDRL nonreactive, Lyme nonreactive (only 2 bands) HSV PCR not detected so acyclovir stopped Neuro consulted and appreciated their input. 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 Not on sedating medications. Symptoms waxing/waning but better overall. Speech therapy consult after a witnessed choking episodes. Bedside evaluation showing patient needs soft and bite sized, level2 thickened liquids Has untreated SOLO - check ABG Continue PT/OT. Continue IV abx. (2) Pneumonia: Code(s): J18.9 - Pneumonia, unspecified organism Status: Acute Assessment and Plan: Chest CT showing dependent airspace opacities bilateral lower lobe c/w atelectasis vs PNA. Influenza, RSV and COVID PCR negative. WBC better Mycoplasma IgM, pneumococcal Ag and legionella Ag negative. BCx negative Remains on room air Continue antibiotics. (3) Elevated troponin: Code(s): R79.89 - Other specified abnormal findings of blood chemistry Status: Acute Assessment and Plan: Troponin elevated and peaked at 1.57. ECG showed sinus or ectopic atrial tachycardia with Lt BBB. The BBB is old. Cardiology consulted who felt elevated Trop related to infectious process. Echo showing EF 40-45%with Grade I diastolic dysfunction, mild valvular disease. (EF improved per cardiology) Tele showing NSVT. Potassium okay. Check mag level Notify cardiology. 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 Edema also related to excessive IV fluids from the IV abx. Started on Coreg and losartan. 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 The patient's blood glucose was reviewed on 06/09 Glucose remains reasonably well controlled. Continue AccuCheks covering with sliding scale. Hypoglycemia protocol available as needed. Continue to monitor (6) Hypertension: Qualifiers: Hypertension type: unspecified Qualified Code(s): I10 - Essential (primary) hypertension Code(s): I10 - Essential (primary) hypertension Status: Chronic Assessment and Plan: Patient's blood pressure was reviewed on 06/09 Blood pressure elevated at times. Continue Norvasc, Coreg and Lisinopril Will continue to follow (7) Obstructive sleep apnea, adult: Code(s): G47.33 - Obstructive sleep apnea (adult) (pediatric) Status: Acute Assessment and Plan: Has SOLO but untreated. Check ABG Plan Metabolic acidosis - serum bicarb low at 18. Could be random variation but will check lactic level and BHO. ABG also ordered. DVT prophylaxis with Lovenox Code status full code Subjective Date/time seen:
[2023-06-09 15:38] LABS: Alveolar/Arterial O2 Gradient 45.9 mmHg; Base Excess ABG 1.3 mEq/l (+/-2.0); Fractional Inspired Oxygen 21 %; HCO3 ABG 24.9 mEq/l (22.0-26.0); Oxygen Content ABG 14.2 %vol (16.0-22.0); Oxygen Saturation ABG 92.9 % (95.0-100.0); PCO2 ABG 35.6 mmHg (35.0-45.0); PO2 ABG 61.2 mmHg (80.0-100.0); PO2 FiO2 Ratio Arterial Blood 2.91 %; Total Hemoglobin 11.1 g/dL (12.0-18.0); pH ABG 7.462 (7.350-7.450)
[2023-06-09 15:39] LABS: Device ROOM AIR; Modified Allen's Test Pass; Site Drawn RIGHT RADIAL
[2023-06-09 16:15] LABS: Glucose Point of Care 158 mg/dl (65-105)
[2023-06-09 16:17] LABS: Lactic Acid Reflex 0.7 mmol/L (0.7-2.0); Magnesium 1.7 mg/dL (1.6-2.3)
[2023-06-09 16:22] LABS: Beta-Hydroxybutyrate/Acetoacetate 0.11 mmol/L (0.02-0.27)
--- NOTE | 2023-06-09 17:46 | PC.NURSE ---
Called Dr. Dawn in regards to a 23 beat run of [employer]. Magnesium was 1.7. Per Dr. Dawn order 2GM of Mg. This was already ordered by Dr. Guillaume.
[2023-06-09] MEDS: BISACODYL 10 MG SUPPOSITORY RECTAL (20:50)
[2023-06-09] MEDS: MAGNESIUM SULF 2 GM/WATER 50ML 2 GM/50 ML BAG IVPB (21:00)
[2023-06-09 21:03] LABS: Glucose Point of Care 114 mg/dl (65-105)
[2023-06-09] MEDS: ATORVASTATIN 40 MG TABLET PO (21:04)
[2023-06-09] MEDS: DOCUSATE SODIUM 100 MG CAPSULE PO (21:04)
[2023-06-10] VITALS (17 sets, daily range): BP systolic 150–163; BP diastolic 55–66; PULSE 61–74; RESP 20–22; TEMP 36.1–37.2; O2SAT 92–98
[2023-06-10] MEDS: AMPICILLIN 2 GM/NS 100 ML 2 GM/100 ML BAG IVPB ×6 (00:58→22:16)
[2023-06-10] MEDS: cefTRIAXone 2 GM/NS 100 ML 2 GM/100 ML BAG IVPB ×2 (03:24→17:52)
[2023-06-10] MEDS: CENTRAL LINE FLUSH 20 ML IV PUSH (04:14)
[2023-06-10 04:24] LABS: Basophils Percent Auto 0.4 % (0.2-1.2); Eosinophils Absolute Auto 0.7 K/mm3 (0-0.3); Eosinophils Percent Auto 6.6 % (0-4.4); Hematocrit 30.8 % (42.0-52.0); Hemoglobin 9.7 g/dL (14.0-18.0); Immature Granulocyte Absolute 0.05 K/mm3 (0.00-0.031); Immature Granulocyte Percent A 0.5 % (0-0.5); Lymphocytes Absolute Auto 1.23 K/mm3 (0.9-3.2); Lymphocytes Percent Auto 11.7 % (18.3-44.2); Mean Corpuscular HGB Conc 31.5 g/dl (32-36); Mean Corpuscular Volume 92.2 fl (80-100); Mean Platelet Volume 9.2 fl (7.4-10.4); Monocytes Absolute Auto 1.1 K/mm3 (0.1-0.6); Monocytes Percent Auto 10.5 % (2.6-8.5); Neutrophils Absolute Auto 7.4 K/mm3 (1.3-6.7); Neutrophils Percent Auto 70.3 % (45.5-73.1); Platelet Count Result 273 k/mm3 (150-375); Red Blood Count 3.34 M/mm3 (4.6-6.20); Red Cell Distribution Width 13.3 % (11.5-14.5); White Blood Count 10.5 K/mm3 (4.5-10.0)
[2023-06-10 04:35] LABS: Alanine Aminotransferase 25 U/L (6-50); Albumin Level 2.4 g/dL (3.5-5.1); Alkaline Phosphatase 79 U/L (38-126); Anion Gap 4 mmol/L (8-16); Aspartate Amino Transferase 30 U/L (17-59); Bilirubin,Total 0.4 mg/dL (0.2-1.3); Blood Urea Nitrogen 28 mg/dL (9-20); Calcium 8.1 mg/dL (8.4-10.2); Carbon Dioxide 30 mmol/L (22-30); Chloride 107 mmol/L (98-107); Estimated CRCL calculation 65 ml/min; Estimated Glomerular Filt Rate > 60; Glucose 107 mg/dL (65-110); Magnesium 1.9 mg/dL (1.6-2.3); Phosphorus 3.5 mg/dL (2.5-4.5); Potassium 2.9 mmol/L (3.4-5.0); Sodium 141 mmol/L (137-145)
[2023-06-10] MEDS: CENTRAL LINE FLUSH 10 ML IV PUSH ×3 (05:34→22:17)
--- NOTE | 2023-06-10 07:41 | PM.PNCARD ---
Progress Note: A&P Assessment and Plan (1) Elevated troponin: Code(s): R79.89 - Other specified abnormal findings of blood chemistry Status: Acute Assessment and Plan: Peaked at 1.57. Probably related to infection/confusion. Doubt ACS given no symptoms to suggest it. 06/04/23 Echo: EF 45-50%, mild LVH, grade I diastolic dysfunction (E/e' 19), mod LAE, mild (PEACE 1.72 cm2), mod MAC, trace TR. EF improved compared to last echo. No further cardiac workup is needed. (2) Pneumonia: Code(s): J18.9 - Pneumonia, unspecified organism Status: Acute Assessment and Plan: On antibitotics as per hospitalist. (3) Insulin dependent type 2 diabetes mellitus: Code(s): E11.9 - Type 2 diabetes mellitus without complications; Z79.4 - senior living (current) use of insulin Status: Acute Assessment and Plan: Managed as per hospitalits. (4) Hypertension: Qualifiers: Hypertension type: unspecified Qualified Code(s): I10 - Essential (primary) hypertension Code(s): I10 - Essential (primary) hypertension Status: Chronic Assessment and Plan: Improved but still high. On Amlodipine 5 mg daily, Lisinopril 20 mg BID and on Coreg 6.25 mg BID. Continue Hydralazine 10 mg IV prn. Start Spironolactone 25 mg daily. Monitor renal function and potassium. (5) Dyslipidemia: Code(s): E78.5 - Hyperlipidemia, unspecified Status: Acute Assessment and Plan: Resume Atorvastatin. (6) Altered mental status: Code(s): R41.82 - Altered mental status, unspecified Status: Acute Assessment and Plan: Improved. Neurology following. Completed LP and MRI brain. (7) Left bundle branch block: Code(s): I44.7 - Left bundle-branch block, unspecified Status: Acute Assessment and Plan: Chronic. (8) NSVT (nonsustained ventricular tachycardia): Code(s): I47.29 - Other ventricular tachycardia Status: Acute Assessment and Plan: Nurse reports on 06/09/23 had 23 beat run of NSVT. I could not find the strip on potline monitor or in chart. Nonetheless, it is non-sustained. He is on Coreg. Mag is low normal at 1.7. Mag [place] 2 gm IV given and Mag is 1.9 today. Potassium is low at 2.9 due to Lasix. Need to replete potassium level. (9) Combined systolic and diastolic congestive heart failure: Code(s): I50.40 - Unspecified combined systolic (congestive) and diastolic (congestive) heart failure Status: Acute Assessment and Plan: 06/04/23 Echo: EF 45-50%, mild LVH, grade I diastolic dysfunction (E/e' 19), mod LAE, mild (PEACE 1.72 cm2), mod MAC, trace TR. EF improved compared to last echo. On Lasix 40 mg IV BID due to significant edema of upper extremities and mild pleural effusion. Add Spironolactone 25 mg daily. Subjective Date/time seen: 06/10/23 07:41 Interval history: He is alert, but does not know year. No chest pain or sob. Exam Const: General: cooperative, comfortable, obese and other (somnolent) Nutritional Appearance: obese Orientation/consciousness: oriented to person and oriented to place Resp: Auscultation: clear to auscultation bilaterally, no crackles, no rales, no rhonchi and no wheezes Cardio: Rate: regular rate Rhythm: regular rhythm Heart sounds: no murmurs Peripheral pulses: dorsalis pedis present Neuro: General: oriented to person and oriented to place Extrem: Right upper extremity: edema Left upper extremity: edema Right lower extremity: no edema Left lower extremity: no edema Objective Data Vital Signs Vital Signs: Vital Signs - 24 hr 06/09/23 08:00 06/09/23 11:32 06/09/23 08:00 Temperature 98.4 F Pulse Rate 73 66 Respiratory Rate 22 H Blood Pressure 166/61 H Pulse Oximetry 95 Oxygen Delivery Room Air 06/09/23 12:00 06/09/23 15:33 06/09/23 10:00 Temperature 99.0 F Pulse Rate 65 70 Respiratory Rate 22 H Blood Pressure 151/64 H Pu
[2023-06-10] MEDS: KCL 40 MEQ/WATER 100 ML 100 ML 25 ML IVPB (09:35)
[2023-06-10] MEDS: MAGNESIUM SULF 2 GM/WATER 50ML 2 GM/50 ML BAG IVPB (09:36)
[2023-06-10 09:41] LABS: Glucose Point of Care 102 mg/dl (65-105)
[2023-06-10] MEDS: SPIRONOLACTONE 25 MG TABLET PO (09:41)
[2023-06-10] MEDS: FAMOTIDINE 20 MG TABLET BY MOUTH (09:41)
[2023-06-10] MEDS: FUROSEMIDE INJ 40 MG/4 ML VIAL IV PUSH ×2 (09:41→17:46)
[2023-06-10] MEDS: ENOXAPARIN 40 MG/0.4 ML SYRINGE SUB-Q (09:41)
[2023-06-10] MEDS: DOCUSATE SODIUM 100 MG CAPSULE PO (09:41)
[2023-06-10] MEDS: lisinopriL 20 MG TABLET PO ×2 (09:41→17:56)
[2023-06-10] MEDS: amLODIPine BESYLATE 5 MG TABLET BY MOUTH (09:42)
[2023-06-10] MEDS: carvediloL 6.25 MG TABLET PO ×2 (09:42→22:17)
--- NOTE | 2023-06-10 09:43 | WPDNEUROPN ---
Progress Note: A&P Assessment and Plan (1) Altered mental status: Code(s): R41.82 - Altered mental status, unspecified Status: Acute Plan Sae Wing is a 82 year old male with a history of diabetes, hypertension, CHF, COPD, hyperlipidemia presenting for altered mental status. Started on meningitic antibiotics and acyclovir. LP was done about two days after antibiotics were initiated. Normal CSF culture and CSF cell count is negative. Elevated protein CSF which was concerning for possible infectious meningitis/encephalitis presentation. WBC is still slightly elevated but downtrending. Overall mentation seems somewhat improved since admission, but he is still not at baseline, having slurred speech and swallowing issues. His MRI brain from 06/04 was unremarkable, and repeat MRI brain from 06/08 did not show any acute findings either. No obvious source of infection found. No significant improvement despite antibiotics. Consider autoimmune encephalitis -- possibly brainstem encephalitis? -- he has dysarthria, dysphagia and alteration in mental status. CSF was mildly abnormal with elevated protein. MRI brain unrevealing. There is a good percentage of these patients that have negative CSF and imaging. Sent autoimmune encephalitis panel, which unfortunately will take a few weeks to come back. There are no set guidelines on treatment but immunotherapy with IVIG, steroids, and plasmapheresis have all been used with success. I would prefer to use IVIG in this setting since the high dose steroids could cause his mental status to worsen. Plasmapheresis would be much more invasive, and we do not have the capabilities here at out facility. I spoke with and step son about these options, they are agreeable to start IVIG. I did discuss that there is an increase risk of abnormal clotting with IVIG. They understand and would still like to move forward with treatment. Will check IgA level. If appropriate, will start IVIG 0.4g/kg/day x 5 days. Subjective Date/time seen: 06/10/23 09:43 Interval history: Sae Wing is a 82 year old male with a history of diabetes, hypertension, CHF, COPD, hyperlipidemia presenting for altered mental status. On day before presentation patient was complaining of chills. Patient seemed to be increasingly more confused throughout the day -- went outside without his cane or jacket. He was also attempting to climb up the kitchen cabinets and the fireplace. was not able to redirect him. Patient previously has had similar behavior with pneumonia in the past. Patient was taken to [facility] ED for further evaluation. In the ED his temperature was 100.1 on arrival. His labs were significant for WBC of 11.1. CRP was wnl. UA not suggestive of infection. URI panel was negative. Alcohol and UDS was negative. CT head did not show any acute findings. CXR read as bibasilar airspace opacities suggestive of atelectasis vs pneumonia. CT chest abdomen pelvis did not show any infectious source. He was quite agitated in the ED so he received several doses of Ativan, Haldol, and Versed. He was started on Rocephin, ampicillin, vancomycin, and acyclovir. Initial MRI brain w/o contrast read as normal. LP showed normal cell count but elevated protein of 90. He was initially on acyclovir, ampicillin, Rocephin, Vancomycin. CSF bacterial and fungal culture is negative. Blood culture is negative. WNV IgM negative, VZV IgM negative, CMV negative, VDRL nonreactive, Lyme nonreactive, HSV PCR not detected. Acyclovir discontinued, antibiotics continued. 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 He continues to have sluured speech and swallow dysfunction as well. MRI cervical spine ordered due to upper extremity weakness. Review of Systems Review of Systems: ROS unobtainable: Yes unobtainable due to medical condition and unobtainable due to mental status Exam Const: General: comfortable and no
[2023-06-10] MEDS: INSULIN GLARGINE (*BKC) 100 UNITS/ML 30 UNITS SUB-Q (10:12)
[2023-06-10 12:05] LABS: Glucose Point of Care 94 mg/dl (65-105)
--- NOTE | 2023-06-10 13:01 | PM.IMPN ---
Progress Note: A&P Assessment and Plan (1) Altered mental status: Code(s): R41.82 - Altered mental status, unspecified Status: Acute Assessment and Plan: Patient presents to the ED with AMS on 06/02. He was confused, combative and somnolent at times. Unsure of etiology but consider infectious etiology. Started on vancomycin, ampicillin, ceftriaxone, and acyclovir 06/02 Procalcitonin 0.1. Ammonia <9. B12 620. TSH 1.11. Brain MRI 06/04 showing no acute findings. LP performed 06/04: 6RBC/2WBC 60% lymph, 24% mono. Glucose 118 and Protein 90. BCx Negative CSF Cx Negative Sputum Cx test not performed WNV IgM negative, VZV IgM negative, CMV negative, VDRL nonreactive, Lyme nonreactive (only 2 bands) HSV PCR not detected so acyclovir stopped Neuro consulted and appreciated their input. 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 Not on sedating medications. Symptoms waxing/waning but better overall. Speech therapy consult after a witnessed choking episodes. Bedside evaluation showing patient needs soft and bite sized, level2 thickened liquids Has untreated SOLO but ABG showing 7.46/36/61 RA Etiology unclear but consider partially treated meningitis (LP performed 2 days after abx started) vs autoimmune encephilitis vs occult CVA Continue PT/OT. Continue IV abx. IVIg being considered (2) Pneumonia: Code(s): J18.9 - Pneumonia, unspecified organism Status: Acute Assessment and Plan: Chest CT showing dependent airspace opacities bilateral lower lobe c/w atelectasis vs PNA. Influenza, RSV and COVID PCR negative. Mycoplasma IgM, pneumococcal Ag and legionella Ag negative. BCx negative Remains on room air WBC better Continue antibiotics. (3) Elevated troponin: Code(s): R79.89 - Other specified abnormal findings of blood chemistry Status: Acute Assessment and Plan: Troponin elevated and peaked at 1.57. ECG showed sinus or ectopic atrial tachycardia with Lt BBB. The BBB is old. Cardiology consulted who felt elevated Trop related to infectious process. Echo showing EF 40-45%with Grade I diastolic dysfunction, mild valvular disease. (EF improved per cardiology) Tele showing prolonged NSVT on 06/09 and Cardiology was made aware. There has been no recurrence. Potassium low so will replace. Mag slightly below 2.0 so will replace as well Follow on tele (4) Combined systolic and diastolic congestive heart failure: Code(s): I50.40 - Unspecified combined systolic (congestive) and diastolic (congestive) heart failure Status: Acute Assessment and Plan: Echo showing EF 40-45%with Grade I diastolic dysfunction, mild valvular disease More edematous but feel this is more dependent edema from not moving his hands much. Edema also related to excessive IV fluids from the IV abx. Continue Coreg and losartan. 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 The patient's blood glucose was reviewed on 06/10 Glucose remains reasonably well controlled. Continue AccuCheks covering with sliding scale. Hypoglycemia protocol available as needed. Continue to monitor closely (6) Hypertension: Qualifiers: Hypertension type: unspecified Qualified Code(s): I10 - Essential (primary) hypertension Code(s): I10 - Essential (primary) hypertension Status: Chronic Assessment and Plan: Patient's blood pressure was reviewed on 06/10 Blood pressure elevated at times. Continue Norvasc, Coreg and Lisinopril Will continue to follow (7) Obstructive sleep apnea, adult: Code(s): G47.33 - Obstructive sleep apnea
--- NOTE | 2023-06-10 13:26 | PCPTNOTE ---
Attemtped treatment at 13:00, pt was sleeping and multiple attemts to awaken pt. Pt could not wake and grew increasing frustrated with ea attempt. Will attempt later this afternoon.
[2023-06-10] MEDS: VANCOMYCIN 1,500 MG/NS 500 ML 1,500 MG/500 ML BAG 250 MG IVPB (14:31)
[2023-06-10 15:55] LABS: Glucose Point of Care 79 mg/dl (65-105)
[2023-06-10] MEDS: HEPARIN SODIUM 5,000 UNITS/ML VIAL 7500 UNITS IV PUSH (17:47)
[2023-06-10] MEDS: HEPARIN SOD/D5W 100 UNITS/ML 25,000 UNITS/250 ML BAG 15 UNITS IV CONT (17:48)
[2023-06-10 18:03] LABS: INR 1.1; Prothrombin Time 15.1 Seconds (11.1-14.7)
[2023-06-10 18:04] LABS: Partial Thromboplastin Time 40.1 SECONDS (22.3-36.8)
[2023-06-10 20:11] LABS: Glucose Point of Care 108 mg/dl (65-105)
[2023-06-10] MEDS: ATORVASTATIN 40 MG TABLET PO (22:16)
[2023-06-11] VITALS (16 sets, daily range): BP systolic 96–157; BP diastolic 45–70; PULSE 56–84; RESP 18–24; TEMP 36.5–36.6; O2SAT 95–100
[2023-06-11] MEDS: AMPICILLIN 2 GM/NS 100 ML 2 GM/100 ML BAG IVPB ×6 (00:07→20:27)
[2023-06-11 01:13] LABS: Immunoglobulin A 257 mg/dL (70-400); Immunoglobulin G 762 mg/dL (700-1600); Immunoglobulin M 78 mg/dL (40-230)
[2023-06-11 01:17] LABS: Partial Thromboplastin Time 135.2 SECONDS (22.3-36.8)
[2023-06-11] MEDS: cefTRIAXone 2 GM/NS 100 ML 2 GM/100 ML BAG IVPB ×2 (04:56→16:28)
[2023-06-11] MEDS: CENTRAL LINE FLUSH 20 ML IV PUSH (06:10)
[2023-06-11] MEDS: CENTRAL LINE FLUSH 10 ML IV PUSH ×3 (06:26→20:28)
[2023-06-11 06:49] LABS: Hematocrit 29.5 % (42.0-52.0); Mean Corpuscular HGB Conc 30.5 g/dl (32-36); Mean Corpuscular Hemoglobin 28.8 pg (26-34); Mean Corpuscular Volume 94.2 fl (80-100); Mean Platelet Volume 9.7 fl (7.4-10.4); Platelet Count Result 327 k/mm3 (150-375); Red Blood Count 3.13 M/mm3 (4.6-6.20); Red Cell Distribution Width 13.6 % (11.5-14.5); White Blood Count 11.2 K/mm3 (4.5-10.0)
[2023-06-11 07:23] LABS: Alanine Aminotransferase 22 U/L (6-50); Albumin Level 2.4 g/dL (3.5-5.1); Alkaline Phosphatase 80 U/L (38-126); Anion Gap 6 mmol/L (8-16); Aspartate Amino Transferase 32 U/L (17-59); Bilirubin,Total 0.4 mg/dL (0.2-1.3); Blood Urea Nitrogen 27 mg/dL (9-20); Calcium 8.1 mg/dL (8.4-10.2); Carbon Dioxide 30 mmol/L (22-30); Chloride 107 mmol/L (98-107); Estimated CRCL calculation 59 ml/min; Estimated Glomerular Filt Rate 58; Glucose 57 mg/dL (65-110); Magnesium 2.1 mg/dL (1.6-2.3); Potassium 3.1 mmol/L (3.4-5.0); Sodium 143 mmol/L (137-145)
--- NOTE | 2023-06-11 07:57 | PM.PNCARD ---
Progress Note: A&P Assessment and Plan (1) Elevated troponin: Code(s): R79.89 - Other specified abnormal findings of blood chemistry Status: Acute Assessment and Plan: Peaked at 1.57. Probably related to infection/confusion. Doubt ACS given no symptoms to suggest it. 06/04/23 Echo: EF 45-50%, mild LVH, grade I diastolic dysfunction (E/e' 19), mod LAE, mild (PEACE 1.72 cm2), mod MAC, trace TR. EF improved compared to last echo. No further cardiac workup is needed. (2) Pneumonia: Code(s): J18.9 - Pneumonia, unspecified organism Status: Acute Assessment and Plan: On antibitotics as per hospitalist. (3) Insulin dependent type 2 diabetes mellitus: Code(s): E11.9 - Type 2 diabetes mellitus without complications; Z79.4 - long-term (current) use of insulin Status: Acute Assessment and Plan: Managed as per hospitalits. (4) Hypertension: Qualifiers: Hypertension type: unspecified Qualified Code(s): I10 - Essential (primary) hypertension Code(s): I10 - Essential (primary) hypertension Status: Chronic Assessment and Plan: Improved. On Amlodipine 5 mg daily, Lisinopril 20 mg BID and on Coreg 6.25 mg BID. Continue Hydralazine 10 mg IV prn. On Spironolactone 25 mg daily. Monitor renal function and potassium. Monitor BP. (5) Dyslipidemia: Code(s): E78.5 - Hyperlipidemia, unspecified Status: Acute Assessment and Plan: Resume Atorvastatin. (6) Altered mental status: Code(s): R41.82 - Altered mental status, unspecified Status: Acute Assessment and Plan: Improved. Neurology following. Completed LP and MRI brain. (7) Left bundle branch block: Code(s): I44.7 - Left bundle-branch block, unspecified Status: Acute Assessment and Plan: Chronic. (8) NSVT (nonsustained ventricular tachycardia): Code(s): I47.29 - Other ventricular tachycardia Status: Acute Assessment and Plan: Nurse reports on 06/09/23 had 23 beat run of NSVT. I could not find the strip on groundwater monitoring technician or in chart. Nonetheless, it is non-sustained. He is on Coreg. Mag is low normal at 1.7. Mag [place] 2 gm IV given Potassium is low at 3.1 due to Lasix. Need to replete potassium level. (9) Combined systolic and diastolic congestive heart failure: Code(s): I50.40 - Unspecified combined systolic (congestive) and diastolic (congestive) heart failure Status: Acute Assessment and Plan: 06/04/23 Echo: EF 45-50%, mild LVH, grade I diastolic dysfunction (E/e' 19), mod LAE, mild (PEACE 1.72 cm2), mod MAC, trace TR. EF improved compared to last echo. On Lasix 40 mg IV BID due to significant edema of upper extremities and mild pleural effusion. On Spironolactone 25 mg daily. (10) Left upper extremity deep vein thrombosis: Code(s): I82.622 - Acute embolism and thrombosis of deep veins of left upper extremity Status: Acute Assessment and Plan: Changed Lovenox to heparin drip. Subjective Date/time seen: 06/11/23 07:57 Interval history: He is alert, but does not know year. No chest pain or sob. Exam Const: General: cooperative, comfortable, obese and other (somnolent) Nutritional Appearance: obese Orientation/consciousness: oriented to person and oriented to place Resp: Auscultation: clear to auscultation bilaterally, no crackles, no rales, no rhonchi and no wheezes Cardio: Rate: regular rate Rhythm: regular rhythm Heart sounds: no murmurs Peripheral pulses: dorsalis pedis present Neuro: General: oriented to person and oriented to place Extrem: Right upper extremity: edema Left upper extremity: edema Right lower extremity: no edema Left lower extremity: no edema Objective Data Vital Signs Vital Signs: Vital Signs - 24 hr 06/10/23 08:50 06/10/23 09:42 06/10/23 08:00 Temperature 98.9 F Pulse Rate 64 74 66 Respiratory Rate 20 Blood Pressure 160/66
[2023-06-11 08:01] LABS: Platelet Estimate Adequate (Adequate); Total Cells Counted 100
[2023-06-11 08:02] LABS: Basophils Absolute Manual 0.11 K/mm3 (0.0-0.1); Basophils Percent Manual 1 % (0-1); Eosinophils Absolute Manual 0.56 K/mm3 (0.02-0.5); Eosinophils Percent Manual 5 % (0-4); Lymphocytes Absolute Manual 1.56 K/mm3 (1.1-4.5); Lymphocytes Percent Manual 14 % (18-44); Monocytes Percent Manual 9 % (3-9); Neutrophils Percent Manual 71 % (46-73); Schistocytes None Seen (NORMAL)
[2023-06-11 08:38] LABS: Glucose Point of Care 58 mg/dl (65-105)
[2023-06-11 08:52] LABS: Glucose Point of Care 82 mg/dl (65-105)
[2023-06-11] MEDS: POTASSIUM CHLORIDE 20 MEQ PACKET (FOR LIQUID) 40 MEQ PO (09:18)
[2023-06-11] MEDS: lisinopriL 20 MG TABLET PO ×2 (09:19→17:03)
[2023-06-11] MEDS: amLODIPine BESYLATE 5 MG TABLET BY MOUTH (09:19)
[2023-06-11] MEDS: SPIRONOLACTONE 25 MG TABLET PO (09:19)
[2023-06-11] MEDS: FUROSEMIDE INJ 40 MG/4 ML VIAL IV PUSH ×2 (09:19→17:03)
[2023-06-11] MEDS: carvediloL 6.25 MG TABLET PO ×2 (09:19→20:26)
[2023-06-11] MEDS: FAMOTIDINE 20 MG TABLET BY MOUTH (09:19)
--- NOTE | 2023-06-11 09:38 | WPDNEUROPN ---
Subjective Date/time seen: 06/11/23 09:38 Interval history: Reviewed studies from 06/10. 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 Upper extremity doppler study shows acute DVT in L axillary and basilic veins. I would hold off on IVIG for now given risk of worsening thrombosis and/or new thrombotic events. Autoimmune/paraneoplastic encephalitis is still on the differential. Only positive CSF finding was elevated protein, although this can be seen in elderly patients with diabetes so its significance is unclear. MRI brain x 2 was unrevealing. Will continue to monitor mental status. May need to consider high dose steroid if no improvement. Objective Data Vital Signs Vital Signs: Vital Signs - 24 hr 06/10/23 09:42 06/10/23 10:00 06/10/23 12:00 Temperature Pulse Rate 74 70 Respiratory Rate Blood Pressure Pulse Oximetry 94 Oxygen Delivery Room Air 06/10/23 12:00 06/10/23 12:50 06/10/23 16:00 Temperature 36.7 C 36.1 C L Pulse Rate 66 71 66 Respiratory Rate 20 20 Blood Pressure 150/55 H 163/61 H Pulse Oximetry 93 96 Oxygen Delivery 06/10/23 14:00 06/10/23 16:00 06/10/23 18:00 Temperature Pulse Rate 74 70 63 Respiratory Rate Blood Pressure Pulse Oximetry Oxygen Delivery 06/10/23 16:00 06/10/23 19:40 06/10/23 22:17 Temperature 36.6 C Pulse Rate 67 65 Respiratory Rate 20 Blood Pressure 160/59 H Pulse Oximetry 95 98 Oxygen Delivery Room Air 06/11/23 00:00 06/10/23 20:00 06/10/23 22:00 Temperature 36.5 C Pulse Rate 62 61 63 Respiratory Rate 20 Blood Pressure 157/69 H Pulse Oximetry 96 Oxygen Delivery 06/11/23 00:00 06/11/23 02:00 06/10/23 20:00 Temperature Pulse Rate 62 62 67 Respiratory Rate 20 Blood Pressure Pulse Oximetry 98 Oxygen Delivery Room Air 06/11/23 00:00 06/11/23 04:00 06/11/23 04:00 Temperature Pulse Rate 62 60 56 L Respiratory Rate 20 18 Blood Pressure Pulse Oximetry 96 96 Oxygen Delivery Room Air Room Air 06/11/23 06:00 06/11/23 07:02 06/11/23 08:00 Temperature 36.5 C 36.6 C Pulse Rate 57 L 84 56 L Respiratory Rate 22 H 20 Blood Pressure 96/70 L 151/70 H Pulse Oximetry 96 95 Oxygen Delivery 06/11/23 09:19 Temperature Pulse Rate 60 Respiratory Rate Blood Pressure Pulse Oximetry Oxygen Delivery Intake/Output Intake/Output: Intake & Output 06/08/23 06/09/23 06/10/23 06/11/23 23:59 23:59 23:59 23:59 Intake Total 3807 2600 1970 500 Output Total 1100 2700 2150 900 Balance 2707 -100 -180 -400 Meds/Results Medications: Active Medications Generic Name Dose Route Start Last Admin Trade Name Freq PRN Reason Stop Dose Admin Amlodipine Besylate 5 mg 06/03/23 09:00 06/11/23 09:19 Amlodipine Besylate 5 Mg Tablet BY MOUTH 5 mg DAILY DRISS Administration Atorvastatin Calcium 40 mg 06/02/23 21:00 06/10/23 22:16 Atorvastatin 40 Mg Tablet PO 40 mg QHS DRISS Administration Carvedilol 6.25 mg 06/08/23 09:00 06/11/23 09:19 Carvedilol 6.25 Mg Tablet PO 6.25 mg Q12HR DRISS Administration Dextrose 12.5 gm 06/02/23 13:16 Dextrose 50% 25 Gm/50 Ml Syringe IV PUSH PRN PRN Hypoglycemia Protocol Famotidine 20 mg 06/03/23 09:00 06/11/23 09:19 Famotidine 20 Mg Tablet BY MOUTH 20 mg DAILY DRISS Administration Furosemide 40 mg 06/07/23 17:00 06/11/23 09:19 Furosemide Inj 40 Mg/4 Ml Vial IV PUSH 40 mg BID DRISS Administration Glucagon 1 mg 06/02/23 13:16 Glucagon For Inj 1 Mg Vial IM PRN PRN Hypoglycemia Protocol Glucose 15 gm 06/02/23 13:16 Glucose Oral Gel 15 Gm Of Glucse In 37.5 Gm Tube PO PRN PRN Hypoglycemia Protocol Heparin Sodium (Porcine) 4,000 units 06/10/23 17:05 Heparin Sodium 5,000 Units/Ml Vial IV PUSH PRN PRN aPTT 55 - 70 seconds Heparin Sodium (Porcine) 7,500 units 06/10/23 17:05 Heparin So
--- NOTE | 2023-06-11 10:50 | PCNFU ---
Nutrition Follow-Up Complete: Inadequate Oral Intake as related to AMS as evidenced by limited po intake. Goal: Adequate Intake of at least 75% of meals/supplements Patient is progressing towards goal. No new goal. Pt current nutrition is DBCC/Soft Bite Sized, Level 6 with Mild Thick liquids, Level 2. Last recorded weight is 133 kg, down from 137.6 kg on admit. Bowel Motility: +BM 06/11 Labs Reviewed:Glu 57,Alb 2.4,Hgb 9.0,Hct 29.5 Meds Noted: Coreg, Lasix, Rocephin, Heparin Skin: WNL Additional Notes: Patient had bedside swallow on 06/09 recommending Soft and Bite Sized, Level 6 with Mild Thick, Level 2 liquids. Spoke with HEALTH ADMINISTRATION TEACHER today, oral intake for breakfast about 50% of meal and 200 ml liquids. Patient is receiving Glucerna shakes BID for additional 220 kcals and 9 gms protein, He did not drink supplement for breakfast today. Agree with diet orders. RD will monitor weight, labs, skin, meds, oral intake every 5 days.
[2023-06-11 11:58] LABS: Glucose Point of Care 135 mg/dl (65-105)
[2023-06-11 12:29] LABS: Partial Thromboplastin Time 48.1 SECONDS (22.3-36.8)
[2023-06-11] MEDS: HEPARIN SODIUM 5,000 UNITS/ML VIAL 7500 UNITS IV PUSH (13:46)
--- NOTE | 2023-06-11 14:16 | PCPTNOTE ---
Patient refused treatment this session. Patient refused exercise, bed mobility, and transfers. Patient states the only thing I am going to do go home. Patient knows he is in the hospital but is confused. Attempts made to educate patient on the importance of therapy to improve strength and mobility, however patient continued to refuse stating I will be fine at home. I can get around on my own just fine.
--- NOTE | 2023-06-11 15:29 | PM.IMPN ---
Progress Note: A&P Assessment and Plan (1) Altered mental status: Code(s): R41.82 - Altered mental status, unspecified Status: Acute Assessment and Plan: Patient presents to the ED with AMS on 06/02. He was confused, combative and somnolent at times. Unsure of etiology but consider infectious etiology. Started on vancomycin, ampicillin, ceftriaxone, and acyclovir 06/02 Procalcitonin 0.1. Ammonia <9. B12 620. TSH 1.11. Brain MRI 06/04 showing no acute findings. LP performed 06/04: 6RBC/2WBC 60% lymph, 24% mono. Glucose 118 and Protein 90. BCx Negative CSF Cx Negative Sputum Cx test not performed WNV IgM negative, VZV IgM negative, CMV negative, VDRL nonreactive, Lyme nonreactive (only 2 bands) HSV PCR not detected so acyclovir stopped Neuro consulted and appreciated their input. 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 Not on sedating medications. Symptoms waxing/waning but better tehn admission Speech therapy consult after a witnessed choking episodes. 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 No acure findings. Etiology unclear but consider partially treated meningitis (LP performed 2 days after abx started) vs autoimmune encephilitis vs occult CVA Continue PT/OT. Continue IV abx. IVIg vs high dose steroids being considered Discussed with Macario GAMING who recommended stopping Vanco which was done today. (2) Left upper extremity deep vein thrombosis: Code(s): I82.622 - Acute embolism and thrombosis of deep veins of left upper extremity Status: Acute Assessment and Plan: Doppler of the UE showing acute DVT left axillary and basilic veins. Prophylactic Lovenox stopped. Heparin drip started. Monitor PTT Change to Elquis when improved (3) Pneumonia: Code(s): J18.9 - Pneumonia, unspecified organism Status: Acute Assessment and Plan: Chest CT showing dependent airspace opacities bilateral lower lobe c/w atelectasis vs PNA. Influenza, RSV and COVID PCR negative. Mycoplasma IgM, pneumococcal Ag and legionella Ag negative. BCx negative Requiring O2 today. WBC stable Continue antibiotics. (4) Elevated troponin: Code(s): R79.89 - Other specified abnormal findings of blood chemistry Status: Acute Assessment and Plan: Troponin elevated and peaked at 1.57. ECG showed sinus or ectopic atrial tachycardia with Lt BBB. The BBB is old. Cardiology consulted who felt elevated Trop related to infectious process. Echo showing EF 40-45%with Grade I diastolic dysfunction, mild valvular disease. (EF improved per cardiology) Tele showing prolonged NSVT on 06/09 and Cardiology was made aware. There has been no recurrence. Potassium low so will replace again. Mag 2.1 Follow on tele (5) NSVT (nonsustained ventricular tachycardia): Code(s): I47.29 - Other ventricular tachycardia Status: Acute Assessment and Plan: As above (6) Combined systolic and diastolic congestive heart failure: Code(s): I50.40 - Unspecified combined systolic (congestive) and diastolic (congestive) heart failure Status: Acute Assessment and Plan: Echo showing EF 40-45%with Grade I diastolic dysfunction, mild valvular disease More edematous but feel this is more dependent edema from not moving his hands much. Edema also related to excessive IV fluids from the IV abx. Continue Coreg and lisinopril. Spironolactone added. Lasix IV started to try to improve fluid status Monitor (7) Insulin dependent type 2 diabetes mellitus: Code(s): E11.9 - Type 2 diabetes mellitus without complications; Z79.4 - emt intermediate (current) use of insulin Status: Acute As
[2023-06-11 16:23] LABS: Glucose Point of Care 118 mg/dl (65-105)
[2023-06-11] MEDS: HEPARIN SOD/D5W 100 UNITS/ML 25,000 UNITS/250 ML BAG 16 UNITS IV CONT (16:25)
[2023-06-11 20:03] LABS: Glucose Point of Care 134 mg/dl (65-105)
[2023-06-11] MEDS: ATORVASTATIN 40 MG TABLET PO (20:26)
[2023-06-11] MEDS: INSULIN GLARGINE (*BKC) 100 UNITS/ML 15 UNITS SUB-Q (20:27)
[2023-06-11 21:34] LABS: Partial Thromboplastin Time > 200.0 SECONDS (22.3-36.8)
[2023-06-12] VITALS (13 sets, daily range): BP systolic 95–149; BP diastolic 46–74; PULSE 54–68; RESP 18–22; TEMP 36.4–37.2; O2SAT 93–100
[2023-06-12] MEDS: AMPICILLIN 2 GM/NS 100 ML 2 GM/100 ML BAG IVPB ×6 (01:39→20:18)
[2023-06-12] MEDS: cefTRIAXone 2 GM/NS 100 ML 2 GM/100 ML BAG IVPB ×2 (04:23→17:35)
[2023-06-12 05:23] LABS: Hematocrit 29.4 % (42.0-52.0); Hemoglobin 8.9 g/dL (14.0-18.0); Mean Corpuscular HGB Conc 30.3 g/dl (32-36); Mean Corpuscular Hemoglobin 28.7 pg (26-34); Mean Corpuscular Volume 94.8 fl (80-100); Mean Platelet Volume 9.3 fl (7.4-10.4); Platelet Count Result 331 k/mm3 (150-375); Red Cell Distribution Width 13.8 % (11.5-14.5); White Blood Count 10.3 K/mm3 (4.5-10.0)
[2023-06-12 05:35] LABS: Anion Gap 5 mmol/L (8-16); Blood Urea Nitrogen 28 mg/dL (9-20); Calcium 8.1 mg/dL (8.4-10.2); Carbon Dioxide 30 mmol/L (22-30); Chloride 105 mmol/L (98-107); Estimated CRCL calculation 56 ml/min; Estimated Glomerular Filt Rate 53; Glucose 119 mg/dL (65-110); Potassium 3.3 mmol/L (3.4-5.0); Sodium 140 mmol/L (137-145); Uric Acid 6.1 mg/dL (3.5-8.5)
[2023-06-12 05:37] LABS: Partial Thromboplastin Time 80.3 SECONDS (22.3-36.8)
--- NOTE | 2023-06-12 06:25 | PC.NURSE ---
This patient, Sae Wing, was transferred to [facility] on 06/12/23 at 0625. Personal belongings sent with patient. Report given to ISABEL Patterson. Appropriate documentation sent with patient. Patient's called and notified of move.
[2023-06-12] MEDS: CENTRAL LINE FLUSH 10 ML IV PUSH ×3 (06:57→20:20)
--- NOTE | 2023-06-12 07:40 | PM.PNCARD ---
Progress Note: A&P Assessment and Plan (1) Elevated troponin: Code(s): R79.89 - Other specified abnormal findings of blood chemistry Status: Acute Assessment and Plan: Peaked at 1.57. Probably related to infection/confusion. Doubt ACS given no symptoms to suggest it. 06/04/23 Echo: EF 45-50%, mild LVH, grade I diastolic dysfunction (E/e' 19), mod LAE, mild (PEACE 1.72 cm2), mod MAC, trace TR. EF improved compared to last echo. No further cardiac workup is needed. (2) Pneumonia: Code(s): J18.9 - Pneumonia, unspecified organism Status: Acute Assessment and Plan: On antibitotics as per hospitalist. (3) Insulin dependent type 2 diabetes mellitus: Code(s): E11.9 - Type 2 diabetes mellitus without complications; Z79.4 - nursing home (current) use of insulin Status: Acute Assessment and Plan: Managed as per hospitalits. (4) Hypertension: Qualifiers: Hypertension type: unspecified Qualified Code(s): I10 - Essential (primary) hypertension Code(s): I10 - Essential (primary) hypertension Status: Chronic Assessment and Plan: Stable. On Amlodipine 5 mg daily, Lisinopril 20 mg BID and on Coreg 6.25 mg BID. Continue Hydralazine 10 mg IV prn. On Spironolactone 25 mg daily. Monitor renal function and potassium. Monitor BP. (5) Dyslipidemia: Code(s): E78.5 - Hyperlipidemia, unspecified Status: Acute Assessment and Plan: Resume Atorvastatin. (6) Altered mental status: Code(s): R41.82 - Altered mental status, unspecified Status: Acute Assessment and Plan: Improved. Neurology following. Completed LP and MRI brain. (7) Left bundle branch block: Code(s): I44.7 - Left bundle-branch block, unspecified Status: Acute Assessment and Plan: Chronic. (8) NSVT (nonsustained ventricular tachycardia): Code(s): I47.29 - Other ventricular tachycardia Status: Acute Assessment and Plan: Nurse reports on 06/09/23 had 23 beat run of NSVT. I could not find the strip on classroom monitor or in chart. Nonetheless, it is non-sustained. He is on Coreg. Mag is low normal at 1.7. Mag [place] 2 gm IV given Potassium is low at 3.1 due to Lasix. Need to replete potassium level. (9) Combined systolic and diastolic congestive heart failure: Code(s): I50.40 - Unspecified combined systolic (congestive) and diastolic (congestive) heart failure Status: Acute Assessment and Plan: 06/04/23 Echo: EF 45-50%, mild LVH, grade I diastolic dysfunction (E/e' 19), mod LAE, mild (PEACE 1.72 cm2), mod MAC, trace TR. EF improved compared to last echo. On Lasix 40 mg IV BID due to significant edema of upper extremities and mild pleural effusion. On Spironolactone 25 mg daily. Will sign off. Please call with any questions. (10) Left upper extremity deep vein thrombosis: Code(s): I82.622 - Acute embolism and thrombosis of deep veins of left upper extremity Status: Acute Assessment and Plan: Changed Lovenox to heparin drip. Subjective Date/time seen: 06/12/23 07:40 Interval history: He is alert and oriented. No chest pain or sob. Exam Const: General: cooperative, healthy appearing, comfortable, obese and other (somnolent) Nutritional Appearance: obese Orientation/consciousness: oriented to person, oriented to place and oriented to time Resp: Auscultation: clear to auscultation bilaterally, no crackles, no rales, no rhonchi and no wheezes Cardio: Rate: regular rate Rhythm: regular rhythm Heart sounds: no murmurs Peripheral pulses: dorsalis pedis present Neuro: General: oriented to person and oriented to place Extrem: Right upper extremity: edema Left upper extremity: edema Right lower extremity: no edema Left lower extremity: no edema Objective Data Vital Signs Vital Signs: Vital Signs - 24 hr 06/11/23 08:00 06/11/23 09:19 06/11/23 11:54 Temperature 97.
[2023-06-12 08:02] LABS: Glucose Point of Care 120 mg/dl (65-105)
[2023-06-12] MEDS: HEPARIN SOD/D5W 100 UNITS/ML 25,000 UNITS/250 ML BAG 13 UNITS IV CONT (09:32)
[2023-06-12] MEDS: POTASSIUM CHLORIDE 20 MEQ PACKET (FOR LIQUID) 40 MEQ PO (09:34)
[2023-06-12] MEDS: lisinopriL 20 MG TABLET PO ×2 (09:35→17:35)
[2023-06-12] MEDS: FAMOTIDINE 20 MG TABLET BY MOUTH (09:35)
[2023-06-12] MEDS: amLODIPine BESYLATE 5 MG TABLET BY MOUTH (09:35)
[2023-06-12] MEDS: carvediloL 6.25 MG TABLET PO ×2 (09:35→20:20)
[2023-06-12] MEDS: FUROSEMIDE INJ 40 MG/4 ML VIAL IV PUSH (09:36)
[2023-06-12] MEDS: SPIRONOLACTONE 25 MG TABLET PO (09:37)
[2023-06-12] MEDS: INSULIN GLARGINE (*BKC) 100 UNITS/ML 15 UNITS SUB-Q (09:45)
[2023-06-12 11:35] LABS: Glucose Point of Care 103 mg/dl (65-105)
--- NOTE | 2023-06-12 11:51 | PM.IMPN ---
Progress Note: A&P Assessment and Plan (1) Altered mental status: Code(s): R41.82 - Altered mental status, unspecified Status: Acute Assessment and Plan: Patient presents to the ED with AMS on 06/02. He was confused, combative and somnolent at times. Unsure of etiology but consider infectious etiology. Started on vancomycin, ampicillin, ceftriaxone, and acyclovir 06/02 Procalcitonin 0.1. Ammonia <9. B12 620. TSH 1.11. Brain MRI 06/04 showing no acute findings. LP performed 06/04: 6RBC/2WBC 60% lymph, 24% mono. Glucose 118 and Protein 90. BCx Negative CSF Cx Negative Sputum Cx test not performed WNV IgM negative, VZV IgM negative, CMV negative, VDRL nonreactive, Lyme nonreactive (only 2 bands) HSV PCR not detected so acyclovir stopped Neuro consulted and appreciated their input. 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 Not on sedating medications. Symptoms waxing/waning but better overall Speech therapy consult after a witnessed choking episodes. 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 No acute findings. Etiology unclear but consider partially treated meningitis (LP performed 2 days after abx started) vs autoimmune encephalitis vs occult CVA Continue PT/OT. Continue IV abx. IVIg vs high dose steroids being considered Discussed with PharmD ID who recommended stopping Vanco which was done 06/11 Check ApneaLink Plan for 2 weeks of treatment with Rocephin and Ampicillin IV (end dates placed) (2) Left upper extremity deep vein thrombosis: Code(s): I82.622 - Acute embolism and thrombosis of deep veins of left upper extremity Status: Acute Assessment and Plan: Doppler of the UE showing acute DVT left axillary and basilic veins. Prophylactic Lovenox stopped. Heparin drip started. Monitor PTT Change to Elquis when improved (3) Pneumonia: Code(s): J18.9 - Pneumonia, unspecified organism Status: Acute Assessment and Plan: Chest CT showing dependent airspace opacities bilateral lower lobe c/w atelectasis vs PNA. Influenza, RSV and COVID PCR negative. Mycoplasma IgM, pneumococcal Ag and legionella Ag negative. BCx negative. Requiring O2 WBC better Continue antibiotics. (4) Elevated troponin: Code(s): R79.89 - Other specified abnormal findings of blood chemistry Status: Acute Assessment and Plan: Troponin elevated and peaked at 1.57. ECG showed sinus or ectopic atrial tachycardia with Lt BBB. The BBB is old. Cardiology consulted who felt elevated Trop related to infectious process. Echo showing EF 40-45% with Grade I diastolic dysfunction, mild valvular disease. (EF improved per cardiology) Tele showing prolonged NSVT on 06/09 and Cardiology was made aware. There has been no recurrence. Potassium 3.3. Mag 2.0. Replace potassium again Follow on tele (5) NSVT (nonsustained ventricular tachycardia): Code(s): I47.29 - Other ventricular tachycardia Status: Acute Assessment and Plan: As above (6) Combined systolic and diastolic congestive heart failure: Code(s): I50.40 - Unspecified combined systolic (congestive) and diastolic (congestive) heart failure Status: Acute Assessment and Plan: Echo showing EF 40-45%with Grade I diastolic dysfunction, mild valvular disease More edematous but feel this is more dependent edema from not moving his hands much. Edema also related to excessive IV fluids from the IV abx. Continue Coreg and lisinopril. Spironolactone added. Lasix IV started with improvement of fluid status; probably 1-2 more days of treatment. Decrease dose today Monitor. Add Empagliflozin (7) Insulin dependent type 2 d
[2023-06-12 12:07] LABS: Partial Thromboplastin Time 64.8 SECONDS (22.3-36.8)
[2023-06-12] MEDS: HEPARIN SOD/D5W 100 UNITS/ML 25,000 UNITS/250 ML BAG 15 UNITS IV CONT (12:55)
[2023-06-12] MEDS: HEPARIN SODIUM 5,000 UNITS/ML VIAL 4000 UNITS IV PUSH (12:56)
--- NOTE | 2023-06-12 13:06 | PC.NURSE ---
Patient's heparin drip titrated to 15/hr r/t last ptt draw of 64.8. Bolused 4000 units. Next aptt due at 1745.
[2023-06-12 16:53] LABS: Glucose Point of Care 146 mg/dl (65-105)
--- NOTE | 2023-06-12 18:58 | PC.NURSE ---
ptt drawn at 1744 is still pending, unable to titrate heparin before end of shift. Will pass information to shift supervisor rn RN to watch for ptt result and titrate as needed.
[2023-06-12 19:04] LABS: Partial Thromboplastin Time 197.9 SECONDS (22.3-36.8)
--- NOTE | 2023-06-12 19:06 | PC.NURSE ---
Addendum entered by Laquita London RN 06/12/23 19:08: RATE CHANGE from 15 to 12/hr ACCORDING TO PROTOCOL, NOT 13 LIKE PREVIOUSLY NOTED Original Note: heparin paused at 1905. Hold for one hour and decrease rate from 15 to 13 according to protocol.
[2023-06-12] MEDS: ATORVASTATIN 40 MG TABLET PO (20:20)
[2023-06-12 22:44] LABS: Glucose Point of Care 168 mg/dl (65-105)
[2023-06-12] MEDS: HEPARIN SOD/D5W 100 UNITS/ML 25,000 UNITS/250 ML BAG 12 UNITS IV CONT (23:46)
[2023-06-13] VITALS (10 sets, daily range): BP systolic 92–151; BP diastolic 63–89; PULSE 51–62; RESP 15–18; TEMP 36.3–37.2; O2SAT 93–100
[2023-06-13] MEDS: AMPICILLIN 2 GM/NS 100 ML 2 GM/100 ML BAG IVPB ×5 (00:27→23:57)
[2023-06-13 01:56] LABS: Partial Thromboplastin Time 54.2 SECONDS (22.3-36.8)
[2023-06-13] MEDS: HEPARIN SODIUM 5,000 UNITS/ML VIAL 7500 UNITS IV PUSH (02:25)
[2023-06-13] MEDS: cefTRIAXone 2 GM/NS 100 ML 2 GM/100 ML BAG IVPB ×2 (04:17→15:27)
[2023-06-13] MEDS: CENTRAL LINE FLUSH 10 ML IV PUSH ×3 (04:37→20:29)
[2023-06-13] MEDS: HEPARIN SOD/D5W 100 UNITS/ML 25,000 UNITS/250 ML BAG 16 UNITS IV CONT (06:40)
[2023-06-13 07:31] LABS: Glucose Point of Care 134 mg/dl (65-105)
[2023-06-13 07:51] LABS: Basophils Absolute Auto 0.1 K/mm3 (0.0-0.1); Basophils Percent Auto 0.5 % (0.2-1.2); Eosinophils Absolute Auto 0.8 K/mm3 (0-0.3); Hematocrit 29.5 % (42.0-52.0); Hemoglobin 9.2 g/dL (14.0-18.0); Immature Granulocyte Absolute 0.09 K/mm3 (0.00-0.031); Immature Granulocyte Percent A 0.8 % (0-0.5); Lymphocytes Absolute Auto 1.46 K/mm3 (0.9-3.2); Lymphocytes Percent Auto 13.7 % (18.3-44.2); Mean Corpuscular HGB Conc 31.2 g/dl (32-36); Mean Corpuscular Hemoglobin 29.3 pg (26-34); Mean Corpuscular Volume 93.9 fl (80-100); Mean Platelet Volume 9.1 fl (7.4-10.4); Neutrophils Absolute Auto 7.4 K/mm3 (1.3-6.7); Platelet Count Result 330 k/mm3 (150-375); Red Blood Count 3.14 M/mm3 (4.6-6.20); Red Cell Distribution Width 13.8 % (11.5-14.5); White Blood Count 10.7 K/mm3 (4.5-10.0)
[2023-06-13 08:00] LABS: Alanine Aminotransferase 17 U/L (6-50); Albumin Level 2.6 g/dL (3.5-5.1); Alkaline Phosphatase 80 U/L (38-126); Anion Gap 5 mmol/L (8-16); Aspartate Amino Transferase 26 U/L (17-59); Bilirubin,Total 0.5 mg/dL (0.2-1.3); Blood Urea Nitrogen 33 mg/dL (9-20); Calcium 8.3 mg/dL (8.4-10.2); Carbon Dioxide 31 mmol/L (22-30); Chloride 105 mmol/L (98-107); Estimated CRCL calculation 48 ml/min; Estimated Glomerular Filt Rate 45; Glucose 136 mg/dL (65-110); Potassium 3.5 mmol/L (3.4-5.0); Sodium 141 mmol/L (137-145)
[2023-06-13 08:18] LABS: Partial Thromboplastin Time > 200.0 SECONDS (22.3-36.8)
--- NOTE | 2023-06-13 08:28 | PC.NURSE ---
Patient ptt >200 from PICC line draw after pausing infusion for 10mins, flushing x3, and wasting 2 vials of blood prior to drawing. Requesting lab to draw peripheral stat ptt to double check. Heparin infusion paused now @ 0825.
--- NOTE | 2023-06-13 08:54 | PM.IMPN ---
Progress Note: A&P Assessment and Plan (1) Altered mental status: Code(s): R41.82 - Altered mental status, unspecified Status: Acute Assessment and Plan: Patient presents to the ED with AMS on 06/02. He was confused, combative and somnolent at times. Unsure of etiology but consider infectious etiology. Started on vancomycin, ampicillin, ceftriaxone, and acyclovir 06/02 Procalcitonin 0.1. Ammonia <9. B12 620. TSH 1.11. Brain MRI 06/04 showing no acute findings. LP performed 06/04: 6RBC/2WBC 60% lymph, 24% mono. Glucose 118 and Protein 90. BCx Negative CSF Cx Negative Sputum Cx test not performed WNV IgM negative, VZV IgM negative, CMV negative, VDRL nonreactive, Lyme nonreactive (only 2 bands) HSV PCR not detected so acyclovir stopped Neuro consulted and appreciated their input. 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 Not on sedating medications. Symptoms waxing/waning but better overall Speech therapy consult after a witnessed choking episodes. 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 No acute findings. Etiology unclear but consider partially treated meningitis (LP performed 2 days after abx started) vs autoimmune encephalitis vs occult CVA Continue PT/OT. Continue IV abx. IVIg vs high dose steroids being considered Discussed with PharmD ID who recommended stopping Vanco which was done 06/11 Check ApneaLink Plan for 2 weeks of treatment with Rocephin and Ampicillin IV (end dates placed) 06/13: unsure of etiology, still not improving, will place on waiting list for a bed at [facility] for possible IVIG, hi dose steroids vs plasmapheresis (2) Left upper extremity deep vein thrombosis: Code(s): I82.622 - Acute embolism and thrombosis of deep veins of left upper extremity Status: Acute Assessment and Plan: Doppler of the UE showing acute DVT left axillary and basilic veins. Prophylactic Lovenox stopped. Heparin drip started. Monitor PTT Change to Elquis when improved (3) Pneumonia: Code(s): J18.9 - Pneumonia, unspecified organism Status: Acute Assessment and Plan: Chest CT showing dependent airspace opacities bilateral lower lobe c/w atelectasis vs PNA. Influenza, RSV and COVID PCR negative. Mycoplasma IgM, pneumococcal Ag and legionella Ag negative. BCx negative. Requiring O2 WBC better Continue antibiotics. (4) Elevated troponin: Code(s): R79.89 - Other specified abnormal findings of blood chemistry Status: Acute Assessment and Plan: Troponin elevated and peaked at 1.57. ECG showed sinus or ectopic atrial tachycardia with Lt BBB. The BBB is old. Cardiology consulted who felt elevated Trop related to infectious process. Echo showing EF 40-45% with Grade I diastolic dysfunction, mild valvular disease. (EF improved per cardiology) Tele showing prolonged NSVT on 06/09 and Cardiology was made aware. There has been no recurrence. Potassium 3.3. Mag 2.0. Replace potassium again Follow on tele (5) NSVT (nonsustained ventricular tachycardia): Code(s): I47.29 - Other ventricular tachycardia Status: Acute Assessment and Plan: As above (6) Combined systolic and diastolic congestive heart failure: Code(s): I50.40 - Unspecified combined systolic (congestive) and diastolic (congestive) heart failure Status: Acute Assessment and Plan: Echo showing EF 40-45%with Grade I diastolic dysfunction, mild valvular disease More edematous but feel this is more dependent edema from not moving his hands much. Edema also related to excessive IV fluids from the IV abx. Continue Coreg and lisinopril. Spironolactone added. Lasix IV started with im
[2023-06-13] MEDS: EMPAGLIFLOZIN 10 MG TABLET PO (09:21)
[2023-06-13] MEDS: lisinopriL 20 MG TABLET PO ×2 (09:21→17:50)
[2023-06-13] MEDS: carvediloL 6.25 MG TABLET PO ×2 (09:22→20:28)
[2023-06-13] MEDS: SPIRONOLACTONE 25 MG TABLET PO (09:22)
[2023-06-13] MEDS: amLODIPine BESYLATE 5 MG TABLET BY MOUTH (09:22)
[2023-06-13] MEDS: FUROSEMIDE INJ 40 MG/4 ML VIAL IV PUSH (09:23)
[2023-06-13] MEDS: FAMOTIDINE 20 MG TABLET BY MOUTH (09:23)
--- NOTE | 2023-06-13 09:33 | PCNFU ---
Nutrition Follow-Up Complete: Inadequate Oral Intake as related to AMS as evidenced by limited po intake. Goal:Adequate Intake of at least 75% of meals/supplements Pt not meeting goal, continue with same goal. Pt current nutrition is Soft and bite sized Diabetic diet, mildly thick liquids level 2, Glucerna shakes BID. Nutrition recommendation: Add ESTELLE BID for wound healing Last recorded weight is 133.6 kg. Bowel Motility: +BM 06/12 Labs Reviewed: Hgb:9.2, HCT:29.5, Alb:2.6, GFR:45, BUN:33, Cr:1.5 Meds Noted: lasix Skin: New DTPI to buttocks Additional Notes: Pt continues on same diet, intake remains suboptimal. Noted new pressure injury to buttocks. Recommend ESTELLE BID for wound healing. Encourage intake of meals and supplements. RD will monitor weight, labs, skin, meds, oral intake every 5 days.
--- NOTE | 2023-06-13 10:03 | PC.NURSE ---
At 0842 patient's ptt was verified with a peripheral draw, result 199. Paused at 0842. Held for one hour and resumed at 0942 and decreased rate from 16 to 13 units/hr per protocol.
[2023-06-13 11:31] LABS: Glucose Point of Care 145 mg/dl (65-105)
[2023-06-13] MEDS: HEPARIN SODIUM 5,000 UNITS/ML VIAL 4000 UNITS IV PUSH (15:57)
--- NOTE | 2023-06-13 16:14 | PC.NURSE ---
Gave 4000 unit heparin bolus IV and titrated heparin drip from 13 to 15mls/hr due to ptt of 55.
[2023-06-13 17:03] LABS: Glucose Point of Care 141 mg/dl (65-105)
[2023-06-13] MEDS: ATORVASTATIN 40 MG TABLET PO (20:28)
[2023-06-13] MEDS: INSULIN GLARGINE (*BKC) 100 UNITS/ML 10 UNITS SUB-Q (20:35)
[2023-06-13 20:44] LABS: Glucose Point of Care 164 mg/dl (65-105)
[2023-06-13 21:37] LABS: Partial Thromboplastin Time 160.5 SECONDS (22.3-36.8)
[2023-06-14] VITALS (11 sets, daily range): BP systolic 138–150; BP diastolic 60–74; PULSE 50–68; RESP 18; TEMP 36.2–36.7; O2SAT 92–94
[2023-06-14] MEDS: cefTRIAXone 2 GM/NS 100 ML 2 GM/100 ML BAG IVPB ×2 (04:00→16:50)
[2023-06-14 04:15] LABS: Basophils Absolute Auto 0.1 K/mm3 (0.0-0.1); Basophils Percent Auto 0.5 % (0.2-1.2); Eosinophils Absolute Auto 0.6 K/mm3 (0-0.3); Eosinophils Percent Auto 6.2 % (0-4.4); Hematocrit 28.5 % (42.0-52.0); Hemoglobin 8.7 g/dL (14.0-18.0); Immature Granulocyte Absolute 0.08 K/mm3 (0.00-0.031); Immature Granulocyte Percent A 0.9 % (0-0.5); Lymphocytes Absolute Auto 1.65 K/mm3 (0.9-3.2); Lymphocytes Percent Auto 17.9 % (18.3-44.2); Mean Corpuscular HGB Conc 30.5 g/dl (32-36); Mean Corpuscular Hemoglobin 28.6 pg (26-34); Mean Corpuscular Volume 93.8 fl (80-100); Mean Platelet Volume 9.2 fl (7.4-10.4); Monocytes Absolute Auto 0.9 K/mm3 (0.1-0.6); Monocytes Percent Auto 9.4 % (2.6-8.5); Neutrophils Percent Auto 65.1 % (45.5-73.1); Platelet Count Result 317 k/mm3 (150-375); Red Blood Count 3.04 M/mm3 (4.6-6.20); Red Cell Distribution Width 13.5 % (11.5-14.5); White Blood Count 9.2 K/mm3 (4.5-10.0)
[2023-06-14 04:25] LABS: Alanine Aminotransferase 16 U/L (6-50); Albumin Level 2.5 g/dL (3.5-5.1); Alkaline Phosphatase 78 U/L (38-126); Anion Gap 6 mmol/L (8-16); Aspartate Amino Transferase 24 U/L (17-59); Bilirubin,Total 0.5 mg/dL (0.2-1.3); Blood Urea Nitrogen 33 mg/dL (9-20); Calcium 8.4 mg/dL (8.4-10.2); Carbon Dioxide 31 mmol/L (22-30); Chloride 104 mmol/L (98-107); Estimated CRCL calculation 45 ml/min; Estimated Glomerular Filt Rate 42; Glucose 129 mg/dL (65-110); Potassium 3.5 mmol/L (3.4-5.0); Sodium 141 mmol/L (137-145)
[2023-06-14 04:29] LABS: Partial Thromboplastin Time 94.3 SECONDS (22.3-36.8)
[2023-06-14] MEDS: AMPICILLIN 2 GM/NS 100 ML 2 GM/100 ML BAG IVPB ×3 (05:48→16:50)
[2023-06-14] MEDS: CENTRAL LINE FLUSH 10 ML IV PUSH ×2 (05:49→15:50)
--- NOTE | 2023-06-14 08:26 | IVDEFINITY ---
Prior to administration of IV Definity the patient was educated on the risks and benefits of the imaging enhancing agent including potential adverse side effects. The patient verbalized understanding. Allergies were verified. No exclusion criteria were identified and at least one of the following inclusion criteria were met: 1) physician request, 2) patient technically difficult to image (per the [place] [employer] guidelines of two or more segments not discernable within the apical view), or 3) questionable left ventricular function. ?
[2023-06-14 08:38] LABS: Glucose Point of Care 126 mg/dl (65-105)
--- NOTE | 2023-06-14 08:41 | PCOTNOTE ---
The patient treatment was not able to be completed. Patient declined getting up at this time. Patient seemed agreeable to working with OT at a later time when discussed working with therapy. Will plan to continue treatment per plan of care.
[2023-06-14] MEDS: HEPARIN SOD/D5W 100 UNITS/ML 25,000 UNITS/250 ML BAG 12 UNITS IV CONT (09:31)
[2023-06-14] MEDS: SPIRONOLACTONE 25 MG TABLET PO (09:35)
[2023-06-14] MEDS: amLODIPine BESYLATE 5 MG TABLET BY MOUTH (09:35)
[2023-06-14] MEDS: FAMOTIDINE 20 MG TABLET BY MOUTH (09:35)
[2023-06-14] MEDS: EMPAGLIFLOZIN 10 MG TABLET PO (09:35)
[2023-06-14] MEDS: FUROSEMIDE INJ 40 MG/4 ML VIAL IV PUSH (09:35)
[2023-06-14] MEDS: lisinopriL 20 MG TABLET PO ×2 (09:36→16:50)
[2023-06-14 10:55] LABS: Partial Thromboplastin Time 65.1 SECONDS (22.3-36.8)
[2023-06-14] MEDS: HEPARIN SODIUM 5,000 UNITS/ML VIAL 4000 UNITS IV PUSH (11:16)
[2023-06-14 12:12] LABS: Glucose Point of Care 114 mg/dl (65-105)
--- NOTE | 2023-06-14 13:40 | WPDNEUROPN ---
Progress Note: A&P Assessment and Plan (1) Altered mental status: Code(s): R41.82 - Altered mental status, unspecified Status: Acute Plan Sae Wing is a 82 year old male with a history of diabetes, hypertension, CHF, COPD, hyperlipidemia presenting for altered mental status. Started on meningitic antibiotics and acyclovir. LP was done about two days after antibiotics were initiated. Normal CSF cell count and CSF cultures negative. Elevated protein CSF which was concerning for possible infectious meningitis/encephalitis presentation, although he is elderly and a diabetic so could be not significant. Serum WBC initially elevated but downtrending and now normal. Overall mentation seems somewhat improved since admission, but he is still not at baseline; he was also having slurred speech and swallowing issues. His MRI brain from 06/04 was unremarkable, and repeat MRI brain from 06/08 did not show any acute findings either. No obvious source of infection found. LP was not done successfully until two days after antibiotics were already initiated, so could be partially treated meningitis. 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 -- he had dysarthria, dysphagia and alteration in mental status. CSF was mildly abnormal with elevated protein. MRI brain unrevealing. There is a good percentage of these patients that have negative CSF and imaging. Sent autoimmune encephalitis panel, which unfortunately will take a few weeks to come back. There are no set guidelines on treatment but immunotherapy with IVIG, steroids, and plasmapheresis have all been used with success. Initially thought to move forward with IVIG but he was found to have acute DVT during this admission so held off due to concern for additional thrombotic events. While he has day to day fluctuations, he seems more alert and oriented today than he has over the past week. Likely would not expect this improvement with untreated autoimmune encephalitis. Speech and swallowing has improved since he has been more alert. I am hesitant to try high dose steroids empirically, as that could worsen delirium as well. Son is very concerned still about patient's overall condition. I think there is some delirium that has set in which could be the cause of his day to day fluctuations, but we still do not know what the cause of his initial presentation was. I think it is very reasonable to transfer for second opinion, as discussed with the hospitalist yesterday. Subjective Date/time seen: 06/14/23 13:40 Interval history: Sae E Maciej is a 82 year old male with a history of diabetes, hypertension, CHF, COPD, hyperlipidemia presenting for altered mental status. On day before presentation patient was complaining of chills. Patient seemed to be increasingly more confused throughout the day -- went outside without his cane or jacket. He was also attempting to climb up the kitchen cabinets and the fireplace. was not able to redirect him. Patient previously has had similar behavior with pneumonia in the past. Patient was taken to [place] [facility] for further evaluation. In the ED his temperature was 100.1 on arrival. His labs were significant for WBC of 11.1. CRP was wnl. UA not suggestive of infection. URI panel was negative. Alcohol and UDS was negative. CT head did not show any acute findings. CXR read as bibasilar airspace opacities suggestive of atelectasis vs pneumonia. CT chest abdomen pelvis did not show any infectious source. He was quite agitated in the ED so he received several doses of Ativan, Haldol, and Versed. He was started on Rocephin, ampicillin, vancomycin, and acyclovir empirically. LP was not successful in the ED on presentation due to patient's body habitus. The LP was done successfully after he had been on antibiotics for two days already. Initial MRI brain w/o contrast read as normal. LP showed normal cell count but elevated protein of 90. He was initially on acyclovir,
[2023-06-14 16:18] LABS: Glucose Point of Care 107 mg/dl (65-105)
--- NOTE | 2023-06-14 17:26 | PM.IMPN ---
Progress Note: A&P Assessment and Plan (1) Altered mental status: Code(s): R41.82 - Altered mental status, unspecified Status: Acute Assessment and Plan: Patient presents to the ED with AMS on 06/02. He was confused, combative and somnolent at times. Unsure of etiology but consider infectious etiology. Started on vancomycin, ampicillin, ceftriaxone, and acyclovir 06/02 Procalcitonin 0.1. Ammonia <9. B12 620. TSH 1.11. Brain MRI 06/04 showing no acute findings. LP performed 06/04: 6RBC/2WBC 60% lymph, 24% mono. Glucose 118 and Protein 90. BCx Negative CSF Cx Negative Sputum Cx test not performed WNV IgM negative, VZV IgM negative, CMV negative, VDRL nonreactive, Lyme nonreactive (only 2 bands) HSV PCR not detected so acyclovir stopped Neuro consulted and appreciated their input. 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 Not on sedating medications. Symptoms waxing/waning but better overall Speech therapy consult after a witnessed choking episodes. 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 No acute findings. Etiology unclear but consider partially treated meningitis (LP performed 2 days after abx started) vs autoimmune encephalitis vs occult CVA Continue PT/OT. Continue IV abx. IVIg vs high dose steroids being considered Discussed with PharmD ID who recommended stopping Vanco which was done 06/11 Check ApneaLink Plan for 2 weeks of treatment with Rocephin and Ampicillin IV (end dates placed) 06/13: unsure of etiology, still not improving, will place on waiting list for a bed at [facility] for possible IVIG, hi dose steroids vs plasmapheresis On 06/14 awaiting call back from [facility] from hospitalist. Also, essentially the neurologist has been fired by the son. Apparently he does not like Dr. Pendleton, unclear when Dr. Cruz is coming back. All we can do at the moment is continue the ampicillin and ceftriaxone. Spoke with the daughter and sister of the patient and they do not have complaints. Considering his right face or droop, wonder if he is having progression of vascular dementia. Of note, the patient's pupils are 2 mm and barely reactive. Family does not report knowledge of drug use and he is not on narcotics. Do not know if his pupils are always like that. Will check a drug urine screen. (2) Left upper extremity deep vein thrombosis: Code(s): I82.622 - Acute embolism and thrombosis of deep veins of left upper extremity Status: Acute Assessment and Plan: Doppler of the UE showing acute DVT left axillary and basilic veins. Prophylactic Lovenox stopped. Heparin drip started. Monitor PTT Change to Eliquis when improved (3) Pneumonia: Code(s): J18.9 - Pneumonia, unspecified organism Status: Acute Assessment and Plan: Chest CT showing dependent airspace opacities bilateral lower lobe c/w atelectasis vs PNA. Influenza, RSV and COVID PCR negative. Mycoplasma IgM, pneumococcal Ag and legionella Ag negative. BCx negative. No longer requiring O2. WBC better Continue antibiotics. (4) Elevated troponin: Code(s): R79.89 - Other specified abnormal findings of blood chemistry Status: Acute Assessment and Plan: Troponin elevated and peaked at 1.57. ECG showed sinus or ectopic atrial tachycardia with Lt BBB. The BBB is old. Cardiology consulted who felt elevated Trop related to infectious process. Echo showing EF 40-45% with Grade I diastolic dysfunction, mild valvular disease. (EF improved per cardiology) Tele showing prolonged NSVT on 06/09 and Cardiology was made aware. There has been no recurrence. Potassium 3.3. Mag 2.0. Replace potassium again Follow on tele (5) NSVT (nonsustai
[2023-06-14 17:27] LABS: Partial Thromboplastin Time > 200.0 SECONDS (22.3-36.8)
--- NOTE | 2023-06-14 20:37 | P.PNCROSS_ITS ---
Event Note Event Note Event Note: Cross Coverage: 20:30 - Patient agitated. Pulled out PIC line to RUE. Bleeding controlled, peripheral IV inserted. Verbally responsive but agitated, not redirectable with multiple verbal attempts at redirection. A/Oxself. Soft upper restraints ordered. 5 mg PO of Olanzapine x1 PRN for agitation ordered. 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 MRI was unrevealing. CSF was mildly abnormal with elevated protein. Transfer initiated to [place], currently on waiting list as of 5:00 p.m. today. Awaiting transfer. 22:00 - reduced agitation in the last hour post-admin of olanzapine. remains a wake and tolerating BUE restraints.
[2023-06-14] MEDS: carvediloL 6.25 MG TABLET PO (20:55)
[2023-06-14] MEDS: ATORVASTATIN 40 MG TABLET PO (20:55)
[2023-06-14] MEDS: OLANZapine 5 MG TABLET PO (20:55)
[2023-06-14] MEDS: INSULIN GLARGINE (*BKC) 100 UNITS/ML 10 UNITS SUB-Q (21:15)
[2023-06-14 21:37] LABS: Amphetamine Screen Urine Negative (Negative); Barbiturate Screen Urine Negative (Negative); Benzodiazepines Screen Urine Negative (Negative); Cannabinoid Screen Urine Negative (Negative); Cocaine Screen Urine Negative (Negative); Methadone Screen Urine Negative (Negative); Opiate Screen Urine Negative (Negative); Phencyclidine Screen Urine Negative (Negative)
[2023-06-14] MEDS: HEPARIN SODIUM 5,000 UNITS/ML VIAL 7500 UNITS IV PUSH (23:53)
[2023-06-14 23:56] LABS: Glucose Point of Care 140 mg/dl (65-105)
[2023-06-15] VITALS (7 sets, daily range): BP systolic 103; BP diastolic 58; PULSE 59–63; RESP 18; TEMP 36.8; O2SAT 95
[2023-06-15] MEDS: AMPICILLIN 2 GM/NS 100 ML 2 GM/100 ML BAG IVPB ×3 (00:55→17:02)
[2023-06-15] MEDS: cefTRIAXone 2 GM/NS 100 ML 2 GM/100 ML BAG IVPB ×2 (04:10→17:01)
[2023-06-15 06:39] LABS: Basophils Absolute Auto 0.1 K/mm3 (0.0-0.1); Basophils Percent Auto 0.5 % (0.2-1.2); Eosinophils Absolute Auto 0.5 K/mm3 (0-0.3); Eosinophils Percent Auto 4.8 % (0-4.4); Hematocrit 31.8 % (42.0-52.0); Hemoglobin 9.8 g/dL (14.0-18.0); Immature Granulocyte Absolute 0.11 K/mm3 (0.00-0.031); Lymphocytes Absolute Auto 1.63 K/mm3 (0.9-3.2); Lymphocytes Percent Auto 14.6 % (18.3-44.2); Mean Corpuscular HGB Conc 30.8 g/dl (32-36); Mean Corpuscular Hemoglobin 28.5 pg (26-34); Mean Corpuscular Volume 92.4 fl (80-100); Mean Platelet Volume 9.6 fl (7.4-10.4); Monocytes Absolute Auto 0.9 K/mm3 (0.1-0.6); Monocytes Percent Auto 8.3 % (2.6-8.5); Neutrophils Absolute Auto 7.9 K/mm3 (1.3-6.7); Neutrophils Percent Auto 70.8 % (45.5-73.1); Platelet Count Result 399 k/mm3 (150-375); Red Blood Count 3.44 M/mm3 (4.6-6.20); Red Cell Distribution Width 13.6 % (11.5-14.5); White Blood Count 11.2 K/mm3 (4.5-10.0)
[2023-06-15 06:45] LABS: Partial Thromboplastin Time 151.3 SECONDS (22.3-36.8)
[2023-06-15 06:56] LABS: Alanine Aminotransferase 15 U/L (6-50); Albumin Level 2.9 g/dL (3.5-5.1); Alkaline Phosphatase 84 U/L (38-126); Anion Gap 6 mmol/L (8-16); Aspartate Amino Transferase 25 U/L (17-59); Bilirubin,Total 0.6 mg/dL (0.2-1.3); Blood Urea Nitrogen 26 mg/dL (9-20); Carbon Dioxide 32 mmol/L (22-30); Chloride 104 mmol/L (98-107); Estimated CRCL calculation 47 ml/min; Estimated Glomerular Filt Rate 45; Glucose 110 mg/dL (65-110); Potassium 3.2 mmol/L (3.4-5.0); Sodium 142 mmol/L (137-145)
[2023-06-15 07:43] LABS: Glucose Point of Care 96 mg/dl (65-105)
[2023-06-15] MEDS: HEPARIN SOD/D5W 100 UNITS/ML 25,000 UNITS/250 ML BAG 12 UNITS IV CONT (08:11)
[2023-06-15] MEDS: amLODIPine BESYLATE 5 MG TABLET BY MOUTH (09:57)
[2023-06-15] MEDS: FUROSEMIDE INJ 40 MG/4 ML VIAL IV PUSH (09:57)
[2023-06-15] MEDS: EMPAGLIFLOZIN 10 MG TABLET PO (09:57)
[2023-06-15] MEDS: lisinopriL 20 MG TABLET PO (09:57)
[2023-06-15] MEDS: FAMOTIDINE 20 MG TABLET BY MOUTH (09:57)
[2023-06-15] MEDS: SPIRONOLACTONE 25 MG TABLET PO (09:57)
[2023-06-15] MEDS: carvediloL 6.25 MG TABLET PO (09:58)
--- NOTE | 2023-06-15 10:24 | WPDNEUROPN ---
Progress Note: A&P Assessment and Plan (1) Altered mental status: Code(s): R41.82 - Altered mental status, unspecified Status: Acute Plan Sae Wing is a 82 year old male with a history of diabetes, hypertension, CHF, COPD, hyperlipidemia presenting for altered mental status. Started on meningitic antibiotics and acyclovir. LP was done about two days after antibiotics were initiated. Normal CSF cell count and CSF cultures negative. Elevated protein CSF which was concerning for possible infectious/inflammatory process, although he is elderly and a diabetic so could be not significant. Serum WBC initially elevated but downtrending and now normal. His MRI brain from 06/04 was unremarkable, and repeat MRI brain from 06/08 did not show any acute findings either. No obvious source of infection found. LP was not done successfully until two days after antibiotics were already initiated, so could be partially treated meningitis. 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 -- he had dysarthria, dysphagia and alteration in mental status. CSF as mentioned before was mildly abnormal with elevated protein. MRI brain unrevealing. There is a good percentage of these patients that have negative CSF and imaging. Sent autoimmune encephalitis panel, which unfortunately will take a few weeks to come back. There are no set guidelines on treatment but immunotherapy with IVIG, steroids, and plasmapheresis have all been used with success. Initially thought to move forward with IVIG but he was found to have acute DVT during this admission so held off due to concern for additional thrombotic events. He continues to have day to day fluctuation -- yesterday he was much more alert, oriented x 3, making jokes with staff. Likely would not expect this improvement with untreated autoimmune encephalitis. I am hesitant to try high dose steroids empirically, as that could worsen delirium as well. Son is very concerned still about patient's overall condition. He is very insistent that patient had completely normal cognition prior to this admission, and that this is a very drastic change for him. I think there is some delirium that has set in which could be the cause of his dramatic day to day fluctuations, but we still do not know what the cause of his initial presentation was. I think it is very reasonable to transfer for second opinion, as discussed with the hospitalist. Subjective Date/time seen: 06/15/23 10:24 Interval history: Sae Wing is a 82 year old male with a history of diabetes, hypertension, CHF, COPD, hyperlipidemia presenting for altered mental status. On day before presentation patient was complaining of chills. Patient seemed to be increasingly more confused throughout the day -- went outside without his cane or jacket. He was also attempting to climb up the kitchen cabinets and the fireplace. was not able to redirect him. Patient was taken to [place] [facility] for further evaluation. In the ED his temperature was 100.1 on arrival. His labs were significant for WBC mildly elevated at 11.1. CRP was wnl. UA not suggestive of infection. URI panel was negative. Alcohol and UDS was negative. CT head did not show any acute findings. CXR read as bibasilar airspace opacities suggestive of atelectasis vs pneumonia. CT chest abdomen pelvis did not show any infectious source. He was quite agitated in the ED so he received several doses of Ativan, Haldol, and Versed. He was started on Rocephin, ampicillin, vancomycin, and acyclovir empirically. LP was not successful in the ED on presentation due to patient's body habitus. The LP was done successfully after he had been on antibiotics for two days already. Initial MRI brain w/o contrast read as normal. LP showed normal cell count but elevated protein of 90. He was initially on acyclovir, ampicillin, Rocephin, Vancomycin. CSF bacterial and fungal culture is negative. Blood culture is negative. WNV IgM n
--- NOTE | 2023-06-15 10:37 | PC.NURSE ---
Pt's son was made aware of why pt was in restraints and what had transpired over night. Pt's son agreed to remain in the room and agreed to monitor pt and prevent him from pulling anything else out/off. Both restraints were released so that pt could be boosted in the bed and pt immediately began trying to pull his IVs out and then swung and yelled profanities at me in front of pt's son who had been doubting my account of events that had led up to the use of restraints. We refastened the left restraint and left the right arm free as both IVs are in the right arm so that pt could eat without ripping out his IVs again and disrupting the heparin drip again.
[2023-06-15 11:40] LABS: Glucose Point of Care 109 mg/dl (65-105)
[2023-06-15 13:12] LABS: Partial Thromboplastin Time 53.1 SECONDS (22.3-36.8)
--- NOTE | 2023-06-15 14:21 | PCOTNOTE ---
The patient treatment was not able to be completed. Patient was lethargic and not appropriate at this time for occupational therapy. Will plan to continue treatment per plan of care.
--- NOTE | 2023-06-15 14:34 | PM.IMPN ---
Progress Note: A&P Assessment and Plan (1) Altered mental status: Code(s): R41.82 - Altered mental status, unspecified Status: Acute Assessment and Plan: Patient presents to the ED with AMS on 06/02. He was confused, combative and somnolent at times. Unsure of etiology but consider infectious etiology. Started on vancomycin, ampicillin, ceftriaxone, and acyclovir 06/02 Procalcitonin 0.1. Ammonia <9. B12 620. TSH 1.11. Brain MRI 06/04 showing no acute findings. LP performed 06/04: 6RBC/2WBC 60% lymph, 24% mono. Glucose 118 and Protein 90. BCx Negative CSF Cx Negative Sputum Cx test not performed WNV IgM negative, VZV IgM negative, CMV negative, VDRL nonreactive, Lyme nonreactive (only 2 bands) HSV PCR not detected so acyclovir stopped Neuro consulted and appreciated their input. 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 Not on sedating medications. Symptoms waxing/waning but better overall Speech therapy consult after a witnessed choking episodes. 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 No acute findings. Etiology unclear but consider partially treated meningitis (LP performed 2 days after abx started) vs autoimmune encephalitis vs occult CVA Continue PT/OT. Continue IV abx. IVIg vs high dose steroids being considered Discussed with PharmD ID who recommended stopping Vanco which was done 06/11 Check ApneaLink Plan for 2 weeks of treatment with Rocephin and Ampicillin IV (end dates placed) 06/13: unsure of etiology, still not improving, will place on waiting list for a bed at [facility] for possible IVIG, hi dose steroids vs plasmapheresis On 06/14 awaiting call back from [facility] from hospitalist. Also, essentially the neurologist has been fired by the son. Apparently he does not like Dr. Pendleton, unclear when Dr. Cruz is coming back. All we can do at the moment is continue the ampicillin and ceftriaxone. Spoke with the daughter and sister of the patient and they do not have complaints. Considering his right face or droop, wonder if he is having progression of vascular dementia. Of note, the patient's pupils are 2 mm and barely reactive. Family does not report knowledge of drug use and he is not on narcotics. Do not know if his pupils are always like that. Will check a drug urine screen. On 06/15 -overnight became agitated and pulled out PICC line. She has apraxia 5 mg p.o. x1. He is back to being somnolent and barely waking to loud verbal cues. Discussion held with Dr. Cruz, appreciate their recommendations although at this point the son simply wants us to transfer to outside facility. Yesterday Zi refused to accept the transfer for ID consultation and 2nd opinion from Neurology. Today will be calling U. (2) Left upper extremity deep vein thrombosis: Code(s): I82.622 - Acute embolism and thrombosis of deep veins of left upper extremity Status: Acute Assessment and Plan: Doppler of the UE showing acute DVT left axillary and basilic veins. Prophylactic Lovenox stopped. Heparin drip started. Monitor PTT Change to Eliquis when improved (3) Pneumonia: Code(s): J18.9 - Pneumonia, unspecified organism Status: Acute Assessment and Plan: Chest CT showing dependent airspace opacities bilateral lower lobe c/w atelectasis vs PNA. Influenza, RSV and COVID PCR negative. Mycoplasma IgM, pneumococcal Ag and legionella Ag negative. BCx negative. No longer requiring O2. WBC better Continue antibiotics. (4) Elevated troponin: Code(s): R79.89 - Other specified abnormal findings of blood chemistry Status: Acute Assessment and Plan: Troponin elevated and peaked at 1.57. ECG s
[2023-06-15 16:21] LABS: Glucose Point of Care 125 mg/dl (65-105)
[2023-06-15] MEDS: CENTRAL LINE FLUSH 10 ML IV PUSH (17:00)
--- NOTE | 2023-06-15 17:27 | PM.TDS ---
Transfer Discharge Sum: Prov Provider Date of admission: 06/02/23 07:27 Primary care physician: Fay Randle PA-C Admitting clinician: Helena Hurley DO Attending physician on admission: Helena Hurley Consults: 06/03/23 Consult to Physician Routine Comment: Consulting Provider: Angel Dawn call center specialist/MD group to consult: Cardiology Reason for consultation: Elevated troponin Has provider been notified: Yes Consult to Physician Routine Comment: Consulting Provider: Srini Pendleton call center specialist/MD group to consult: Neurology Reason for consultation: Altered mental status, meningitis? LP? Has provider been notified: Yes 06/12/23 Wound/ET Consult Routine Reason for Consult:: Wound to coccyx Attending physician on discharge: Kenya Robin Discharging clinician: Kenya Robin Anticipated date of transfer: 06/15/23 Receiving physician/facility[facility] [place] [facility]. Primary team is hospitalist accepted by Dr. Hollis and consulting neurologist is Dr. Stephens DS: Admitting Diagnosis Discharge Date 06/15/23 Admitting Diagnosis acute encephalopathy DS: Discharge Diagnosis Discharge Diagnosis (1) Left upper extremity deep vein thrombosis: Code(s): I82.622 - Acute embolism and thrombosis of deep veins of left upper extremity Status: Acute (2) NSVT (nonsustained ventricular tachycardia): Code(s): I47.29 - Other ventricular tachycardia Status: Acute (3) Combined systolic and diastolic congestive heart failure: Code(s): I50.40 - Unspecified combined systolic (congestive) and diastolic (congestive) heart failure Status: Acute (4) Elevated troponin: Code(s): R79.89 - Other specified abnormal findings of blood chemistry Status: Acute (5) Chronic obstructive pulmonary disease: Code(s): J44.9 - Chronic obstructive pulmonary disease, unspecified Status: Acute (6) Insulin dependent type 2 diabetes mellitus: Code(s): E11.9 - Type 2 diabetes mellitus without complications; Z79.4 - [facility] (current) use of insulin Status: Acute (7) Altered mental status: Code(s): R41.82 - Altered mental status, unspecified Status: Acute Transfer Discharge Sum: Med Medications Active and Home Medications: Home Medications aspirin 325 mg tablet 325 mg PO DAILY 04/27/20 [History Confirmed 06/02/23] amlodipine 5 mg tablet See Rx Instructions .Route .COMPLEX #90 tabs 11/17/22 [Rx Confirmed 06/02/23] atorvastatin 40 mg tablet 40 mg PO QHS #90 tabs 11/17/22 [Rx Confirmed 06/02/23] famotidine 20 mg tablet See Rx Instructions .Route .COMPLEX #180 tabs 11/17/22 [Rx Confirmed 06/02/23] insulin detemir U-100 100 unit/mL (3 mL) subcutaneous pen 50 unit (0.5 mL) subcut DAILY #45 mL 11/17/22 [Rx Confirmed 06/02/23] lisinopril 10 mg tablet 10 mg PO DAILY #90 tabs 11/17/22 [Rx Confirmed 06/02/23] metformin 500 mg tablet,extended release 24 hr See Rx Instructions .Route .COMPLEX #360 tabs 11/17/22 [Rx Confirmed 06/02/23] pen needle, diabetic 32 gauge x 1/6 #200 ea 11/17/22 [Rx Confirmed 06/02/23] blood sugar diagnostic (OneTouch Ultra Test strips) #300 ea 01/19/23 [Rx Confirmed 06/02/23] flash glucose scanning reader (FreeStyle [place] 14 Day [place]) #1 ea 03/05/23 [Rx Confirmed 06/02/23] flash glucose sensor (FreeStyle [place] 14 Day Sensor kit) #2 ea 03/05/23 [Rx Confirmed 06/02/23] glimepiride 4 mg tablet See Rx Instructions .Route .COMPLEX #90 tabs 03/05/23 [Rx Confirmed 06/02/23] insulin lispro 100 unit/mL subcutaneous pen (Humalog KwikPen (U-100) Insulin) See Rx Instructions .Route .COMPLEX 03/05/23 [History Confirmed 06/02/23] Active Medications Amlodipine Besylate (Amlodipine Besylate 5 Mg Tablet) 5 mg BY MOUTH DAILY [facility] Last Admin: 06/15/23 09:57 Dose: 5 mg Atorvastatin Calcium (Atorvastatin 40 Mg Tablet) 40 mg PO QHS [facility] Last Admin: 06/14/23 20:55 Dose: 40 mg Carvedilol (Carvedilol 6.25 Mg Tablet) 6.25 mg PO Q12HR
[2023-06-15 18:08] LABS: Partial Thromboplastin Time 67.3 SECONDS (22.3-36.8)
== END 2023-06-15 18:20 | disposition short-term general hospital (02) | DRG 97 ==
LOC: ANHED 06-02 07:27 → ANHIMU 06-02 08:03 → ANH3MEDSUR 06-12 06:38
PROVIDERS: Internal Medicine; Physician Assistant; Student in an Organized Health Care Education/Training Program; Admitting Provider Student in an Organized Health Care Education/Training Program; Emergency Provider Emergency Medicine; PCP Physician Assistant Medical; Visit Provider General Practice
DX: G03.9 Meningitis, unspecified (principal); I50.43 Acute on chronic combined systolic (congestive) and diastolic (congestive) heart failure; J18.9 Pneumonia, unspecified organism; G93.40 Encephalopathy, unspecified; A86 Unspecified viral encephalitis; Z68.41 Body mass index [BMI] 40.0-44.9, adult; I82.A12 Acute embolism and thrombosis of left axillary vein; I82.622 Acute embolism and thrombosis of deep veins of left upper extremity; I47.29 Other ventricular tachycardia; G95.89 Other specified diseases of spinal cord; I11.0 Hypertensive heart disease with heart failure; E11.9 Type 2 diabetes mellitus without complications; Z79.4 Long term (current) use of insulin; E78.5 Hyperlipidemia, unspecified; I44.7 Left bundle-branch block, unspecified; G47.33 Obstructive sleep apnea (adult) (pediatric); E66.01 Morbid (severe) obesity due to excess calories; J44.9 Chronic obstructive pulmonary disease, unspecified; K21.9 Gastro-esophageal reflux disease without esophagitis; R79.89 Other specified abnormal findings of blood chemistry; R47.1 Dysarthria and anarthria; R13.10 Dysphagia, unspecified; Z87.891 Personal history of nicotine dependence; Z85.828 Personal history of other malignant neoplasm of skin; Z86.73 Personal history of transient ischemic attack (TIA), and cerebral infarction without residual deficits; Z96.653 Presence of artificial knee joint, bilateral
CPT/HCPCS: 36415; 36569; 36600; 62270; 62328; 70450; 70551; 70553; 71045; 71275; 72156; 73070; 74177; 80048; 80053; 80202; 80307; 81001; 82010; 82140; 82550; 82607; 82784; 82805; 82945; 82948; 83605; 83690; 83735; 83880; 84100; 84145; 84157; 84443; 84484; 84550; 85025; 85027; 85055; 85610; 85652; 85730; 86140; 86592; 86617; 86738; 86787; 86788; 87015; 87040; 87070; 87102; 87116; 87205; 87206; 87449; 87497; 87529; 87637; 87641; 87798; 87899; 89051; 92610; 93005; 93970; 94640; 96361; 96365; 96367; 96372; 96375; 97110; 97161; 97165; 97530; 97535; 99285; A9270; A9577; C1751; C8929; J0133; J0290; J0360; J0696; J1200; J1630; J1644; J1650; J1815; J1940; J2060; J2250; J3370; J3475; J3480; J7030; J7050; J7060; Q9957; Q9967